=== PATIENT | male | born 1945 | race Caucasian/White ===

== ENCOUNTER → 2016-05-02 | Outpatient (CLI) | payer OTHER ==
[~2016-05-02] MED LIST: ASPI81TA28 PO; DCL/500 PO; MULTTAB58 PO
[2016-05-02 12:35] LABS: ESTIMATED AVERAGE GLUCOSE 108 mg/dl; HA1C FLAG Normal (Normal)
== END | disposition home or self-care (01) ==
LOC: C.LABBFT 08:01
PROVIDERS: ATTEND Internal Medicine
DX: R73.9 Hyperglycemia, unspecified (principal)

== ENCOUNTER → 2017-02-22 | Outpatient (CLI) | payer OTHER ==
[2017-02-22 15:39] LABS: BASO % 0.4 %; BASO ABS # 0.03 K/uL (0-0.2); EOS % 1.6 %; EOS ABS # 0.13 K/uL (0-0.5); HEMATOCRIT 43.4 % (42-52); HEMOGLOBIN 14.2 g/dL (14.0-18.0); IG# 0.03 K/uL (0.00-0.02); LYMPH ABS # 1.54 K/uL (1.2-3.4); MEAN CELL VOLUME 90.8 fL (80-100); MEAN CORPUSCULAR HEMOGLOBIN 29.7 pg (25-34); MEAN CORPUSCULAR HGB CONC 32.7 g/dl (32-36); MONO % 11.5 %; MONO ABS # 0.93 K/uL (0.11-0.59); NEUT % 67.1 %; NEUT ABS # 5.45 K/uL (1.4-6.5); PLATELET COUNT 319 K/uL (130-400); RED CELL DISTRIBUTION WIDTH CV 12.9 % (11.5-14.5); WHITE BLOOD COUNT 8.11 K/uL (4.8-10.8)
[2017-02-22 15:50] LABS: ALBUMIN 3.8 gm/dl (3.4-5.0); BLOOD UREA NITROGEN 22 mg/dl (7-18); CALCIUM 8.5 mg/dl (8.5-10.1); CARBON DIOXIDE 29 mmol/L (21-32); CREATININE 0.99 mg/dl (0.60-1.40); GLUCOSE 106 mg/dl (70-99); POTASSIUM 3.8 mmol/L (3.5-5.1); SODIUM 138 mmol/L (136-145)
[2017-02-22 15:51] LABS: ALT/SGPT 34 U/L (12-78); AST/SGOT 25 U/L (15-37)
[2017-02-22 15:53] LABS: ALKALINE PHOSPHATASE 72 U/L (45-117); TOTAL PROTEIN 6.9 gm/dl (6.4-8.2)
== END | disposition home or self-care (01) ==
LOC: C.LAB1850 13:55
PROVIDERS: ATTEND Internal Medicine Infectious Disease
DX: M00.869 Arthritis due to other bacteria, unspecified knee (principal)

== ENCOUNTER → 2017-05-11 | Outpatient (CLI) | payer OTHER ==
[2017-05-12 06:52] LABS: HEMOGLOBIN A1C 5.4 % (4.5-5.6)
== END | disposition home or self-care (01) ==
LOC: C.LABBFT 14:22
PROVIDERS: ATTEND Internal Medicine
DX: R73.9 Hyperglycemia, unspecified (principal)

== ENCOUNTER 2018-11-05 15:19 | Inpatient (IN) ==
[2018-11-05] MEDS ORDERED: PIPERACILL/TAZOBAC CONSULT ACTIVE PRN (15:40)
[2018-11-05] MEDS ORDERED: PIPERACILLIN/TAZOBACTAM 4.5 GM/120 ML BAG IV ONE (15:40)
[2018-11-05] MEDS ORDERED: SODIUM CHLORIDE 0.9% 500 ML IV SCH (15:45)
--- NOTE | 2018-11-05 16:00 | XRay Report ---
XR chest 1V portable CLINICAL HISTORY: weakness COMPARISON STUDY: Chest radiograph September 02, 2011. FINDINGS: Lung volumes are normal. Lungs are clear. There is no pneumothorax or pleural effusion. Car diomegaly is noted. Mediastinal contours are normal. Note is made of pulmonary vascular congestion. T here is no evidence for pulmonary edema. Incidental note is made of multiple old left rib fractures. IMPRESSION: Cardiomegaly and pulmonary vascular congestion. Electronically signed by: Jersey Puri M.D. 11/05/2018 3:59 PM
--- NOTE | 2018-11-05 16:02 | XRay Report ---
XR toe RT min 2V CLINICAL HISTORY: pain, trauma COMPARISON: None FINDINGS: Note is made of an acute comminuted mildly displaced fracture within the mid to distal asp ect of the proximal phalanx of the right first toe. Soft tissue swelling is present. No additional fr actures are noted. IMPRESSION: Acute comminuted mildly displaced fracture within the proximal phalanx of the right first toe. Electronically signed by: Jersey Puri M.D. 11/05/2018 4:01 PM
[2018-11-05 16:45] LABS: Basophils # (auto) 0.04 K/uL (0-0.2); Basophils % (auto) 0.5 %; Eosinophils # (auto) 0.38 K/uL (0-0.5); Eosinophils % (auto) 4.4 %; Hematocrit (blood only) 40.3 % (42-52); Hemoglobin 12.9 g/dL (14.0-18.0); Immature Granulocytes # (auto) 0.02 K/uL (0.00-0.02); Immature Granulocytes % (auto) 0.2 %; Lymphocytes # (auto) 1.43 K/uL (1.2-3.4); Lymphocytes % (auto) 16.6 %; Mean Corpuscular Hemoglobin 29.5 pg (25-34); Mean Corpuscular Volume 92.2 fL (80-100); Mean Platelet Volume 10.7 fL (7.4-10.4); Monocytes # (auto) 0.99 K/uL (0.11-0.59); Monocytes % (auto) 11.5 %; Neutrophils # (auto) 5.75 K/uL (1.4-6.5); Neutrophils % (auto) 66.8 %; Platelet Count 298 K/uL (130-400); RDW Coefficient of Variation 13.3 % (11.5-14.5); RDW Standard Deviation 44.7 fL (36.4-46.3); Red Blood Count 4.37 M/uL (4.7-6.1); White Blood Count 8.61 K/uL (4.8-10.8)
[2018-11-05 16:58] LABS: INR 1.1 (0.9-1.1); Partial Thromboplastin Time 26.2 Seconds (21.0-31.0)
[2018-11-05 17:05] LABS: Alanine Aminotransferase 35 U/L (12-78); Albumin Level 3.8 gm/dl (3.4-5.0); Aspartate Aminotransferase 21 U/L (15-37); BUN Creatinine Ratio 19.4 (10-20); Blood Urea Nitrogen 20 mg/dl (7-18); Calcium 8.8 mg/dl (8.5-10.1); Carbon Dioxide 28 mmol/L (21-32); Chloride 106 mmol/L (98-107); Creatinine Clr Calc Pharmacy 71.1 ml/min; Est GFR (African American) 81.6; Est GFR (Non-African American) 70.4; Glucose 98 mg/dl (70-99); Magnesium 2.1 mg/dl (1.8-2.4); Potassium 3.9 mmol/L (3.5-5.1); Sodium 140 mmol/L (136-145)
[2018-11-05 17:10] LABS: Albumin Globulin Ratio 1.3 (0.9-2); Alkaline Phosphatase 83 U/L (45-117); Bilirubin,Total 0.5 mg/dl (0.2-1); Creatine Kinase 117 U/L (39-308); Total Protein 6.8 gm/dl (6.4-8.2); Troponin I < 0.015 ng/ml (0-0.045)
[2018-11-05] MEDS ORDERED: IOVERSOL 100ml IV PRN (17:46)
--- NOTE | 2018-11-05 17:53 | Emergency Department Note ---
Entered by Kay Johnson acting as a scribe for Bill Calvillo MD History of Present Illness General Chief complaint: Cardiac Assessment Stated complaint: IRREGULAR EKG,INFECTION IN LOWER LEG/FOOT Time Seen by Provider: 11/05/18 15:26 Source: patient History of Present Illness Provider complaint: Atrial Fibrillation Onset (ago): day(s) 1 Location: chest Relieved By: + none Exacerbated By: + none Associated symptoms: + other (Left leg pain and right toe pain); no chest pain, no fever/chills and no shortness of breath The patient is a 73 year old male who presents to the Emergency Room with complaints of atrial fibrillation that was noticed today at the doctor's office. The patient states that he was at a doctor appointment for a right toe injury that occurred 6 days ago and a left leg injury that occurred 4 days ago and they noticed his EKG showed atrial fibrillation. The patient reports that the symptoms are not relieved nor exacerbated by anything specific. The patient denies any chest pain, fever/chills, or shortness of breath. The patient mentioned that he takes 1 baby aspirin a day but denies being on any blood thinners. Home Medications Home Medications Medication Instructions Recorded Confirmed Type dicloxacillin 500 mg capsule 500 mg PO BID #60 cap 06/04/18 11/05/18 History multivitamin-ferrous 1 tab PO QAM 06/04/18 11/05/18 History fumarate-folic acid 18 mg-400 mcg tablet aspirin 81 mg PO QAM 11/05/18 11/05/18 History Allergies Allergy/AdvReac Type Severity Reaction Status Date / Time house dust Allergy Verified 11/05/18 16:01 No Known Drug Allergies Allergy Verified 11/05/18 16:01 Past Med/Surg History Medical History Erectile dysfunction (Acute) Heme positive stool (Acute) Hyperglycemia (Acute) Hyperlipidemia (Acute) Methicillin susceptible Staphylococcus aureus infection (Acute) Pyogenic bacterial arthritis of knee (Acute) Surgical History Hx of tonsillectomy S/P surgical removal of pilonidal cyst Family History Mother Stroke Father Aneurysm Emphysema lung Social History Preferred Language: Salvadorean Visual Impairment: No Limitations Hearing Ability: Normal Beliefs That Will Affect Care: None marital status: Current Living Situation: Spouse current occupational status: retired Feels Safe at Home: Yes Smoking Status: Never smoker Second Hand Exposure: No ; Hx Alcohol Use: Yes Alcohol type: beer Alcohol Intake Frequency: Holidays/Special Occasions Hx Substance Use: No Childhood Exposure to Second-Hand Smoke: No Physical Activity Frequency: Daily Review of Systems See HPI for pertinent positives & negatives. and A total of 10 systems reviewed and were otherwise negative Physical Exam Vital Signs Vital Signs - 24 hr 11/05/18 15:20 11/05/18 15:22 11/05/18 16:52 Temperature 36.5 C Temperature Source Oral Sepsis Recent Fever Within 48 Hours No Sepsis New/Unexplained Change in Mental Status No Sepsis Action Taken by Nursing No Action Required Pulse Rate 96 H 79 Pulse Rate [Apical] 81 Respiratory Rate 18 21 Respiratory Effort / Characteristics Non-Labored Respiratory Depth Normal Blood Pressure 153/76 H Blood Pressure [Left Arm] 125/84 Blood Pressure Mean 101 Blood Pressure Mean [Left Arm] 97 Pulse Oximetry 99 99 Oxygen Delivery Method Room Air Room Air GENERAL: Patient is in no acute distress. HEENT: Healing wounds to left cheek with scabs present and no surrounding erythema. Mucous membranes moist. No nasal congestion. NECK: No stridor, no adenopathy, no meningismus, trachea is midline. LUNGS: Clear to auscultation bilaterally, no wheeze, no rhonchi, breath sounds equal. HEART: Without murmurs gallops or rubs, regular rate and rhythm. ABDOMEN: Soft, nontender, bowel sounds positive, no hernias, no peritonitis. EXTREMITIES: Right first toe is erythematous, tender and swollen with no gross deformity or drainage, there is warmth present. Fluctuant erythematous tender lesion to proximal left leg. There is surrounding erythema and the entire left leg from knee down to ankle is contused. NEUROLOGIC: Oriented x 3, no acute motor or sensory deficits, no focal weakness. SKIN: No rash, no jaundice, no diaphoresis. Course 152: Past medical records reviewed. The patient was evaluated in room B12B. A complete history and physical exam was performed. 1734: I reevaluated the patient and spoke with Dr. Burnett-Hospitalist about the patient's case and she will accept the patient for further evaluation. Administered Medications Ioversol (Optiray 320 100ml) 94 ml IV ONCE PRN PRN Reason: Interaction Checking Stop: 11/09/18 17:45 Last Admin: 11/05/18 17:47 Dose: 94 ml Documented by: [id number] Discontinued Medications Piperacillin Sod/Tazobactam Sod (Zosyn) 4.5 gm in 120 mls @ 240 mls/hr IV NOW ONE Stop: 11/05/18 16:09 Last Infusion: 11/05/18 17:48 Dose: 0 mls/hr Documented by: [id number] Admin: 11/05/18 16:49 Dose: 240 mls/hr Documented by: [id number] Sodium Chloride (Nss) 500 mls @ 999 mls/hr IV .Q31M MICHAEL Stop: 11/05/18 16:15 Last Infusion: 11/05/18 18:15 Dose: 0 mls/hr Documented by: [id number] Admin: 11/05/18 16:50 Dose: 999 mls/hr Documented by: [id number] Medical Decision Making Differential Diagnosis Differentials Include: Atrial fibrillation, Atrial flutter, Sepsis, Bacteremia, Abscess, Electrolyte imbalance, Anemia, Toe Fracture, DVT, and CT. Medical Records Attestation: I reviewed the patient's medical records. Home Medications Current Medication List: was personally reviewed by me Laboratory Data Attestation: I reviewed the patient's lab results. Result diagrams: 11/05/18 16:29 11/05/18 16:29 Lab Results 11/05/18 11/05/18 11/05/18 Range/Units 16:29 16:29 16:29 WBC 8.61 (4.8-10.8) K/uL RBC 4.37 L (4.7-6.1) M/uL Hgb 12.9 L (14.0-18.0) g/dL Hct 40.3 L (42-52) % MCV 92.2 (80-100) fL MCH 29.5 (25-34) pg MCHC 32.0 (32-36) g/dL RDW Std Deviation 44.7 (36.4-46.3) fL RDW Coeff of Jonnie 13.3 (11.5-14.5) % Plt Count 298 (130-400) K/uL MPV 10.7 H (7.4-10.4) fL Immature Gran % (Auto) 0.2 % Neut % (Auto) 66.8 % Lymph % (Auto) 16.6 % Placer % (Auto) 11.5 % Eos % (Auto) 4.4 % Baso % (Auto) 0.5 % Immature Gran # (Auto) 0.02 (0.00-0.02) K/uL Neut # (Auto) 5.75 (1.4-6.5) K/uL Lymph # (Auto) 1.43 (1.2-3.4) K/uL Placer # (Auto) 0.99 H (0.11-0.59) K/uL Eos # (Auto) 0.38 (0-0.5) K/uL Baso # (Auto) 0.04 (0-0.2) K/uL PT (9.0-12.0) Seconds INR (0.9-1.1) APTT (21.0-31.0) Seconds PTT Ratio Sodium 140 (136-145) mmol/L Potassium 3.9 (3.5-5.1) mmol/L Chloride 106 (98-107) mmol/L Carbon Dioxide 28 (21-32) mmol/L Anion Gap 6.0 (3-11) BUN 20 H (7-18) mg/dl Creatinine 1.04 (0.6-1.4) mg/dl Est Cr Clr Drug Dosing 71.1 ml/min Est GFR ( Amer) 81.6 Est GFR (Non-Af Amer) 70.4 BUN/Creatinine Ratio 19.4 (10-20) Glucose 98 (70-99) mg/dl Lactate 1.4 (0.4-2.0) mmol/L Calcium 8.8 (8.5-10.1) mg/dl Magnesium 2.1 (1.8-2.4) mg/dl Total Bilirubin 0.5 (0.2-1) mg/dl AST 21 (15-37) U/L ALT 35 (12-78) U/L Alkaline Phosphatase 83 (45-117) U/L Total Creatine Kinase 117 (39-308) U/L Troponin I < 0.015 (0-0.045) ng/ml Total Protein 6.8 (6.4-8.2) gm/dl Albumin 3.8 (3.4-5.0) gm/dl Globulin 3.0 (2.5-4.0) gm/dl Albumin/Globulin Ratio 1.3 (0.9-2) TSH (0.300-4.500) uIu/ml 11/05/18 11/05/18 Range/Units 16:29 16:29 WBC (4.8-10.8) K/uL RBC (4.7-6.1) M/uL Hgb (14.0-18.0) g/dL Hct (42-52) % MCV (80-100) fL MCH (25-34) pg MCHC (32-36) g/dL RDW Std Deviation (36.4-46.3) fL RDW Coeff of Jonnie (11.5-14.5) % Plt Count (130-400) K/uL MPV (7.4-10.4) fL Immature Gran % (Auto) % Neut % (Auto) % Lymph % (Auto) % Placer % (Auto) % Eos % (Auto) % Baso % (Auto) % Immature Gran # (Auto) (0.00-0.02) K/uL Neut # (Auto) (1.4-6.5) K/uL Lymph # (Auto) (1.2-3.4) K/uL Placer # (Auto) (0.11-0.59) K/uL Eos # (Auto) (0-0.5) K/uL Baso # (Auto) (0-0.2) K/uL PT 11.0 (9.0-12.0) Seconds INR 1.1 (0.9-1.1) APTT 26.2 (21.0-31.0) Seconds PTT Ratio 1.0 Sodium (136-145) mmol/L Potassium (3.5-5.1) mmol/L Chloride (98-107) mmol/L Carbon Dioxide (21-32) mmol/L Anion Gap (3-11) BUN (7-18) mg/dl Creatinine (0.6-1.4) mg/dl Est Cr Clr Drug Dosing ml/min Est GFR ( Amer) Est GFR (Non-Af Amer) BUN/Creatinine Ratio (10-20) Glucose (70-99) mg/dl Lactate (0.4-2.0) mmol/L Calcium (8.5-10.1) mg/dl Magnesium (1.8-2.4) mg/dl Total Bilirubin (0.2-1) mg/dl AST (15-37) U/L ALT (12-78) U/L Alkaline Phosphatase (45-117) U/L Total Creatine Kinase (39-308) U/L Troponin I (0-0.045) ng/ml Total Protein (6.4-8.2) gm/dl Albumin (3.4-5.0) gm/dl Globulin (2.5-4.0) gm/dl Albumin/Globulin Ratio (0.9-2) TSH 4.200 (0.300-4.500) uIu/ml Imaging Data Radiologist's Impression: Radiology results as stated below per my review and the radiologist's interpretation: XR chest 1V portable CLINICAL HISTORY: weakness COMPARISON STUDY: Chest radiograph September 02, 2011. FINDINGS: Lung volumes are normal. Lungs are clear. There is no pneumothorax or pleural effusion. Cardiomegaly is noted. Mediastinal contours are normal. Note is made of pulmonary vascular congestion. There is no evidence for pulmonary edema. Incidental note is made of multiple old left rib fractures. IMPRESSION: Cardiomegaly and pulmonary vascular congestion. Electronically signed by: Jersey Puri M.D. 11/05/2018 3:59 PM XR toe RT min 2V CLINICAL HISTORY: pain, trauma COMPARISON: None FINDINGS: Note is made of an acute comminuted mildly displaced fracture within the mid to distal aspect of the proximal phalanx of the right first toe. Soft tissue swelling is present. No additional fractures are noted. IMPRESSION: Acute comminuted mildly displaced fracture within the proximal phalanx of the right first toe. Electronically signed by: Jersey Puri M.D. 11/05/2018 4:01 PM Left lower leg CT scan: IMPRESSION: 1. Superficial hyperdense abnormality in the anterolateral proximal lower leg centered in the subcutaneous tissue and tracking along the superficial fascia. This could either represent hematoma or abnormal enhancing soft tissue. The density favors enhancing soft tissue. Ultrasound of this region is recommended to assess for vascular flow, which could confirm abnormal soft tissue. 2. No evidence of abscess. No CT evidence of osteomyelitis. 3. No acute osseous injury. 4. Advanced degenerative changes of the left knee. 5. Posterior mild deformity and internal fixation of the right lower leg. ECG Data Attestation: I personally reviewed and interpreted this ECG as follows: Indication: other (Atrial Fibrillation ) Rate (beats per minute): 99 Rhythm: atrial fibrillation Findings: + other (QTC 441); no PVC, no ST elevation and no acute ischemic c hange Blood Pressure Blood Pressure Findings: Elevated blood pressure Blood Pressure Disposition: further management by hospitalist PAGE Narrative There is no leukocytosis. The patient does have a very mild anemia with a hemoglobin of 12.9. There is no coagulopathy. No significant electrolyte abnormality or kidney failure. Lactic acid level is not elevated making sepsis less likely. There was no liver enzyme elevation. The patient appeared to be in a euthyroid state. EKG shows A. fib, no acute ischemic change. Cardiac enzyme testing x1 is not consistent with acute cardiac injury. Chest film does not show pneumonia or worrisome CHF. Right first toe film does show a proximal phalanx fracture. Left leg CT scan shows a hematoma, no obvious abscess. Patient received IV Zosyn as antibiotic coverage, he was given IV saline. The patient requires a hospital stay. He has new onset A. fib. He has a left leg hematoma which I think is becoming infected. His right first toe is fractured. I did speak with case management. The on-call hospitalist was consulted. The patient is aware of all his findings. Of note, as the patient's atrial fibrillation is rate controlled, no IV Cardizem was initiated. Impression & Plan New onset a-fib, Fracture of right toe, Hematoma of left lower extremity, Cellulitis of left leg Discharge Plan Visit Data Chief Complaint: Cardiac Assessment Stated Complaint: IRREGULAR EKG,INFECTION IN LOWER LEG/FOOT ED Provider: Bill Calvillo Discharge Problem: New onset a-fib, Fracture of right toe, Hematoma of left lower extremity, Cellulitis of left leg Forms Stand Alone Forms: [facility] Prescriptions Prescriptions: No Action dicloxacillin 500 mg capsule 500 mg PO BID Qty: 60 RF: 0 Centrum 18-400 mg-mcg tablet 1 tab PO QAM RF: 0 aspirin 81 mg Tablet,Delayed Release (Dr/Ec) 81 mg PO QAM RF: 0 Discharge Problem: Fracture of right toe Qualifiers: Encounter type: initial encounter Toe: unspecified toe Fracture type: closed Physeal involvement: unspecified Qualified Code(s): S92.911A - Unspecified fracture of right toe(s), initial encounter for closed fracture Hematoma of left lower extremity Qualifiers: Encounter type: initial encounter Qualified Code(s): S80.12XA - Contusion of left lower leg, initial encounter The scribe's documentation has been prepared under my direction and personally reviewed by me in its entirety. I confirm that the note above accurately reflects all work, treatment, procedures, and medical decision making performed by me.
--- NOTE | 2018-11-05 18:20 | CT Scan Report ---
CT tib/fib LT w con CLINICAL HISTORY: 73 years-old Male presenting with poss abscess or deep infection. TECHNIQUE: Multidetector CT of the left lower leg was performed after the administration of intraveno us contrast. IV contrast: 94 mL of Optiray 320. One or more dose lowering techniques were used consis tent with the principles of ALARA (as low as reasonably achievable), including automatic exposure con trol, mA or kV adjustment to individual patient size, and/or use of iterative reconstruction. COMPARISON: None. CT DOSE (mGy.cm): The estimated cumulative dose is 308.45 mGycm. FINDINGS: Chief Drafter topogram: Intramedullary nail fixation with interlocking screws in the right lower leg with leigha akage of one of the 2 proximal screws. Visualized portion of the right lower leg demonstrates intramedullary nail fixation. The left lower leg demonstrates significant fatty atrophy of the medial head of the gastrocnemius and soleus muscles. Focal hyperdense subcutaneous collection in the proximal anterolateral lower leg kelly suring 4.4 x 1.9 x 3.2 cm. This appears to track along the superficial fascia posterolaterally. The l ack of a precontrast phase limits evaluation for enhancement. This could either represent hematoma or abnormal soft tissue. The density may favor enhancing soft tissue. No evidence of a rim-enhancing collection in the lower leg. Nonspecific diffuse subcutaneous edema an d mild skin thickening. Vasculature is grossly patent though significant atherosclerosis is evident. Osseous structures intact without evidence of fracture. Advanced degenerative changes of the knee inocencio nt with joint space loss and osteophytosis to a moderate to severe degree. The left ankle mortise is congruent. Posttraumatic deformity of the inferior pole of the lateral malleolus suspected. IMPRESSION: 1. Superficial hyperdense abnormality in the anterolateral proximal lower leg centered in the subcut aneous tissue and tracking along the superficial fascia. This could either represent hematoma or abno rmal enhancing soft tissue. The density favors enhancing soft tissue. Ultrasound of this region is re commended to assess for vascular flow, which could confirm abnormal soft tissue. 2. No evidence of abscess. No CT evidence of osteomyelitis. 3. No acute osseous injury. 4. Advanced degenerative changes of the left knee. 5. Posterior mild deformity and internal fixation of the right lower leg. Electronically signed by: Bill Winters M.D. 11/05/2018 6:18 PM
--- NOTE | 2018-11-05 21:27 | History & Physical Report ---
Date of Service November 05, 2018 Assessment & Plan (1) New onset a-fib: Admit to inpatient on telemetry Consult infectious diseases Dr. Deleon for cellulitis/infected hematoma Consult cardiology for new onset of A. fib's Consult orthopedics at [facility] partner of Dr. Apodaca for celluli tis/hematoma of the left lower extremity and fracture of the big toe right foot. Paged to Dr. Bill Sepulveda. Vital signs every 4 hours BNP pending Follow follow-up CBC CMP CRP Replenish electrolytes daily Continue doxycycline for prior pyogenic bacterial arthritis of the knee Added clindamycin 600 mg every 8 hours IV Started probiotic N.p.o. after midnight for possible procedure by Ortho DVT prophylaxis contraindicated since patient has large hematoma and heparin bolus drip contraindicated for A. fib's since patient has large hematoma. Gentle hydration with IV fluid 80 cc/h of normal saline when patient is n.p.o. Follow-up blood cultures Keep left lower extremity elevated-RICE Pain management with morphine IV Continue aspirin 81 Full code Present on Admission?: Yes (2) Fracture of right toe: As above (3) Hematoma of left lower extremity: As above Present on Admission?: Yes (4) Cellulitis of left leg: As above Present on Admission?: Yes (5) Allergic rhinitis: Present on Admission?: Yes (6) Hyperglycemia: A1c pending. Patient glucose today is 98. Reassess after A1c is resulted. No signs of hyperglycemia at this visit. Present on Admission?: Yes (7) Hyperlipidemia: Lipid panel pending. There is a lipid panel start lipid lowering agent. Present on Admission?: Yes (8) Methicillin susceptible Staphylococcus aureus infection: Patient has been on doxycycline since 2010 when he had pyogenic bacterial arthritis of the knee. We will calls consult to Dr. Deleon infectious diseases. Present on Admission?: Yes History of Present Illness Chief Complaint: New onset of A. fib's, left lower extremity hematoma and cellulitis right big toe fracture. 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 fib's, a large hematoma of the left lower extremity below the knee and displaced fracture of the proximal phalanx of the right first toe. Patient states that a right toe injury occurred 6 days ago and left leg injury occurred 4 days ago and the EKG showed atrial fibrillation. Patient reports that his symptoms are not relieved or exacerbated by any specific activity. Patient denies any headache fever chills, chest pain shortness of breath abdominal pain frequency urgency hematuria dysuria. Patient said that he takes usually 1 baby aspirin but denies being on any blood thinners. For methicillin suspectible Staphylococcus aureus per recommendation of Dr. Deleon patient is on doxycycline lifelong for the prior left knee infection. Labs are reviewed: WBC 8.61, hemoglobin 12.9, hematocrit 40.3, platelets 298, PT 11, INR 1.1, APTT 26.2, sodium 140, potassium 3.9, chloride 106, BUN 20, creatinine 1.04, GFR 70.4, glucose 98, hemoglobin A1c pending lactate 1.4, magnesium 2.1, troponin 0 0.015, TSH 4.2. X-rays of right foot big toe shows acute commuted comminuted mildly displaced fracture with the proximal phalanx of the right first toe. CT scan of tibia-fibula of the left lower extremity shows's superficial hyperdense abnormality in the anterior lateral proximal lower leg centered in the subcutaneous tissue and tracking along with superficial fascia. This could either represent hematoma or abnormal enhancing soft tissue. Discussed with Dr. Winters and he was not convinced that patient has necrotizing fasciitis. The density favors into enhancing soft tissue. He did recommend ultrasound to assess the vascular flow. There was no evidence of abscess and there is no evidence of osteomyelitis. No acute osseous injury,, advanced degenerative changes of the left knee. Patient had infection of the left knee in the past and he was he was treated by Dr. Saab at [facility]. Decision was made to admit patient to PCU on telemetry for evaluation of new onset of A. fib's, large cellulitis/hematoma of the left lower extremity and fracture of the right big toe. Allergies Allergy/AdvReac Type Severity Reaction Status Date / Time house dust Allergy Verified 11/05/18 16:01 No Known Drug Allergies Allergy Verified 11/05/18 16:01 Home Medications Home Medications Medication Instructions Recorded Confirmed Type dicloxacillin 500 mg capsule 500 mg PO BID #60 cap 06/04/18 11/05/18 History multivitamin-ferrous 1 tab PO QAM 06/04/18 11/05/18 History fumarate-folic acid 18 mg-400 mcg tablet aspirin 81 mg PO QAM 11/05/18 11/05/18 History Past Med/Surg History Medical History Erectile dysfunction (Acute) Heme positive stool (Acute) Hyperglycemia (Acute) Hyperlipidemia (Acute) Methicillin susceptible Staphylococcus aureus infection (Acute) Pyogenic bacterial arthritis of knee (Acute) Surgical History Hx of tonsillectomy S/P surgical removal of pilonidal cyst Family History Mother Stroke Father Aneurysm Emphysema lung Social History Preferred Language: Monegasque Visual Impairment: No Limitations Hearing Ability: Normal Beliefs That Will Affect Care: None marital status: Current Living Situation: Spouse current occupational status: retired Feels Safe at Home: Yes Smoking Status: Never smoker Second Hand Exposure: No ; Hx Alcohol Use: Yes Alcohol type: beer Alcohol Intake Frequency: Holidays/Special Occasions Hx Substance Use: No Childhood Exposure to Second-Hand Smoke: No Physical Activity Frequency: Daily Review of Systems Review of Systems: All systems reviewed & are unremarkable except as noted in HPI & below Physical Exam Constitutional: WD/WN, vitals as above well developed Eyes: PERRL, conjunctivae normal, anicteric sclerae ENMT: external ear and nose normal, oropharynx normal Neck: trachea midline, no thyromegaly Respiratory: normal respiratory effort, lungs clear to auscultation Cardiovascular: Rate/Rhythm: + irregularly irregular Gastrointestinal (Abdomen): normal bowel sounds, soft, nontender, no hepatos plenomegaly Musculoskeletal: Knee: + ecchymosis (Large ecchymosis of the left lower extremity, erythema and cellulitis warm to touch. Bruised left big toe. Deformity of the right big toe and bruise) and + limited ROM of knee Skin: + ecchymosis Neurologic: patellar DTR's 2+ bilat, sensation intact Psychiatric: A+Ox3, euthymic affect Lymphatic: no cervical or axillary lymphadenopathy Results & Data Vital Signs (Past 12 Hours) Vital Signs Temp Pulse Pulse Resp BP BP Pulse Ox 11/05/18 21:11 91 H 18 134/78 95 11/05/18 19:30 80 18 128/87 99 11/05/18 16:52 79 81 21 125/84 99 11/05/18 15:22 36.5 C 96 H 18 153/76 H 99 Code Status & VTE Plan Code Status Full code VTE Prophylaxis Plan VTE Prophylaxis will be ordered: No PG Care Time/CCT Total # of Minutes Spent Total Time Spent with Patient: Total time spent is greater than 50% in coordination of care (as documented) at patient's floor/unit and/or counseling patient: (1) Fracture of right toe Encounter type: initial encounter Fracture type: closed Physeal involvement: unspecified Toe: unspecified toe Qualified Code(s): S92.911A - Unspecified fracture of right toe(s), initial encounter for closed fracture (2) Hematoma of left lower extremity Encounter type: initial encounter Qualified Code(s): S80.12XA - Contusion of left lower leg, initial encounter
[2018-11-05] MEDS ORDERED: ONDANSETRON INJ 2 MG/ML 2 ML VIAL IV PRN (22:07)
[2018-11-05] MEDS ORDERED: ACETAMINOPHEN 325 MG TAB PO PRN (22:07)
[2018-11-05] MEDS ORDERED: ALUMINUM/MAGNESIUM SUSP 30 ML UDC PO PRN (22:07)
[2018-11-05] MEDS ORDERED: MAGNESIUM HYDROXIDE SUSP 30 ML UDC PO PRN (22:07)
[2018-11-05] MEDS ORDERED: ZOLPIDEM TARTRATE 5 MG TAB PO PRN (22:07)
[2018-11-05] MEDS ORDERED: POLYETHYLENE (MIRALAX) 17 GM PACK PO PRN (22:07)
[2018-11-05] MEDS ORDERED: MoRPHine SULFATE 2 MG/ML CARP IV PRN (22:07)
[2018-11-05] MEDS: METOPROLOL TARTRATE 25 MG TAB PO SCH (22:52)
[2018-11-05] MEDS: SODIUM CHLORIDE 0.9% 1000ML 1,000 ML IV SCH (22:53)
[2018-11-05] MEDS: CLINDAMYCIN 600 MG in DEXTROSE 5% 50 ML IV SCH (23:52)
[2018-11-05] MEDS: DICLOXACILLIN SODIUM 250 MG CAP PO SCH (23:53)
[2018-11-06 05:41] LABS: Basophils # (auto) 0.04 K/uL (0-0.2); Basophils % (auto) 0.6 %; Eosinophils # (auto) 0.46 K/uL (0-0.5); Eosinophils % (auto) 6.8 %; Hematocrit (blood only) 37.7 % (42-52); Hemoglobin 12.1 g/dL (14.0-18.0); Immature Granulocytes # (auto) 0.02 K/uL (0.00-0.02); Immature Granulocytes % (auto) 0.3 %; Lymphocytes # (auto) 1.33 K/uL (1.2-3.4); Lymphocytes % (auto) 19.6 %; Mean Corpuscular Hemoglobin 29.2 pg (25-34); Mean Corpuscular Hgb Conc 32.1 g/dL (32-36); Mean Corpuscular Volume 90.8 fL (80-100); Mean Platelet Volume 10.8 fL (7.4-10.4); Monocytes # (auto) 0.96 K/uL (0.11-0.59); Monocytes % (auto) 14.2 %; Neutrophils # (auto) 3.96 K/uL (1.4-6.5); Neutrophils % (auto) 58.5 %; Platelet Count 278 K/uL (130-400); RDW Coefficient of Variation 13.4 % (11.5-14.5); RDW Standard Deviation 44.2 fL (36.4-46.3); Red Blood Count 4.15 M/uL (4.7-6.1); White Blood Count 6.77 K/uL (4.8-10.8)
[2018-11-06] MEDS: CLINDAMYCIN 600 MG in DEXTROSE 5% 50 ML IV SCH ×2 (06:01→14:41)
[2018-11-06 06:09] LABS: INR 1.1 (0.9-1.1); Partial Thromboplastin Time 28.1 Seconds (21.0-31.0); Prothrombin Time 11.2 Seconds (9.0-12.0)
[2018-11-06 06:12] LABS: Albumin Level 3.3 gm/dl (3.4-5.0); BUN Creatinine Ratio 15.6 (10-20); Calcium 7.9 mg/dl (8.5-10.1); Est GFR (African American) 93.4; Est GFR (Non-African American) 80.6; Potassium 4.1 mmol/L (3.5-5.1)
[2018-11-06 06:23] LABS: Albumin Globulin Ratio 1.2 (0.9-2); Bilirubin,Total 0.6 mg/dl (0.2-1); C Reactive Protein 0.66 mg/dl (0-0.29); Globulin 2.8 gm/dl (2.5-4.0); Thyroid Stimulating Hormone 5.36 uIu/ml (0.300-4.500); Total Protein 6.1 gm/dl (6.4-8.2)
[2018-11-06] MEDS: LACTOBACILLUS ACIDOPHILUS 1 GM PACK PO SCH ×2 (07:30→11:02)
[2018-11-06] MEDS: DICLOXACILLIN SODIUM 250 MG CAP PO SCH (07:30)
[2018-11-06] MEDS: METOPROLOL TARTRATE 25 MG TAB PO SCH (07:30)
[2018-11-06] MEDS ORDERED: ASPIRIN 81 MG ECTAB PO SCH (09:00)
[2018-11-06] MEDS ORDERED: CEROVITE ADV FORMULA TAB PO SCH (09:00)
--- NOTE | 2018-11-06 10:07 | Orthopedic Consultation ---
Date of Consultation November 06, 2018 Assessment & Plan (1) Fracture of right toe: Patient was offered a post op shoe for the Right foot but states that he will not use it if one is ordered. He states that he has no pain with ambulation. (2) Cellulitis of left leg: Area lightly compressed with LOUIS bandage Ice with EZ wrap Cont IV ABX per medical service Discussed with Dr. Plasencia and he will plan on I&D at bedside later this afternoon History of Present Illness Reason for Consultation: Right Great toe fracture; Left lower leg cellulitis (abscess vs hematoma) Requesting Physician: Dr. Bill Plasencia Attending Physician: Yon Shaw DO History of Present Illness This 73 yo M was seen this AM in room 229 in consultation for a Right great toe fracture and left lower leg cellulitis with central fluctuance. Patient states that he dropped a wagon tongue on his Right great toe 2 wks ago, and two days later fell in a [place] causing a superficial abrasion/laceration to the lateral surface of his left lower leg. Patient states that his made him go to his PCP's office yesterday and was advised to go to the ED at [facility]. Patient was admitted last night to Telemetry due to new onset A. Fib, Left leg cellulitis and Right great toe fracture. At this time patient has no complaints of toe or leg pain, CP, SOB, nausea, vomiting, fever, chills, sweats or lethargy. Patient is currently on IV Clindamycin and had been on oral Dicloxacillin for septic arthritis of his Left knee and is being followed by Dr. Deleon. Allergies Allergy/AdvReac Type Severity Reaction Status Date / Time house dust Allergy Verified 11/05/18 16:01 No Known Drug Allergies Allergy Verified 11/05/18 16:01 Home Medications Home Medications Medication Instructions Recorded Confirmed Type dicloxacillin 500 mg capsule 500 mg PO BID #60 cap 06/04/18 11/05/18 History multivitamin-ferrous 1 tab PO QAM 06/04/18 11/05/18 History fumarate-folic acid 18 mg-400 mcg tablet aspirin 81 mg PO QAM 11/05/18 11/05/18 History Patient History Medical History Erectile dysfunction (Acute) Heme positive stool (Acute) Hyperglycemia (Acute) Hyperlipidemia (Acute) Methicillin susceptible Staphylococcus aureus infection (Acute) Pyogenic bacterial arthritis of knee (Acute) Surgical History Hx of tonsillectomy S/P surgical removal of pilonidal cyst Family History Mother Stroke Father Aneurysm Emphysema lung Social History Preferred Language: Bengali Communication Ability: Effective Visual Impairment: No Limitations Hearing Ability: Normal Compliance Consultant Required: No Beliefs That Will Affect Care: None marital status: Current Living Situation: Family current occupational status: retired Feels Safe at Home: Yes Smoking Status: Never smoker Tobacco Type: smokeless tobacco ; Second Hand Exposure: No ; Hx Alcohol Use: No Hx Substance Use: No Childhood Exposure to Second-Hand Smoke: No Physical Activity Frequency: Daily Review of Systems Review of Systems: All systems reviewed & are unremarkable except as noted in HPI & below Physical Exam Physical Exam: Right Foot: Edema and erythema of Right great with ecchymosis to dorsal base of toes 1-3. No TTP over IP or MTP. Able to move toe. NV intact. Periph pulses easily palpable. Cap refill < 2 seconds Left lower Le cm x 4 cm raised fluctuant area to lateral aspect of left mid lowe leg with surrounding erythema, ecchymosis and warmth to touch with abraded scabbed over area at proximal border. No drainage/discharge. No TTP. Left knee normal in appearance. ROM 8-90 degrees without pain. Calf soft and supple. Periph pulses palpable. Cap refill < 2 seconds. Results & Data Vital Signs (Past 12 Hours) Vital Signs Temp Pulse Pulse Resp BP Pulse Ox 11/06/18 07:16 36.6 C 79 20 120/73 96 11/06/18 03:56 36.6 C 87 18 117/82 96 11/06/18 00:00 89 11/05/18 23:01 36.6 C 87 18 124/74 96 11/05/18 22:36 91 H Laboratory Results 11/06/18 11/06/18 11/06/18 Range/Units 05:15 05:15 05:15 WBC 6.77 (4.8-10.8) K/uL RBC 4.15 L (4.7-6.1) M/uL Hgb 12.1 L (14.0-18.0) g/dL Hct 37.7 L (42-52) % MCV 90.8 (80-100) fL MCH 29.2 (25-34) pg MCHC 32.1 (32-36) g/dL RDW Std Deviation 44.2 (36.4-46.3) fL RDW Coeff of Jonnie 13.4 (11.5-14.5) % Plt Count 278 (130-400) K/uL MPV 10.8 H (7.4-10.4) fL Immature Gran % (Auto) 0.3 % Neut % (Auto) 58.5 % Lymph % (Auto) 19.6 % [place] % (Auto) 14.2 % Eos % (Auto) 6.8 % Baso % (Auto) 0.6 % Immature Gran # (Auto) 0.02 (0.00-0.02) K/uL Neut # (Auto) 3.96 (1.4-6.5) K/uL Lymph # (Auto) 1.33 (1.2-3.4) K/uL [place] # (Auto) 0.96 H (0.11-0.59) K/uL Eos # (Auto) 0.46 (0-0.5) K/uL Baso # (Auto) 0.04 (0-0.2) K/uL PT 11.2 (9.0-12.0) Seconds INR 1.1 (0.9-1.1) APTT 28.1 (21.0-31.0) Seconds PTT Ratio 1.0 Sodium 142 (136-145) mmol/L Potassium 4.1 (3.5-5.1) mmol/L Chloride 108 H (98-107) mmol/L Carbon Dioxide 27 (21-32) mmol/L Anion Gap 7.0 (3-11) BUN 14 (7-18) mg/dl Creatinine 0.93 (0.6-1.4) mg/dl Est Cr Clr Drug Dosing 79.0 ml/min Est GFR ( Amer) 93.4 Est GFR (Non-Af Amer) 80.6 BUN/Creatinine Ratio 15.6 (10-20) Glucose 93 (70-99) mg/dl Lactate (0.4-2.0) mmol/L Calcium 7.9 L (8.5-10.1) mg/dl Magnesium (1.8-2.4) mg/dl Total Bilirubin 0.6 (0.2-1) mg/dl AST 16 (15-37) U/L ALT 31 (12-78) U/L Alkaline Phosphatase 68 (45-117) U/L Total Creatine Kinase (39-308) U/L Troponin I (0-0.045) ng/ml C-Reactive Protein 0.66 H (0-0.29) mg/dl NT-Pro-B Natriuret Pep 1900 H (0-900) pg/ml Total Protein 6.1 L (6.4-8.2) gm/dl Albumin 3.3 L (3.4-5.0) gm/dl Globulin 2.8 (2.5-4.0) gm/dl Albumin/Globulin Ratio 1.2 (0.9-2) TSH 5.360 H (0.300-4.500) uIu/ml 11/05/18 11/05/18 11/05/18 Range/Units 22:14 16:29 16:29 WBC (4.8-10.8) K/uL RBC (4.7-6.1) M/uL Hgb (14.0-18.0) g/dL Hct (42-52) % MCV (80-100) fL MCH (25-34) pg MCHC (32-36) g/dL RDW Std Deviation (36.4-46.3) fL RDW Coeff of Jonnie (11.5-14.5) % Plt Count (130-400) K/uL MPV (7.4-10.4) fL Immature Gran % (Auto) % Neut % (Auto) % Lymph % (Auto) % [place] % (Auto) % Eos % (Auto) % Baso % (Auto) % Immature Gran # (Auto) (0.00-0.02) K/uL Neut # (Auto) (1.4-6.5) K/uL Lymph # (Auto) (1.2-3.4) K/uL [place] # (Auto) (0.11-0.59) K/uL Eos # (Auto) (0-0.5) K/uL Baso # (Auto) (0-0.2) K/uL PT 11.0 (9.0-12.0) Seconds INR 1.1 (0.9-1.1) APTT 26.2 (21.0-31.0) Seconds PTT Ratio 1.0 Sodium (136-145) mmol/L Potassium (3.5-5.1) mmol/L Chloride (98-107) mmol/L Carbon Dioxide (21-32) mmol/L Anion Gap (3-11) BUN (7-18) mg/dl Creatinine (0.6-1.4) mg/dl Est Cr Clr Drug Dosing ml/min Est GFR ( Amer) Est GFR (Non-Af Amer) BUN/Creatinine Ratio (10-20) Glucose (70-99) mg/dl Lactate (0.4-2.0) mmol/L Calcium (8.5-10.1) mg/dl Magnesium (1.8-2.4) mg/dl Total Bilirubin (0.2-1) mg/dl AST (15-37) U/L ALT (12-78) U/L Alkaline Phosphatase (45-117) U/L Total Creatine Kinase (39-308) U/L Troponin I (0-0.045) ng/ml C-Reactive Protein (0-0.29) mg/dl NT-Pro-B Natriuret Pep 1962 H (0-900) pg/ml Total Protein (6.4-8.2) gm/dl Albumin (3.4-5.0) gm/dl Globulin (2.5-4.0) gm/dl Albumin/Globulin Ratio (0.9-2) TSH 4.200 (0.300-4.500) uIu/ml 11/05/18 11/05/18 11/05/18 Range/Units 16:29 16:29 16:29 WBC 8.61 (4.8-10.8) K/uL RBC 4.37 L (4.7-6.1) M/uL Hgb 12.9 L (14.0-18.0) g/dL Hct 40.3 L (42-52) % MCV 92.2 (80-100) fL MCH 29.5 (25-34) pg MCHC 32.0 (32-36) g/dL RDW Std Deviation 44.7 (36.4-46.3) fL RDW Coeff of Jonnie 13.3 (11.5-14.5) % Plt Count 298 (130-400) K/uL MPV 10.7 H (7.4-10.4) fL Immature Gran % (Auto) 0.2 % Neut % (Auto) 66.8 % Lymph % (Auto) 16.6 % [place] % (Auto) 11.5 % Eos % (Auto) 4.4 % Baso % (Auto) 0.5 % Immature Gran # (Auto) 0.02 (0.00-0.02) K/uL Neut # (Auto) 5.75 (1.4-6.5) K/uL Lymph # (Auto) 1.43 (1.2-3.4) K/uL [place] # (Auto) 0.99 H (0.11-0.59) K/uL Eos # (Auto) 0.38 (0-0.5) K/uL Baso # (Auto) 0.04 (0-0.2) K/uL PT (9.0-12.0) Seconds INR (0.9-1.1) APTT (21.0-31.0) Seconds PTT Ratio Sodium 140 (136-145) mmol/L Potassium 3.9 (3.5-5.1) mmol/L Chloride 106 (98-107) mmol/L Carbon Dioxide 28 (21-32) mmol/L Anion Gap 6.0 (3-11) BUN 20 H (7-18) mg/dl Creatinine 1.04 (0.6-1.4) mg/dl Est Cr Clr Drug Dosing 71.1 ml/min Est GFR ( Amer) 81.6 Est GFR (Non-Af Amer) 70.4 BUN/Creatinine Ratio 19.4 (10-20) Glucose 98 (70-99) mg/dl Lactate 1.4 (0.4-2.0) mmol/L Calcium 8.8 (8.5-10.1) mg/dl Magnesium 2.1 (1.8-2.4) mg/dl Total Bilirubin 0.5 (0.2-1) mg/dl AST 21 (15-37) U/L ALT 35 (12-78) U/L Alkaline Phosphatase 83 (45-117) U/L Total Creatine Kinase 117 (39-308) U/L Troponin I < 0.015 (0-0.045) ng/ml C-Reactive Protein (0-0.29) mg/dl NT-Pro-B Natriuret Pep (0-900) pg/ml Total Protein 6.8 (6.4-8.2) gm/dl Albumin 3.8 (3.4-5.0) gm/dl Globulin 3.0 (2.5-4.0) gm/dl Albumin/Globulin Ratio 1.3 (0.9-2) TSH (0.300-4.500) uIu/ml (1) Fracture of right toe Encounter type: initial encounter Fracture type: closed Physeal involvement: unspecified Toe: unspecified toe Qualified Code(s): S92.911A - Unspecified fracture of right toe(s), initial encounter for closed fracture
[2018-11-06] MEDS ORDERED: LIDOCAINE HCL 1% 20 ML VIAL ONE (10:15)
--- NOTE | 2018-11-06 10:17 | Infectious Disease Consult ---
Date of Consultation November 06, 2018 Assessment & Plan (1) Cellulitis of left leg: Patient with likely hematoma of the left lower leg with possible secondary cellulitis. For now, clindamycin should provide adequate coverage. Await decision from orthopedics regarding surgical drainage of collection on CT. Will follow. History of Present Illness Reason for Consultation: Right lower extremity cellulitis and hematoma Attending Physician: Yon Shaw DO History of Present Illness 73-year-old male well-known to me from follow-up for a previously infected left total knee prosthesis. He is now on chronic suppressive therapy with doxycycline and has been well over several years without evidence of recurrent infection. He recently suffered an injury while working in a [employer] field, and was admitted yesterday with atrial fibrillation, with finding of a fracture of his right great toe as well as a hematoma with possible cellulitis of his left lower leg. He has been started on IV clindamycin. Cultures are pending. CT scan shows likely hematoma, less likely soft tissue infection. Patient states the pain currently reasonably well controlled, currently afebrile. Allergies Allergy/AdvReac Type Severity Reaction Status Date / Time house dust Allergy Verified 11/05/18 16:01 No Known Drug Allergies Allergy Verified 11/05/18 16:01 Patient History Medical History Mitral regurgitation Atrial fibrillation Erectile dysfunction (Acute) Heme positive stool (Acute) Hyperglycemia (Acute) Hyperlipidemia (Acute) Methicillin susceptible Staphylococcus aureus infection (Acute) Pyogenic bacterial arthritis of knee (Acute) Surgical History Hx of tonsillectomy S/P surgical removal of pilonidal cyst Family History Mother Stroke Father Aneurysm Emphysema lung Social History Preferred Language: Urdu Communication Ability: Effective Visual Impairment: No Limitations Hearing Ability: Normal Community Organization Aide Required: No Beliefs That Will Affect Care: None marital status: Current Living Situation: Spouse current occupational status: retired Feels Safe at Home: Yes Smoking Status: Never smoker Tobacco Type: smokeless tobacco ; Second Hand Exposure: No ; Hx Alcohol Use: Yes Alcohol type: beer Alcohol Intake Frequency: Holidays/Special Occasions Hx Substance Use: No Childhood Exposure to Second-Hand Smoke: No Physical Activity Frequency: Daily Review of Systems Review of Systems: All systems reviewed & are unremarkable except as noted in HPI & below Physical Exam Constitutional: WD/WN, vitals as above comfortable; no acute distress Eyes: PERRL, conjunctivae normal, anicteric sclerae ENMT: external ear and nose normal, oropharynx normal Neck: trachea midline, no thyromegaly neck nontender Respiratory: normal respiratory effort, lungs clear to auscultation normal percussion; does not use accessory muscles Cardiovascular: Rate/Rhythm: regular rate and + irregularly irregular Heart Sounds: normal S1 and normal S2; no gallop, no murmur and no cardiac rub Vessels: normal peripheral pulses; no JVD Gastrointestinal (Abdomen): normal bowel sounds, soft, nontender, no hepatosplenomegaly Musculoskeletal: no cyanosis or clubbing, extremities motor strength 5/5 Head/Neck/Chest: normocephalic, head atraumatic and neck supple Spine: thoracic spine normal to inspection and lumbar spine normal to inspection; no cervical spinal tenderness Skin: no rashes, warm and dry normal turgor and + erythema (Erythema discoloration with increased warmth left lateral leg below the knee) Right great toe red and indurated Neurologic: patellar DTR's 2+ bilat, sensation intact no focal motor deficits Psychiatric: A+Ox3, euthymic affect Orientation: cooperative Lymphatic: no cervical or axillary lymphadenopathy no inguinal lymphadenopathy Results & Data Vital Signs (Past 12 Hours) Vital Signs Temp Pulse Pulse Resp BP Pulse Ox 11/06/18 07:16 36.6 C 79 20 120/73 96 11/06/18 03:56 36.6 C 87 18 117/82 96 11/06/18 00:00 89 11/05/18 23:01 36.6 C 87 18 124/74 96 11/05/18 22:36 91 H Laboratory Results Short CBC 11/05/18 11/06/18 Range/Units 16:29 05:15 WBC 8.61 6.77 (4.8-10.8) K/uL Hgb 12.9 L 12.1 L (14.0-18.0) g/dL Hct 40.3 L 37.7 L (42-52) % Plt Count 298 278 (130-400) K/uL BMP 11/05/18 11/06/18 16:29 05:15 Sodium 140 142 Potassium 3.9 4.1 Chloride 106 108 H Carbon Dioxide 28 27 BUN 20 H 14 Creatinine 1.04 0.93 Glucose 98 93 Calcium 8.8 7.9 L Cardiac Enzymes 11/05/18 Range/Units 16:29 Total Creatine Kinase 117 (39-308) U/L Troponin I < 0.015 (0-0.045) ng/ml Liver Function 11/05/18 11/06/18 Range/Units 16:29 05:15 Total Bilirubin 0.5 0.6 (0.2-1) mg/dl AST 21 16 (15-37) U/L ALT 35 31 (12-78) U/L Alkaline Phosphatase 83 68 (45-117) U/L Albumin 3.8 3.3 L (3.4-5.0) gm/dl Diagnostic Findings CT tib/fib LT w con CLINICAL HISTORY: 73 years-old Male presenting with poss abscess or deep infection. TECHNIQUE: Multidetector CT of the left lower leg was performed after the administration of intravenous contrast. IV contrast: 94 mL of Optiray 320. One or more dose lowering techniques were used consistent with the principles of ALARA (as low as reasonably achievable), including automatic exposure control, mA or kV adjustment to individual patient size, and/or use of iterative reconstruction. COMPARISON: None. CT DOSE (mGy.cm): The estimated cumulative dose is 308.45 mGycm. FINDINGS: Ship [employer] topogram: Intramedullary nail fixation with interlocking screws in the right lower leg with breakage of one of the 2 proximal screws. Visualized portion of the right lower leg demonstrates intramedullary nail fixation. The left lower leg demonstrates significant fatty atrophy of the medial head of the gastrocnemius and soleus muscles. Focal hyperdense subcutaneous collection in the proximal anterolateral lower leg measuring 4.4 x 1.9 x 3.2 cm. This appears to track along the superficial fascia posterolaterally. The lack of a precontrast phase limits evaluation for enhancement. This could either represent hematoma or abnormal soft tissue. The density may favor enhancing soft tissue. No evidence of a rim-enhancing collection in the lower leg. Nonspecific diffuse subcutaneous edema and mild skin thickening. Vasculature is grossly patent though significant atherosclerosis is evident. Osseous structures intact without evidence of fracture. Advanced degenerative changes of the knee joint with joint space loss and osteophytosis to a moderate to severe degree. The left ankle mortise is congruent. Posttraumatic deformity of the inferior pole of the lateral malleolus suspected. IMPRESSION: 1. Superficial hyperdense abnormality in the anterolateral proximal lower leg centered in the subcutaneous tissue and tracking along the superficial fascia. This could either represent hematoma or abnormal enhancing soft tissue. The density favors enhancing soft tissue. Ultrasound of this region is recommended to assess for vascular flow, which could confirm abnormal soft tissue. 2. No evidence of abscess. No CT evidence of osteomyelitis. 3. No acute osseous injury. 4. Advanced degenerative changes of the left knee. 5. Posterior mild deformity and internal fixation of the right lower leg. Electronically signed by: iBll Winters M.D. 11/05/2018 6:18 PM Dictated: 11/05/18 1809 Transcribed: 11/05/18 1811 PG Care Time/CCT Total # of Minutes Spent Total Time Spent with Patient: Total time spent is greater than 50% in coordination of care (as documented) at patient's floor/unit and/or counseling patient:
[2018-11-06] MEDS ORDERED: XYLOCAINE 1%/SOD BICARB 20 ML VIAL INFIL ONE (10:28)
[2018-11-06] MEDS ORDERED: LIDOCAINE HCL 1% 20 ML VIAL INFIL ONE (10:29)
--- NOTE | 2018-11-06 10:57 | Family Medicine Progress Note ---
Date of Service November 06, 2018 Assessment & Plan (1) New onset a-fib: 73 yo M w/ COPD new onset A. fib, right 1st toe fracture and left leg cellulitis Left leg cellulitis - currently on Clindamycin 600 mg @ 100 ml/hr Q8 - CRP elevated at .66 - NPO for possible I&D this afternoon - blood cultures pending - pain control with: Acetaminophen 650 mg Q4 PRN, Morphine s. 1 mg Q3 PRN Right 1st toe comminuted slightly displaced fracture - ortho consulted - rec: post op shoe New onset A. fib - rate currently controlled - Metoprolol t. 12.5 mg BID - EKG: A. fib 11/05 pro BNP 1900 - no history of HF - consider TTE to evaluate for DVT: contraindicated due to hematoma Diet: NPO for procedure Code: Full (2) Fracture of right toe: (3) Hematoma of left lower extremity: (4) Cellulitis of left leg: (5) Allergic rhinitis: (6) Hyperglycemia: (7) Hyperlipidemia: (8) Methicillin susceptible Staphylococcus aureus infection: (9) Pyogenic bacterial arthritis of knee: Subjective Subjective Mr. Florez had fallen in a corn field and developed a bruise and cuts on the left side of his face. He states that he has no history of a irregular heart rate. He mentioned that he would like to eat and that he was told that there was not going to be a procedure by someone the day prior. He mentioned that he is not currently in pain and has no history of pain with walking. Review of Systems Constitutional: no fever and no chills Respiratory: no cough denies shortness of breath denies sputum production Cardiovascular: no chest pain and no chest pain at rest Gastrointestinal: no nausea and no vomiting Genitourinary: no dysuria, no urinary frequency and no urinary hesitancy Physical Exam Constitutional: well nourished and + acute distress well healed facial laceration on the left side of face Respiratory: normal respiratory effort, lungs clear to auscultation Cardiovascular: RRR, no murmur, no edema Gastrointestinal (Abdomen): normal bowel sounds, soft, nontender, no hepatosplenomegaly Skin: Left lateral leg with 5-7cm of local inflammation, warmth, and tender. No tracking appreciated Results & Data Vital Signs (Past 12 Hours) Vital Signs Temp Pulse Pulse Resp BP Pulse Ox 11/06/18 07:16 36.6 C 79 20 120/73 96 11/06/18 03:56 36.6 C 87 18 117/82 96 11/06/18 00:00 89 11/05/18 23:01 36.6 C 87 18 124/74 96 PG Care Time/CCT Total # of Minutes Spent Total Time Spent with Patient: Total time spent is greater than 50% in coordination of care (as documented) at patient's floor/unit and/or counseling patient: (1) Fracture of right toe Encounter type: initial encounter Fracture type: closed Physeal involvement: unspecified Toe: unspecified toe Qualified Code(s): S92.911A - Unspecified fracture of right toe(s), initial encounter for closed fracture (2) Hematoma of left lower extremity Encounter type: initial encounter Qualified Code(s): S80.12XA - Contusion of left lower leg, initial encounter
[2018-11-06] MEDS: SODIUM CHLORIDE 0.9% 1000ML 1,000 ML IV SCH (12:17)
[2018-11-06] MEDS: LACTOBACILLUS ACIDOPHILUS (FLORANEX) TAB PO SCH ×2 (12:17→18:13)
--- NOTE | 2018-11-06 12:21 | Cardiology Consultation ---
Date of Consultation November 06, 2018 Assessment & Plan (1) Atrial fibrillation: New diagnosis for him. He is completely asymptomatic. Heart rate is adequately controlled on low-dose beta-robin. Can titrate beta-robin if necessary. We discussed the diagnosis and possible treatment strategies. Recommend conservative, rate control strategy. He has not been significantly tachycardic, even prior to beta-robin. Chads Vasc score currently 1, and will be 2 at his next birthday. Once surgical procedure is complete and bleeding risk is acceptable in regards to his left lower extremity infection/wound, can start Eliquis for stroke risk reduction. (2) Mitral regurgitation: Non severe. Asymptomatic. This can be monitored over time. Disposition: He would like to follow-up in the cardiology office periodically. Cardiology office will contact him to help set up appointment. Please call with any other questions or concerns during this hospitalization. History of Present Illness Reason for Consultation: New onset atrial fibrillation Requesting Physician: Dr. Burnett Attending Physician: Yon Shaw DO History of Present Illness Mr. Florez is a very pleasant 73-year-old gentleman history significant for dyslipidemia, cellulitis, left lower extremity cellulitis/hematoma who was admitted to [facility] on 11/05/2018 with right toe fracture, left lower extremity findings, and newly diagnosed atrial fibrillation. He was at his PCPs office yesterday and was noted to be in atrial fibrillation. He was completely asymptomatic in this regard. He denies chest pain, shortness of breath, syncope, near-syncope, palpitations, orthopnea, PND, or bleeding such as melena, hematochezia, or hematuria. He was placed on metoprolol 12.5 mg twice daily by the admitting physician. He is tolerating this well. Recently, he dropped the tongue of a wagon on his right foot, causing a fracture. He also has been following with infectious disease, Dr. Deleon, for left lower extremity cellulitis with possible infected hematoma. Orthopedics has seen him earlier today and plan for possible I and D later this afternoon. He is on antibiotics. He denies a history of diabetes, heart failure, TIA, stroke, hypertension, or atherosclerotic disease. Review of systems: As above. Review of systems otherwise negative/unremarkable. Family history: No known premature CAD. Mother with stroke. Social history: No smoking. No alcohol. He is and lives at home with his and son. He has 2 sons and 1 daughter. Grandchildren. He worked at a [employer]. 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 His , daughter, and grandson are present at the bedside. Allergies Allergy/AdvReac Type Severity Reaction Status Date / Time house dust Allergy Verified 11/05/18 16:01 No Known Drug Allergies Allergy Verified 11/05/18 16:01 Home Medications Home Medications Medication Instructions Recorded Confirmed Type dicloxacillin 500 mg capsule 500 mg PO BID #60 cap 06/04/18 11/05/18 History multivitamin-ferrous 1 tab PO QAM 06/04/18 11/05/18 History fumarate-folic acid 18 mg-400 mcg tablet aspirin 81 mg PO QAM 11/05/18 11/05/18 History Patient History Medical History Erectile dysfunction (Acute) Heme positive stool (Acute) Hyperglycemia (Acute) Hyperlipidemia (Acute) Methicillin susceptible Staphylococcus aureus infection (Acute) Pyogenic bacterial arthritis of knee (Acute) Surgical History Hx of tonsillectomy S/P surgical removal of pilonidal cyst Family History Mother Stroke Father Aneurysm Emphysema lung Social History Preferred Language: Georgian Communication Ability: Effective Visual Impairment: No Limitations Hearing Ability: Normal Nurse Substance Abuse Required: No Beliefs That Will Affect Care: None marital status: Current Living Situation: Family current occupational status: retired Feels Safe at Home: Yes Smoking Status: Never smoker Tobacco Type: smokeless tobacco ; Second Hand Exposure: No ; Hx Alcohol Use: No Hx Substance Use: No Childhood Exposure to Second-Hand Smoke: No Physical Activity Frequency: Daily Physical Exam Physical Exam: Gen.: No acute distress. Alert and oriented. HEENT: Anicteric sclera. Neck: No JVD. No bruits. Normal carotid upstrokes bilaterally. Cardiac: PMI was nondisplaced. No ventricular heave. Irregularly irregular, but rate controlled. Normal S1-S2. No murmurs, rubs, or gallops. Pulmonary: Clear to auscultation bilaterally without wheezes, rales, or rhonchi. Abdomen: Soft, nontender, nondistended, with normoactive bowel sounds. No bruits noted. Extremities: 2+ radial pulses bilaterally. 2+ posterior tibialis pulses bilaterally. 1+ left lower extremity edema below his wound bandage. There is swelling of the right foot near his great toe but no pitting edema. Distal right lower extremity deformity status post prior fracture and surgery. No cyanosis. Psychiatric: Affect appears appropriate. Results & Data Vital Signs (Past 12 Hours) Vital Signs Temp Pulse Resp BP Pulse Ox 11/06/18 11:28 36.8 C 87 20 143/91 H 96 11/06/18 07:16 36.6 C 79 20 120/73 96 11/06/18 03:56 36.6 C 87 18 117/82 96 Laboratory Results Laboratory Results - last 24 hr 11/05/18 11/05/18 11/05/18 16:29 16:29 16:29 WBC 8.61 RBC 4.37 L Hgb 12.9 L Hct 40.3 L MCV 92.2 MCH 29.5 MCHC 32.0 RDW Std Deviation 44.7 RDW Coeff of Jonnie 13.3 Plt Count 298 MPV 10.7 H Immature Gran % (Auto) 0.2 Neut % (Auto) 66.8 Lymph % (Auto) 16.6 Sauk % (Auto) 11.5 Eos % (Auto) 4.4 Baso % (Auto) 0.5 Immature Gran # (Auto) 0.02 Neut # (Auto) 5.75 Lymph # (Auto) 1.43 Sauk # (Auto) 0.99 H Eos # (Auto) 0.38 Baso # (Auto) 0.04 PT INR APTT PTT Ratio Sodium 140 Potassium 3.9 Chloride 106 Carbon Dioxide 28 Anion Gap 6.0 BUN 20 H Creatinine 1.04 Est Cr Clr Drug Dosing 71.1 Est GFR ( Amer) 81.6 Est GFR (Non-Af Amer) 70.4 BUN/Creatinine Ratio 19.4 Glucose 98 Lactate 1.4 Calcium 8.8 Magnesium 2.1 Total Bilirubin 0.5 AST 21 ALT 35 Alkaline Phosphatase 83 Total Creatine Kinase 117 Troponin I < 0.015 C-Reactive Protein NT-Pro-B Natriuret Pep Total Protein 6.8 Albumin 3.8 Globulin 3.0 Albumin/Globulin Ratio 1.3 TSH 11/05/18 11/05/18 11/05/18 16:29 16:29 22:14 WBC RBC Hgb Hct MCV MCH MCHC RDW Std Deviation RDW Coeff of Jonnie Plt Count MPV Immature Gran % (Auto) Neut % (Auto) Lymph % (Auto) Sauk % (Auto) Eos % (Auto) Baso % (Auto) Immature Gran # (Auto) Neut # (Auto) Lymph # (Auto) Sauk # (Auto) Eos # (Auto) Baso # (Auto) PT 11.0 INR 1.1 APTT 26.2 PTT Ratio 1.0 Sodium Potassium Chloride Carbon Dioxide Anion Gap BUN Creatinine Est Cr Clr Drug Dosing Est GFR ( Amer) Est GFR (Non-Af Amer) BUN/Creatinine Ratio Glucose Lactate Calcium Magnesium Total Bilirubin AST ALT Alkaline Phosphatase Total Creatine Kinase Troponin I C-Reactive Protein NT-Pro-B Natriuret Pep 1962 H Total Protein Albumin Globulin Albumin/Globulin Ratio TSH 4.200 11/06/18 11/06/18 11/06/18 05:15 05:15 05:15 WBC 6.77 RBC 4.15 L Hgb 12.1 L Hct 37.7 L MCV 90.8 MCH 29.2 MCHC 32.1 RDW Std Deviation 44.2 RDW Coeff of Jonnie 13.4 Plt Count 278 MPV 10.8 H Immature Gran % (Auto) 0.3 Neut % (Auto) 58.5 Lymph % (Auto) 19.6 Sauk % (Auto) 14.2 Eos % (Auto) 6.8 Baso % (Auto) 0.6 Immature Gran # (Auto) 0.02 Neut # (Auto) 3.96 Lymph # (Auto) 1.33 Sauk # (Auto) 0.96 H Eos # (Auto) 0.46 Baso # (Auto) 0.04 PT 11.2 INR 1.1 APTT 28.1 PTT Ratio 1.0 Sodium 142 Potassium 4.1 Chloride 108 H Carbon Dioxide 27 Anion Gap 7.0 BUN 14 Creatinine 0.93 Est Cr Clr Drug Dosing 79.0 Est GFR ( Amer) 93.4 Est GFR (Non-Af Amer) 80.6 BUN/Creatinine Ratio 15.6 Glucose 93 Lactate Calcium 7.9 L Magnesium Total Bilirubin 0.6 AST 16 ALT 31 Alkaline Phosphatase 68 Total Creatine Kinase Troponin I C-Reactive Protein 0.66 H NT-Pro-B Natriuret Pep 1900 H Total Protein 6.1 L Albumin 3.3 L Globulin 2.8 Albumin/Globulin Ratio 1.2 TSH 5.360 H Diagnostic Findings ECG personally reviewed. ECG 11/05/2018: AFib 99 bpm. Compared to 08/31/2011, AFib has replaced sinus rhythm. Telemetry personally reviewed: Atrial fibrillation. Echo 11/06/2018: Normal LV size, wall motion, systolic function. EF 55-60%. Mild LVH. Severe biatrial dilation. Mild MR. RVSP 31. Medications Administered Current Inpatient Medications Acetaminophen (Tylenol) 650 mg PO Q4H PRN PRN Reason: Pain or Fever Stop: 12/05/18 22:06 Al Hydrox/Mg Hydrox/Simethicone (Maalox) 15 ml PO Q4H PRN PRN Reason: Dyspepsia Stop: 12/05/18 22:06 Aspirin (Ecotrin Ectab) 81 mg PO QAM [facility] Stop: 12/06/18 08:59 Last Admin: 11/06/18 07:30 Dose: 81 mg Documented by: Diclofenac Sodium (Dynapen) 500 mg PO BID [facility] Stop: 11/15/18 22:06 Last Admin: 11/06/18 07:30 Dose: 500 mg Documented by: Sodium Chloride (Nss 1000ml) 1,000 mls @ 80 mls/hr IV .[id number] [facility] Stop: 12/05/18 22:06 Last Admin: 11/06/18 12:17 Dose: 80 mls/hr Documented by: Clindamycin Phosphate 600 mg/ (Dextrose) 54 mls @ 100 mls/hr IV Q8H [facility] Stop: 11/15/18 22:29 Last Infusion: 11/06/18 06:45 Dose: Infused Documented by: Lactobacillus Acidophilus (Floranex) 4 tab PO TIDM [facility] Stop: 12/06/18 11:59 Last Admin: 11/06/18 12:17 Dose: 4 tab Documented by: Magnesium Hydroxide (Milk Of Magnesia) 30 ml PO Q12H PRN PRN Reason: Constipation Stop: 12/05/18 22:06 Metoprolol Tartrate (Lopressor) 12.5 mg PO BID [facility] Stop: 12/05/18 22:06 Last Admin: 11/06/18 07:30 Dose: 12.5 mg Documented by: Morphine Sulfate (Morphine Sulfate) 1 mg IV Q3H PRN PRN Reason: Pain Stop: 11/19/18 22:06 Multivitamins/Minerals (Multivitamin W/ Minerals Tab) 1 tab PO QAM MICHAEL Stop: 12/06/18 08:59 Last Admin: 11/06/18 07:30 Dose: 1 tab Documented by: Ondansetron HCl (Zofran) 4 mg IV Q6H PRN PRN Reason: Nausea Stop: 12/05/18 22:06 Polyethylene Glycol (Miralax Powder Packet) 17 gm PO DAILY PRN PRN Reason: Constipation Stop: 12/05/18 22:06 Zolpidem Tartrate (Ambien) 5 mg PO HS PRN PRN Reason: Sleep Stop: 12/05/18 22:06 PG Care Time/CCT Total # of Minutes Spent Total Time Spent with Patient: Total time spent is greater than 50% in coordination of care (as documented) at patient's floor/unit and/or counseling patient:
--- NOTE | 2018-11-06 16:32 | Ultrasound Report ---
US extremity non-vascular ltd CLINICAL HISTORY: 73 years-old Male presenting with hematoma w/ concern on CT. TECHNIQUE: Real-time grayscale ultrasound imaging of the left lower leg was performed for a focused e valuation at the site of clinical concern. Color Doppler ultrasound imaging was also performed. COMPARISON: CT from yesterday. FINDINGS: At the site of clinical concern in the lateral proximal left lower leg, complex hypoechoic collection measuring 5.4 x 1.5 x 4.3 cm. This is avascular on color Doppler consistent with a collection. Surro unding subcutaneous edema and dilated lymphatics. IMPRESSION: 1. Avascular collection at the site of clinical concern consistent with a hematoma. Electronically signed by: Bill Winters M.D. 11/06/2018 4:31 PM
--- NOTE | 2018-11-06 18:04 | Progress Note ---
DATE: 11/06/2018 The patient is seen in conjunction with the physician's chemical laboratory assistant, Evelina Carver, and Danitza Mosqueda. For further details, refer to their dictation. I saw and evaluated them and I am in agreement with the treatment plan. Nonoperative management of the subacute right big toe fracture and nonoperative management of left leg hematoma which does not appear to be infected. We will follow.
--- NOTE | 2018-11-06 19:30 | Discharge Summary ---
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 fib's, a large hematoma of the left lower extremity below the knee and displaced fracture of the proximal phalanx of the right first toe. Patient states that a right toe injury occurred 6 days ago and left leg injury occurred 4 days ago and the EKG showed atrial fibrillation. Patient reports that his symptoms are not relieved or exacerbated by any specific activity. Patient denies any headache fever chills, chest pain shortness of breath abdominal pain frequency urgency hematuria dysuria. Patient said that he takes usually 1 baby aspirin but denies being on any blood thinners. For methicillin suspectible Staphylococcus aureus per recommendation of Dr. Deleon patient is on doxycycline lifelong for the prior left knee infection. Labs are reviewed: WBC 8.61, hemoglobin 12.9, hematocrit 40.3, platelets 298, PT 11, INR 1.1, APTT 26.2, sodium 140, potassium 3.9, chloride 106, BUN 20, creatinine 1.04, GFR 70.4, glucose 98, hemoglobin A1c pending lactate 1.4, magnesium 2.1, troponin 0 0.015, TSH 4.2. X-rays of right foot big toe shows acute commuted comminuted mildly displaced fracture with the proximal phalanx of the right first toe. CT scan of tibia-fibula of the left lower extremity shows's superficial hyperdense abnormality in the anterior lateral proximal lower leg centered in the subcutaneous tissue and tracking along with superficial fascia. This could either represent hematoma or abnormal enhancing soft tissue. Discussed with Dr. Winters and he was not convinced that patient has necrotizing fasciitis. The density favors into enhancing soft tissue. He did recommend ultrasound to assess the vascular flow. There was no evidence of abscess and there is no evidence of osteomyelitis. No acute osseous injury,, advanced degenerative changes of the left knee. Patient had infection of the left knee in the past and he was he was treated by Dr. Saab at [facility]. Decision was made to admit patient to PCU on telemetry for evaluation of new onset of A. fib's, large cellulitis/hematoma of the left lower extremity and fracture of the right big toe. Principal Diagnosis New onset atrial fibrillation Leg hematoma/mild cellulitis Toe fracture Discharge Exam General he is awake and alert pleasant no distress, HEENT normal cephalic atraumatic mucous members moist. Breathing unlabored no accessory muscle use good effort. Skin shows no rashes diffusely, his left lower extremity has a large area of bruising with may be a little bit of dull erythema, and there is a small approximately 3 cm area of fluctuance at the proximal end of this, that is not very red and not very tender. Cardio shows good rate control. No focal neuro deficits. Good mental status. Discharge Data Allergies Allergy/AdvReac Type Severity Reaction Status Date / Time house dust Allergy Verified 11/05/18 16:01 No Known Drug Allergies Allergy Verified 11/05/18 16:01 Consultations 11/05/18 17:29 ED Decision to Admit Stat 11/05/18 22:07 Consult Cardiology Routine Consult General Surgery Routine 11/06/18 01:42 Consult Infectious Diseases Routine 11/06/18 18:32 Consult [facility] calendar control clerk blood bank Routine Ordered Studies 11/05/18 15:35 CT tib/fib LT w con Stat 11/06/18 08:35 US extremity non-vascular ltd Routine Hospital Course (1) New onset a-fib: Rate controlledbut because there is enough room to provide a little bit of a "ceiling" on rate control with his current heart rates and blood pressures, add 25 mg of metoprolol succinate daily. Titrate as needed. -Chads vascular right now is 1, in July it will be 2. Either way he warrants anticoagulation, we discussed this, but given that he is at the lower end of the risk scale bridging is not necessary. Would recommend initiating a DOAC once is clear that the leg hematoma is resolving (more than likely in 1 to 2 weeks), discussed this with patient and family who expressed understanding. (2) Fracture of right toe: Orthopedics input appreciated, shoe prescribed. Discussed with patient the importance of wearing the shoes so that the toe heals as well as possible, as he seemed to notes to orthopedics that he was unlikely to wear it. Discussed risk of having a painful and arthritic toe for the rest of his life being higher if it does not heal well now compared to if he takes care of it. (3) Hematoma of left lower extremity: No need for incision and drainage. Conservative care. Time. Otherwise as above with A. fib, will hold off on anticoagulation until this is resolved more (4) Cellulitis of left leg: Not septic. Stable for home. ID agrees with clindamycin. Would want to make sure patient is up-to-date on his tetanus (can be followed up as an outpatient). Given clindamycin, recommended probiotic to mitigate potential for diarrhea. 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 Continue chronic suppressive therapy Total Time Total Time Spent Total Time Spent (In Minutes): Greater than 30 Discharge Plan Discharge Items Patient Disposition: Home - Self-Care Reason For Visit: NEW ONSET AFIBS,LARGE LLE HEMATOMA W CELLULITIS Discharge Diagnosis: see below Activity: Per Instructions section Activity Comment: use the boot so that your toe heals well! Non-emergency contact: Primary Care Provider and Surgeon Call non-emergency contact if: you have any medication questions and your symptoms worsen Follow-up/Referrals: Joshua Garcia MD [Primary Care Provider] - Diet: Regular Addtl Attending Provider Instructions: leg hematoma and cellulitis -this happened due to the fall and cut - but fortunately nothing needs to be drained at this time - more than likely with time the whole area will heal on its own. we'll finish a course of antibiotics to clear the infection portion of it, the bleeding under the skin (hematoma) should resolve itself over time. we'll have your PCP and Dr Plasencia keep an eye on things; if you're behind on your tetanus shot we should catch you up over the next few weeks -if the area gets bigger/redder/more painful then get seen right away -clindamycin (the antibiotic dr deleon thought would be helpful) does have a reasonable propensity for diarrhea - so we've started you on a probiotic to try to make this less probable. for this purpose, there's not really one type of probiotic better than another, but we'd recommend when you stop at the pharmacy you pickling drum operator one and take it for the duration of your antibiotic broken toe -it's only minimally displaced, so it should heal well on its own, but we definitely want you to wear the shoe so that it heals well - it's probably going to be a little annoying to wear right now, but remember that if you don't have it heal well, then you could easily risk having a toe that hurts a lot and bothers you on any given day, as opposed to just having something that's annoying for the next few weeks -we'll have you follow up with Dr Plasencia and PSObdulio cruz to make sure things continue to heal OK atrial fibrillation -as we discussed, you were found to have atrial fibrillation - this is an irregular rhythm of your heart where the top part of the heart (atria) quiver rather than contract -- because of this, it creates an irregular heartbeat. the actual irregular heartbeat is usually no big deal in and of itself- where afib creates problems is if the heart is racing because of the irregularity - which s o far you haven't shown to be your case; or because a stagnant pond can form in the [id number] atria and that can allow clots to form that can lead to a stroke -heart rate - your rates have been good, but because atrial fibrillation does have a propensity to cause racing, we're starting you on metoprolol as a medication to keep a degree of a "ceiling" on your heart racing. most of the time at low doses, metoprolol sits well, but if you were to feel weak/lightheaded/dizzy, then we'd want you to talk with your regular docs about stopping or changing to a different medication -clot prevention - as we discussed, your particular risk of stroke as it relates to the afib sits at about 1.3% risk per year (based on what's called a CHADS- Vasc calculation) -- however, once you're 75, the risk goes up a little to more like 2.2% per year. while those actual numbers are fairly small, atrial fibrillation strokes tend to be from fairly large clots (think: about the size of the tip of your pinky finger) and so there's a lot of brain tissue that can get killed off by clots that size. said differently, afib strokes are usually ones that leave people permanently impaired. while being on a blood thinner of course raises risk of bleeding some, that risk is far less (and serious bleeds are almost always more easily treated) than afib related strokes. -we'll leave you off of a blood thinner for the next 1-2 weeks to give the leg a chance to heal, since there's not an emergency to starting the blood thinners; but as you're following up, once it's clear that the leg is healing, we'd recommend starting a blood thinner such as eliquis to reduce the chances of a stroke ---> we'll be asking our navigator to get you appointments with your PCP and with orthopedics to follow up on all this Pending Studies at Discharge: No Stand-Alone Forms: [facility] Medications and DC Order Prescriptions: New clindamycin HCl 300 mg capsule 300 mg PO Q8H 7 Days Qty: 21 RF: 0 metoprolol succinate 25 mg tablet extended release 24 hr 25 mg PO DAILY Qty: 30 RF: 0 Continued dicloxacillin 500 mg capsule 500 mg PO BID Qty: 60 RF: 0 Centrum 18-400 mg-mcg tablet 1 tab PO QAM RF: 0 aspirin 81 mg Tablet,Delayed Release (Dr/Ec) 81 mg PO QAM RF: 0 Discharge Orders: Discharge Order (Routine); Ordered 11/06/18 Ordered By: Yon Shaw Admission Data Admit Date/Time: 11/05/18 21:06 Attending Provider: Yon Shaw Admit Provider: Otto Burnett Primary Care Provider: Joshua Garcia Other Providers: Otto Burnett ; Jaxson Bourne ; Bill Damon ; Prieto Deleon Other Interventions: Discharge Summary Assessment (RN) Last Done: 11/06/18 18:34 DC Date/Time DO NOT enter until pt leaves facility: 11/06/18 19:12
== END 2018-11-06 19:12 | disposition home or self-care (01) | DRG 309 ==
LOC: ED 15:19 → SUATTDRO 21:06 → 2S 21:06

== ENCOUNTER 2023-08-08 14:23 | Inpatient (IN) ==
--- NOTE | 2023-08-08 14:54 | Emergency Department Note ---
Impression & Plan Fracture of left hip ED Provider Note CHIEF COMPLAINT: Fall 1 hour ago, left hip pain HISTORY OF PRESENT ILLNESS: Patient is a 78-year-old male with past medical history significant for CHF, hypertension, asthma, dyslipidemia, A-fib on Xarelto, liver cirrhosis, among other chronic medical problems who was brought to the emergency department via EMS for evaluation of left hip pain. Patient reports he was walking out of his kitchen and missed his breezeway, when he slipped and fell, landing on his left hip. He tried to get up but was unable to due to pain, and thus laid on the ground and EMS was summoned. He complains of pain in the left lateral hip and mid thigh that is a 6/10. No numbness, tingling or weakness radiating down the leg. He did not strike his head or lose consciousness. He denies any other injuries. REVIEW OF SYSTEMS: Review of systems as per HPI. All other systems reviewed were negative. 10 systems reviewed. PAST MEDICAL HISTORY: External medical records are reviewed and summarized as above/below. See Problem List. SOCIAL HISTORY: Patient lives at home. PHYSICAL EXAM: Vital Signs: Reviewed Nurse's notes. GENERAL: Uncomfortable but otherwise well-appearing 78-year-old male laying on the gurney supine. HEENT: Head - normocephalic and atraumatic. Pupils are equal, round, and reactive to light. Extraocular eye muscles are intact and sclera are anicteric. Ears - bilaterally patent canals with no evidence of hemotympanum. Nose - moist nasal mucosa without evidence of trauma or discharge. Mouth - moist buccal mucosa with no trauma to the teeth or signs of malocclusion. Neck: The neck is supple and there is no pain to palpation over the posterior cervical spine and no obvious step-offs or deformities. There is no JVD or tracheal deviation. Chest: There are no signs of deformities, contusions or abrasions to the chest wall. There is no obvious crepitus or paradoxical chest rise. Heart: Regular rate, and regular rhythm. Murmur noted. Lungs: Breath sounds equal and clear to auscultation. Abdomen: Bowel sounds are present. No signs of trauma to the abdomen including abrasions or contusions. The abdomen is soft, nontender nondistended. No guarding or rebound. Extremities: Left lower extremity is externally rotated and mildly shortened. There is soft tissue swelling in the proximal aspect of the left thigh/hip. He is tender to palpation over the anterior lateral aspect of the proximal femur. No pain at the knee. There are easily palpable peripheral pulses. Neuro: The patient is awake and alert and easily able to follow commands. Otherwise, neuro exam is unremarkable. EMERGENCY DEPARTMENT COURSE: The patient was seen and assessed as above. External medical records are reviewed. He presents to the emergency department for evaluation of a mechanical fall with left hip pain. IV lock was initiated. Laboratory studies/EKG/chest x-ray were collected for preoperative medical clearance. He was treated with morphine and Zofran IV. X-rays of the left femur and pelvis were obtained. Patient reviewed with attending physician, Dr. Collins. Diagnostics, as interpreted by me: Laboratory studies: White count 10,700. H&H 13.3 and 42.3, platelet count 267,000. INR 1.3. No electrolyte imbalance. No ELENI. Urine microscopy without signs of infection. ECG: Rate controlled atrial fibrillation at 103 bpm. Cardiac Monitoring: Cardiac monitoring: An order was placed for continuous cardiac monitoring. The monitor shows a atrial fibrillation around 100 bpm per my interpretation. Imaging studies: Left hip/pelvic x-rays comminuted intertrochanteric hip fracture. Chest x-ray clear. No consolidation. Aortic valvular prosthesis noted. X-ray findings were discussed with the patient and recommended admission for medical clearance/surgical intervention. He was in agreement. He did require an additional dose of morphine 4 mg IV. Patient discussed with ED behavioral health case manager. [facility] Discussed patient with orthopedic surgeon on-call, Dr. Sarmiento. Please refer to H&P and orthopedic consultation for further information. Differential diagnosis: Hip fracture, pelvic fracture, hip dislocation, soft tissue contusion, hematoma, among others. Past Med/Surg History Problem List History of MRSA infection Altered mental status Atrial fibrillation with RVR Closed intertrochanteric fracture of left femur History of septic arthritis Chronic heart failure with preserved ejection fraction (HFpEF) Primary hypertension Allergy-induced asthma NO INHALER Hyperlipidemia (Acute) Hyperglycemia (Acute) Heme positive stool (Acute) Erectile dysfunction (Acute) Allergic rhinitis (Acute) Atrial fibrillation Mitral regurgitation Borderline abnormal thyroid function test Anemia Sensorineural hearing loss of both ears Cerumen impaction Edema of right lower extremity Chronic diastolic CHF (congestive heart failure) (Acute) Liver cirrhosis Otomycosis of left ear Medical History Arthritis Atrial fibrillation FOLLOWED BY DR. BUSH Hx of congestive heart failure REASON FOR LASIX Pyogenic bacterial arthritis of knee TAKES ANX CHRONIC TX Surgical History History of left cataract surgery H/O knee surgery I&D LEFT KNEE History of tooth extraction History of fracture of leg Right leg - compound leg fracture>HARDWARE INTACT S/P surgical removal of pilonidal cyst Hx of tonsillectomy Family History Mother Stroke Father Aneurysm Emphysema lung Other No family history of adverse response to anesthesia No family history of bleeding disorder Denies family history of Ovarian cancer Prostate cancer Hearing loss Heart disease Myocardial infarction Breast cancer Lung cancer Colorectal cancer Cancer Hypertension Asthma Social History Smoking Status: Never smoker Second Hand Exposure: No; Do You Dip or Chew Tobacco: No; Hx Alcohol Use: No Hx Substance Use: No Preferred Language: Italian Communication Ability: Effective Visual Impairment: No Limitations Hearing Ability: Use of Hearing Aid Pharmacology Teacher Required: No Beliefs That Will Affect Care: None marital status: / Current Living Situation: Family Current Living Situation Comment: SON current occupational status: retired 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, 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 How many Children do You have: 3 Feels Safe at Home: Yes Childhood Exposure to Second-Hand Smoke: No Diet: regular caffeine: Yes during the past year weight has: remained stable Dental Care, Regularly: No Physical Activity Frequency: Daily Seatbelt Use: always Sunscreen Use: No Assistive Devices: Denture - Upper, Denture - Lower, Glasses and Hearing Aid - Bilateral Allergies Allergies Allergy/AdvReac Type Severity Reaction Status Date / Time house dust Allergy Mild breathing Verified 08/08/23 17:18 problems cephalexin [From Keflex] AdvReac Mild Rash Verified 08/08/23 17:18 Home Meds Home Medications Medication Instructions Recorded Confirmed multivitamin-ferrous 1 tab PO QAM 06/04/18 08/08/23 fumarate-folic acid 18 mg-400 mcg tablet (Centrum) potassium chloride 20 mEq 20 meq PO QAM 08/08/23 08/08/23 tablet,extended release Previous Rx's Medication Instructions Recorded metoprolol succinate 25 mg 25 mg PO QAM #90 tabs 10/31/22 tablet,extended release 24 hr rivaroxaban 20 mg tablet (Xarelto) 20 mg PO QAM #90 tabs 10/31/22 dicloxacillin 500 mg capsule 500 mg PO BID Pyogenic bacterial 03/24/23 arthritis of knee #180 caps albuterol sulfate 90 mcg/actuation 2 puff inhalation Q6H PRN 06/29/23 aerosol inhaler shortness of breath or wheezing #8.5 grams furosemide 20 mg tablet 20 mg PO DAILY #90 tabs 07/07/23 Results & Data (ED) Vital Signs Vital Signs - 24 hr 08/08/23 14:32 08/08/23 15:00 08/08/23 16:32 Temperature 36.4 C L Temperature Source Oral Pulse Rate 108 H Pulse Rate [Apical] 94 H 108 H Pulse Rhythm [Apical] Irregular Respiratory Rate 24 19 22 Respiratory Effort / Characteristics Spontaneous Labored Respiratory Depth Normal Respiratory Pattern Regular Blood Pressure 125/87 Blood Pressure [Right Arm] 122/95 109/90 Blood Pressure Mean 99 Blood Pressure Mean [Right Arm] 104 96 Pulse Oximetry 95 96 Oxygen Delivery Method Room Air Room Air Room Air Oxygen Flow Rate Sepsis Recent Fever Within 48 Hours No Sepsis New/Unexplained Change in Mental Status N/A Sepsis Action Taken by Nursing No Action Required 08/08/23 17:00 08/08/23 18:00 08/08/23 18:08 Temperature Temperature Source Pulse Rate 111 H Pulse Rate [Apical] 104 H 113 H Pulse Rhythm [Apical] Irregular Respiratory Rate 15 19 Respiratory Effort / Characteristics Respiratory Depth Respiratory Pattern Blood Pressure Blood Pressure [Right Arm] 98/75 L 105/75 Blood Pressure Mean Blood Pressure Mean [Right Arm] 82 85 Pulse Oximetry 95 Oxygen Delivery Method Room Air Nasal Cannula Oxygen Flow Rate 2 Sepsis Recent Fever Within 48 Hours Sepsis New/Unexplained Change in Mental Status Sepsis Action Taken by Nursing 08/08/23 18:31 Temperature Temperature Source Pulse Rate Pulse Rate [Apical] 128 H Pulse Rhythm [Apical] Irregular Respiratory Rate 24 Respiratory Effort / Characteristics Respiratory Depth Respiratory Pattern Blood Pressure Blood Pressure [Right Arm] 147/98 H Blood Pressure Mean Blood Pressure Mean [Right Arm] 114 Pulse Oximetry 94 Oxygen Delivery Method Nasal Cannula Oxygen Flow Rate 2 Sepsis Recent Fever Within 48 Hours Sepsis New/Unexplained Change in Mental Status Sepsis Action Taken by Group Home Medications Current Medication List: was personally reviewed by me Laboratory Data Attestation: I reviewed the patient's lab results. 08/08/23 14:55 08/08/23 14:55 Lab Results 08/08/23 08/08/23 Range/Units 14:55 Unknown WBC 10.74 (4.8-10.8) K/ul RBC 4.46 L (4.70-6.10) M/uL Hgb 13.3 L (14.0-18.0) g/dl Hct 42.3 (42.0-52.0) % MCV 94.8 (80.0-100.0) fL MCH 29.8 (25.0-34.0) pg MCHC 31.4 L (32.0-36.0) g/dL RDW Std Deviation 49.4 H (36.4-46.3) fL RDW Coeff of Jonnie 14.3 (11.5-14.5) % Plt Count 267 (130-400) K/uL MPV 11.3 (9.4-12.4) fL Immature Gran % (Auto) 0.9 % Neut % (Auto) 75.3 % Lymph % (Auto) 9.6 % [place] % (Auto) 12.0 % Eos % (Auto) 1.5 % Baso % (Auto) 0.7 % Neut # (Auto) 8.09 H (1.40-6.50) K/uL Lymph # (Auto) 1.03 L (1.20-3.40) K/uL [place] # (Auto) 1.29 H (0.11-0.59) K/uL Eos # (Auto) 0.16 (0.00-0.50) K/uL Baso # (Auto) 0.07 (0.00-0.20) K/uL Immature Gran # (Auto) 0.10 (0.01-0.20) K/uL PT 13.7 H (9.0-12.0) Seconds INR 1.3 H (0.9-1.1) APTT 31 (21-31) Seconds PTT Ratio 1.2 Sodium 140 (136-145) mmol/L Potassium 4.4 (3.5-5.1) mmol/L Chloride 103 (98-107) mmol/L Carbon Dioxide 31 (21-32) mmol/L Anion Gap 6 (3-11) BUN 22 (6-23) mg/dl Creatinine 0.94 (0.6-1.4) mg/dl Est Cr Clr Drug Dosing 74.1 ml/min Est GFR ( Amer) 89.0 ml/min Est GFR (Non-Af Amer) 76.8 ml/min BUN/Creatinine Ratio 23.4 H (10-20) Glucose 105 H (70-99(Fasting)) mg/dl Calcium 9.2 (8.6-10.3) mg/dl Total Bilirubin 0.8 (0.2-1.0) mg/dl AST 52 H (13-39) U/L ALT 43 (7-52) U/L Alkaline Phosphatase 218 H (34-104) U/L Total Protein 6.7 (6.0-8.3) gm/dl Albumin 4.1 (3.4-5.0) gm/dl Globulin 2.6 (2.5-4.0) gm/dl Albumin/Globulin Ratio 1.6 (0.9-2) Urine Color Yellow Urine Appearance Clear (Clear) Urine pH 6.5 (4.5-7.5) Ur Specific [place] 1.018 (1.000-1.030) Urine Protein Negative (Negative) Urine Glucose (UA) Negative (Negative) Urine Ketones Negative (Negative) Urine Blood Negative (Negative) Urine Nitrite Negative (Negative) Urine Bilirubin Negative (Negative) Urine Urobilinogen Negative (Negative) Ur Leukocyte Esterase Trace H (Negative) Urine WBC (Auto) 0-5 (0-5) /hpf Urine RBC (Auto) 0-2 (0-2) /hpf U Hyaline Cast (Auto) 0-2 (0-2) /lpf U Epithel Cells (Auto) 0-2 (0-2) /hpf Urine Bacteria (Auto) None Seen (None Seen) Administered Medications Discontinued Medications Morphine Sulfate (Morphine Sulfate 4 Mg/Ml 1 Ml Carp\Vial) 4 mg IV NOW STA Stop: 08/08/23 14:58 Last Admin: 08/08/23 15:05 Dose: 4 mg Documented By: RHETT Morphine Sulfate (Morphine Sulfate 4 Mg/Ml 1 Ml Carp\Vial) 4 mg IV NOW STA Stop: 08/08/23 16:35 Last Admin: 08/08/23 16:37 Dose: 4 mg Documented By: BEATRIZ Ondansetron HCl (Ondansetron Inj 2 Mg/Ml 2 Ml Vial) 4 mg IV NOW STA Stop: 08/08/23 14:58 Last Admin: 08/08/23 15:05 Dose: 4 mg Documented By: RHETT Imaging Data Attestation: I personally reviewed and interpreted this imaging study as follows: Radiologist's Impression: Chest X-Ray 08/08/23 14:48 XR chest 1V portable CLINICAL HISTORY: hip pain/preop TECHNIQUE: Single frontal radiograph of the chest was obtained. Comparison: Comparison is made to chest radiograph 07/05/2023 FINDINGS: No lines and tubes are seen. Aortic valvular prosthesis is seen. Prominence and cephalization of the vasculature is seen. No evidence of pleural effusion or pneumothorax. IMPRESSION: Cardiomegaly and mild pulmonary edema. ACT 112: Negative or not required by law. Electronically signed by: Maurice Middleton M.D. 08/08/2023 4:22 PM Femur X-Ray 08/08/23 14:48 XR femur LT 2V routine, XR pelvis 1-2V routine CLINICAL HISTORY: HIP FRACTURE TECHNIQUE: 2 radiographic views of the left femur and one view of the pelvis were obtained. Comparison: Comparison is made to CT pelvis 04/16/2020 FINDINGS: Comminuted fracture of the proximal femur at the level of the greater trochanter. The visualized portion of the hip and knee joints are unremarkable. Soft tissue swelling is seen. IMPRESSION: Comminuted fracture of the proximal left femur with associated soft tissue swelling. ACT 112: Negative or not required by law. Electronically signed by: Maurice Middleton M.D. 08/08/2023 4:24 PM Pelvis X-Ray 08/08/23 14:48 XR femur LT 2V routine, XR pelvis 1-2V routine CLINICAL HISTORY: HIP FRACTURE TECHNIQUE: 2 radiographic views of the left femur and one view of the pelvis were obtained. Comparison: Comparison is made to CT pelvis 04/16/2020 FINDINGS: Comminuted fracture of the proximal femur at the level of the greater trochanter. The visualized portion of the hip and knee joints are unremarkable. Soft tissue swelling is seen. IMPRESSION: Comminuted fracture of the proximal left femur with associated soft tissue swelling. ACT 112: Negative or not required by law. Electronically signed by: Maurice Middleton M.D. 08/08/2023 4:24 PM Discharge Plan Visit Data Chief Complaint: Fall Stated Complaint: FALL ED Provider: Kaci Collins ED Midlevel Provider: Rhona Ramirez Discharge Problem: Fracture of left hip Patient Disposition: Being Evaluated by Hospitalist Forms Stand Alone Forms: My [facility] [place] [employer] Prescriptions Prescriptions: No Action albuterol sulfate 90 mcg/actuation HFA aerosol inhaler 2 puff inhalation Q6H PRN (Reason: shortness of breath or wheezing) Qty: 8.5 3RF Centrum 18-400 mg-mcg tablet 1 tab PO QAM dicloxacillin 500 mg capsule 500 mg PO BID Qty: 180 3RF Patient Comments: TAKES CHRONIC FOR KNEE ARTHRITIS INFECTION metoprolol succinate 25 mg tablet extended release 24 hr 25 mg PO QAM Qty: 90 3RF Xarelto 20 mg tablet 20 mg PO QAM Qty: 90 3RF Rx Instructions: must administer with a meal/food furosemide 20 mg tablet 20 mg PO DAILY Qty: 90 3RF Rx Instructions: May take an additional 20 mg PRN for weight gain, edema, or SOB. potassium chloride 20 mEq tablet extended release 20 meq PO QAM Rx Instructions: TAKE 1 TABLET BY MOUTH ONCE DAILY IN THE MORNING Referrals Referrals: Carly Russ MD [Primary Care Provider] -
[2023-08-08] MEDS: ONDANSETRON INJ 2 MG/ML 2 ML VIAL IV STA (15:05)
[2023-08-08] MEDS: MoRPHine SULFATE 4 MG/ML 1 ML CARP\\VIAL IV STA ×2 (15:05→16:37)
[2023-08-08 15:12] LABS: Appearance Urine Clear (Clear); Bacteria Urine Automated None Seen (None Seen); Bilirubin Urine Negative (Negative); Blood Urine Negative (Negative); Cast Urine Automated 0-2 /lpf (0-2); Color Urine Yellow; Epithelial Cell Urine Auto 0-2 /hpf (0-2); Glucose Urine UA Negative (Negative); Ketones Urine Negative (Negative); Leukocyte Esterase Urine Trace (Negative); Nitrite Urine Negative (Negative); Protein Urine Negative (Negative); RBC Urine Automated 0-2 /hpf (0-2); Specific Gravity Urine 1.018 (1.000-1.030); Urobilinogen Urine Negative (Negative); WBC Urine Automated 0-5 /hpf (0-5); pH Urine 6.5 (4.5-7.5)
[2023-08-08 15:20] LABS: Basophils # (auto) 0.07 K/uL (0.00-0.20); Basophils % (auto) 0.7 %; Eosinophils # (auto) 0.16 K/uL (0.00-0.50); Eosinophils % (auto) 1.5 %; Hematocrit (blood only) 42.3 % (42.0-52.0); Hemoglobin 13.3 g/dl (14.0-18.0); Immature Granulocytes % (auto) 0.9 %; Lymphocytes # (auto) 1.03 K/uL (1.20-3.40); Lymphocytes % (auto) 9.6 %; Mean Corpuscular Hemoglobin 29.8 pg (25.0-34.0); Mean Corpuscular Hgb Conc 31.4 g/dL (32.0-36.0); Mean Corpuscular Volume 94.8 fL (80.0-100.0); Mean Platelet Volume 11.3 fL (9.4-12.4); Monocytes # (auto) 1.29 K/uL (0.11-0.59); Neutrophils # (auto) 8.09 K/uL (1.40-6.50); Neutrophils % (auto) 75.3 %; Platelet Count 267 K/uL (130-400); RDW Coefficient of Variation 14.3 % (11.5-14.5); RDW Standard Deviation 49.4 fL (36.4-46.3); Red Blood Count 4.46 M/uL (4.70-6.10); White Blood Count 10.74 K/ul (4.8-10.8)
[2023-08-08 15:38] LABS: Albumin Globulin Ratio 1.6 (0.9-2); Albumin Level 4.1 gm/dl (3.4-5.0); BUN Creatinine Ratio 23.4 (10-20); Bilirubin,Total 0.8 mg/dl (0.2-1.0); Calcium 9.2 mg/dl (8.6-10.3); Creatinine Clr Calc Pharmacy 74.1 ml/min; Est GFR (Non-African American) 76.8 ml/min; Globulin 2.6 gm/dl (2.5-4.0); Potassium 4.4 mmol/L (3.5-5.1); Total Protein 6.7 gm/dl (6.0-8.3)
[2023-08-08 15:45] LABS: INR 1.3 (0.9-1.1); Partial Thromboplastin Ratio 1.2; Partial Thromboplastin Time 31 Seconds (21-31); Prothrombin Time 13.7 Seconds (9.0-12.0)
--- NOTE | 2023-08-08 16:23 | XRay Report ---
XR chest 1V portable CLINICAL HISTORY: hip pain/preop TECHNIQUE: Single frontal radiograph of the chest was obtained. Comparison: Comparison is made to chest radiograph 07/05/2023 FINDINGS: No lines and tubes are seen. Aortic valvular prosthesis is seen. Prominence and cephalization of the vasculature is seen. No evidence of pleural effusion or pneumothorax. IMPRESSION: Cardiomegaly and mild pulmonary edema. ACT 112: Negative or not required by law. Electronically signed by: Maurice Middleton M.D. 08/08/2023 4:22 PM
--- NOTE | 2023-08-08 16:25 | XRay Report ---
XR femur LT 2V routine, XR pelvis 1-2V routine CLINICAL HISTORY: HIP FRACTURE TECHNIQUE: 2 radiographic views of the left femur and one view of the pelvis were obtained. Comparison: Comparison is made to CT pelvis 04/16/2020 FINDINGS: Comminuted fracture of the proximal femur at the level of the greater trochanter. The visualized port ion of the hip and knee joints are unremarkable. Soft tissue swelling is seen. IMPRESSION: Comminuted fracture of the proximal left femur with associated soft tissue swelling. ACT 112: Negative or not required by law. Electronically signed by: Maurice Middleton M.D. 08/08/2023 4:24 PM
[2023-08-08] MEDS ORDERED: MoRPHine SULFATE 4 MG/ML 1 ML CARP\\VIAL IV PRN (16:34)
--- NOTE | 2023-08-08 16:48 | Orthopedic Consultation ---
Date of Service August 08, 2023 Assessment & Plan (1) Closed intertrochanteric fracture of left femur: Full consult to follow. 78-year-old ambulatory male with a left peritrochanteric femur fracture from a fall today. This fracture is best treated with surgical stabilization with a trochanteric fixation nail. Will need medical clearances. -Please make n.p.o. at midnight -Ordered TXA for fracture bleeding today -NWB and bedrest. Pain control -Plan for surgery as early as tomorrow. -Hold Xarelto, if risks do not outweigh benefits from a cardiac perspective -Please contact if there will be a delay of medical clearance History of Present Illness Reason for Consultation: Left hip fracture Requesting Physician: . 78-year-old male sustained fall today resulting in immediate pain in his left hip and inability to ambulate. He and his daughter report that he occasionally uses a walker, but not all the time. He lives with his oldest son. He has been in generalized good health. He does have a history of a tibial nail on the right lower extremity from a farm injury that healed without complication. He also has a history of a septic [place] knee on the right managed by Dr. Bill Plasencia, that has required chronic suppressive antibiotics that he has been continuing for years. Allergies Allergy/AdvReac Type Severity Reaction Status Date / Time house dust Allergy Mild breathing Verified 08/08/23 17:18 problems cephalexin [From Keflex] AdvReac Mild Rash Verified 08/08/23 17:18 Home Medications Medication Instructions Recorded Confirmed Type multivitamin-ferrous 1 tab PO QAM 06/04/18 08/08/23 History fumarate-folic acid 18 mg-400 mcg tablet (Centrum) metoprolol succinate 25 mg 25 mg PO QAM #90 tabs 10/31/22 08/08/23 Rx tablet,extended release 24 hr rivaroxaban 20 mg tablet (Xarelto) 20 mg PO QAM #90 tabs 10/31/22 08/08/23 Rx dicloxacillin 500 mg capsule 500 mg PO BID Pyogenic bacterial 03/24/23 08/08/23 Rx arthritis of knee #180 caps albuterol sulfate 90 mcg/actuation 2 puff inhalation Q6H PRN 06/29/23 08/08/23 Rx aerosol inhaler shortness of breath or wheezing #8.5 grams furosemide 20 mg tablet 20 mg PO DAILY #90 tabs 07/07/23 08/08/23 Rx potassium chloride 20 mEq 20 meq PO QAM 08/08/23 08/08/23 History tablet,extended release Past Med/Surg History Problem List Preop cardiovascular exam History of MRSA infection Altered mental status Atrial fibrillation with RVR Closed intertrochanteric fracture of left femur History of septic arthritis Primary hypertension Hyperlipidemia (Acute) Hyperglycemia (Acute) Heme positive stool (Acute) Erectile dysfunction (Acute) Allergic rhinitis (Acute) Atrial fibrillation Mitral regurgitation Borderline abnormal thyroid function test Anemia Sensorineural hearing loss of both ears Cerumen impaction Edema of right lower extremity Chronic diastolic CHF (congestive heart failure) (Acute) Liver cirrhosis Otomycosis of left ear Medical History Chronic heart failure with preserved ejection fraction (HFpEF) Allergy-induced asthma NO INHALER Arthritis Atrial fibrillation FOLLOWED BY DR. BUSH Hx of congestive heart failure REASON FOR LASIX Pyogenic bacterial arthritis of knee TAKES ANX CHRONIC TX Surgical History History of left cataract surgery H/O knee surgery I&D LEFT KNEE History of tooth extraction History of fracture of leg Right leg - compound leg fracture>HARDWARE INTACT S/P surgical removal of pilonidal cyst Hx of tonsillectomy Family History Mother Stroke Father Aneurysm Emphysema lung Other No family history of adverse response to anesthesia No family history of bleeding disorder Denies family history of Ovarian cancer Prostate cancer Hearing loss Heart disease Myocardial infarction Breast cancer Lung cancer Colorectal cancer Cancer Hypertension Asthma Social History Smoking Status: Never smoker Second Hand Exposure: No; Do You Dip or Chew Tobacco: No; Hx Alcohol Use: No Hx Substance Use: No Preferred Language: Irish Communication Ability: Effective Visual Impairment: No Limitations Hearing Ability: Use of Hearing Aid Environmental Science Instructor Required: No Beliefs That Will Affect Care: None marital status: / Current Living Situation: Family Current Living Situation Comment: patient lives with son current occupational status: retired 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 Physical Exam Left hip: Mild edema throughout the soft tissues. No skin compromise or ecchymosis developing. Positive DF/PF/EHL. Sensation grossly intact to light touch throughout the foot. Constitutional WD/WN, vitals as above no acute distress and not intoxicated appearing Respiratory normal respiratory effort; no labored breathing Cardiovascular Extremities: normal capillary refill Results & Data Results & Data Laboratory Results H & H 08/08/23 Range/Units 14:55 Hgb 13.3 L (14.0-18.0) g/dl Hct 42.3 (42.0-52.0) % Coagulation 08/08/23 Range/Units 14:55 INR 1.3 H (0.9-1.1) Diagnostic Findings Radiographs of the pelvis show a comminuted peritrochanteric fracture of the left proximal femur with subtrochanteric extension. Mild hip OA. PG Care Time/CCT Total # of Minutes Spent Total Time Spent with Patient: Total time spent is greater than 50% in coordination of care (as documented) at patient's floor/unit and/or counseling patient: Coding Level of Care Code 17512 IN/OBS CONSULT LVL 4,60M (57 - DECISION FOR SURGERY) Diagnoses Closed displaced intertrochanteric fracture of left femur, initial encounter S72.142A Encounter type: initial encounter Fracture alignment: displaced (1) Closed intertrochanteric fracture of left femur Encounter type: initial encounter Fracture alignment: displaced Qualified Code(s): S72.142A - Displaced intertrochanteric fracture of left femur, initial encounter for closed fracture
--- NOTE | 2023-08-08 16:51 | Emergency Department Note ---
ED Visit Note I was consulted by the Advanced Practice Provider. I approved the management plan and take responsibility for the patient management. -History/Physical/Personally seeing the patient -MDM -I independently interpreted the following studies:Studies and results .
--- NOTE | 2023-08-08 17:12 | History & Physical Report ---
Date of Service August 08, 2023 Assessment & Plan (1) Closed intertrochanteric fracture of left femur: Plan: Ground-level fall on 08/07; no LOC; no head strike; patient landed on the left hip Left femur x-ray revealed comminuted fracture of the proximal femur CT left hip ordered, pending Orthopedic surgery consulted Plan is to go to the OR with Dr. Sarmiento on 08/08 at 7 AM if cleared Cardiology consulted for preop clearance Revised cardiac risk index: 1 point for CHF No PMH of WI, stroke, DM; Cr<2.0 Multimodal pain regimen: Acetaminophen 1000 g IV q8h scheduled Dilaudid IV q4h as needed for breakthrough pain N.p.o. at midnight A.m. CBC, BMP, PT/INR (2) Altered mental status: Plan: A&O x 2; short and paused speech at time of admission; not oriented to month/season, and reports that it is "March" Head CT without acute findings Suspect secondary to morphine administration in the ED Titrate supplemental oxygen as needed to maintain SpO2 >94% (3) Chronic heart failure with preserved ejection fraction (HFpEF): Plan: Last echo on 07/27/2023 revealed LVEF at 60 to 65%; moderate tricuspid regurgitation Heart healthy, low-sodium diet Daily weights Strict I and O monitoring Hold Lasix prior to surgery (4) Atrial fibrillation with RVR: Plan: A-fib with RVR on arrival Lopressor 5mg IV q6h as needed for HR>140bpm Continuous telemetry monitoring PCU status (5) History of MRSA infection: Plan: 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 at midnight) VTE PPx: Hold Xarelto prior to surgery History of Present Illness Chief Complaint: Fall on left hip Primary Care Provider: Carly Russ MD Kvng is a 78-year-old male with PMH of HFpEF, liver cirrhosis, mitral vegetation, atrial fibrillation (on rivaroxaban), hyperlipidemia, and septic arthritis. He presented via EMS after sustaining a ground-level fall from standing on 08/07. Patient exhibits some confusion at time of admission, and responds with slow, paused speech. Patient reports that he tripped while stepping out of his doorway around 1330 today. No LOC. No head strike. On Xarelto. Patient was unable to put weight on his left leg after the incident. He lives with his son. He denies any prior falls, but notes he was not using his walker at the time of the fall. He denies pain after receiving morphine in the ED, but does note intermittent, sharp pain that radiates down the left thigh into the foot with movements. He rates it 10/10 whenever it comes on, but reports that it is not frequent as long as he keeps his leg still. He did not take any pain medicine prior to coming to the hospital. He reports that he did take his regular morning medications today, including his Xarelto for atrial fibrillation. In terms of cardiac history, he denies history of stroke, WI, diabetes, or heart stents. He denies smoking, tobacco use, and recent alcohol u se. It should be noted that the patient is not alert and oriented to month or season, and reports that it is "March" when asked what month it is. He is alert and oriented to name//location. Patient is tachycardic at 111 BPM at time of admission; SpO2 92% on RA. ED course: Morphine sulfate 4 mg IV x 2 Zofran 4 mg IV ROS: Patient endorses intermittent/sharp pain radiating down the left leg with movements. Patient denies fever, chills, night-sweats, dizziness, lightheadedness, MAIER, chest pain, chest palpitations, SOB, cough, abdominal pain, N/V/D, change in urinary/bowel habits, burning with urination, blood in the urine/stool, or numbness/tingling in the left leg. Spoke on the phone with patient's daughter (Judy) regarding admission and possible surgery. Daughter reports that the patient lives with his son, and was not using a walker at the time of the fall. She reports that he did take all of his regular morning medications, and takes dicloxacillin for chronic suppression therapy of a MRSA infection in his left knee since 2010. She confirms that he has no history of stroke, WI, heart stents, or DM. When asked if he has had any recent changes in cognitive baseline, she reports that sometimes he has difficulty hearing when he does not have his hearing aids in. Patient reports that she is his power of collections attorney, along with his 2 other sons (Vince and Chava). She confirms that he wishes to be a full code in the event of an emergency. Allergies Allergy/AdvReac Type Severity Reaction Status Date / Time house dust Allergy Mild breathing Verified 08/08/23 17:18 problems cephalexin [From Keflex] AdvReac Mild Rash Verified 08/08/23 17:18 Home Medications Medication Instructions Recorded Confirmed Type multivitamin-ferrous 1 tab PO QAM 06/04/18 08/08/23 History fumarate-folic acid 18 mg-400 mcg tablet (Centrum) metoprolol succinate 25 mg 25 mg PO QAM #90 tabs 10/31/22 08/08/23 Rx tablet,extended release 24 hr rivaroxaban 20 mg tablet (Xarelto) 20 mg PO QAM #90 tabs 10/31/22 08/08/23 Rx dicloxacillin 500 mg capsule 500 mg PO BID Pyogenic bacterial 03/24/23 08/08/23 Rx arthritis of knee #180 caps albuterol sulfate 90 mcg/actuation 2 puff inhalation Q6H PRN 06/29/23 08/08/23 Rx aerosol inhaler shortness of breath or wheezing #8.5 grams furosemide 20 mg tablet 20 mg PO DAILY #90 tabs 07/07/23 08/08/23 Rx potassium chloride 20 mEq 20 meq PO QAM 08/08/23 08/08/23 History tablet,extended release Past Med/Surg History Problem List History of MRSA infection Altered mental status Atrial fibrillation with RVR Closed intertrochanteric fracture of left femur History of septic arthritis Chronic heart failure with preserved ejection fraction (HFpEF) Primary hypertension Allergy-induced asthma NO INHALER Hyperlipidemia (Acute) Hyperglycemia (Acute) Heme positive stool (Acute) Erectile dysfunction (Acute) Allergic rhinitis (Acute) Atrial fibrillation Mitral regurgitation Borderline abnormal thyroid function test Anemia Sensorineural hearing loss of both ears Cerumen impaction Edema of right lower extremity Chronic diastolic CHF (congestive heart failure) (Acute) Liver cirrhosis Otomycosis of left ear Medical History Arthritis Atrial fibrillation FOLLOWED BY DR. BUSH Hx of congestive heart failure REASON FOR LASIX Pyogenic bacterial arthritis of knee TAKES ANX CHRONIC TX Surgical History History of left cataract surgery H/O knee surgery I&D LEFT KNEE History of tooth extraction History of fracture of leg Right leg - compound leg fracture>HARDWARE INTACT S/P surgical removal of pilonidal cyst Hx of tonsillectomy Family History Mother Stroke Father Aneurysm Emphysema lung Other No family history of adverse response to anesthesia No family history of bleeding disorder Denies family history of Ovarian cancer Prostate cancer Hearing loss Heart disease Myocardial infarction Breast cancer Lung cancer Colorectal cancer Cancer Hypertension Asthma Social History Smoking Status: Never smoker Second Hand Exposure: No; Do You Dip or Chew Tobacco: No; Hx Alcohol Use: No Hx Substance Use: No Preferred Language: Pashto Communication Ability: Effective Visual Impairment: No Limitations Hearing Ability: Use of Hearing Aid Overhead Line Worker Required: No Beliefs That Will Affect Care: None marital status: / Current Living Situation: Family Current Living Situation Comment: SON current occupational status: retired 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, 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 How many Children do You have: 3 Feels Safe at Home: Yes Childhood Exposure to Second-Hand Smoke: No Diet: regular caffeine: Yes during the past year weight has: remained stable Dental Care, Regularly: No Physical Activity Frequency: Daily Seatbelt Use: always Sunscreen Use: No Assistive Devices: Denture - Upper, Denture - Lower, Glasses and Hearing Aid - Bilateral Review of Systems Review of Systems: See HPI above Physical Exam Physical Exam: General: no acute distress; non-toxic appearing; well-nourished; cooperative; SpO2 92% on RA HEENT: normocephalic, atraumatic; no scleral icterus; PERRLA; dry mucus mem brane; vision intact; hard of hearing Neck: supple; no lymphadenopathy; trachea midline Skin: warm, dry without signs of tenting; no cyanosis; no rashes, bruising, lesions, or erythema noted CV: chest wall NTP; irregularly irregular rhythm tachycardic around 111 bpm; S1/S2 normal; no murmurs/rubs/gallops; pulses intact and symmetric at radial, DP, and PT Lungs: no acute respiratory distress; symmetrical chest wall expansion; clear breath sounds across all lung samuels w/o adventitious sounds; no wheezing ABD: Soft, NTP; BS present; no rebound/guarding; no distention MSK: no tics or fasciculations; no edema noted in the LEs b/l, nonerythematous; left hip is TTP; swelling of the left hip, but no signs no signs of bruising or active bleeding; patient demonstrates ability to wiggle toes, plantarflex, and dorsiflex the left foot Neuro: Slow, paused speech; A&Ox2; oriented to name//location, not oriented to month/season (response that it is March, and that it is Fall); he is aware that he fell; he reports diminished sensation in the left lower extremity when compared to the right Results & Data Results & Data Vital Signs (Past 12 Hours) Vital Signs Temp Pulse Pulse Resp BP BP Pulse Ox 08/08/23 17:00 104 H 15 98/75 L 08/08/23 16:32 108 H 22 109/90 08/08/23 15:00 94 H 19 122/95 96 08/08/23 14:32 36.4 C L 108 H 24 125/87 95 O2 Del Method 08/08/23 17:00 Room Air 08/08/23 16:32 Room Air 08/08/23 15:00 Room Air 08/08/23 14:32 Room Air Laboratory Results Abnormal lab results 08/08/23 08/08/23 Range/Units 14:55 Unknown RBC 4.46 L (4.70-6.10) M/uL Hgb 13.3 L (14.0-18.0) g/dl MCHC 31.4 L (32.0-36.0) g/dL RDW Std Deviation 49.4 H (36.4-46.3) fL Neut # (Auto) 8.09 H (1.40-6.50) K/uL Lymph # (Auto) 1.03 L (1.20-3.40) K/uL Hubbard # (Auto) 1.29 H (0.11-0.59) K/uL PT 13.7 H (9.0-12.0) Seconds INR 1.3 H (0.9-1.1) BUN/Creatinine Ratio 23.4 H (10-20) Glucose 105 H (70-99(Fasting)) mg/dl AST 52 H (13-39) U/L Alkaline Phosphatase 218 H (34-104) U/L Ur Leukocyte Esterase Trace H (Negative) Diagnostic Findings Chest X-Ray 08/08/23 14:48 XR chest 1V portable CLINICAL HISTORY: hip pain/preop TECHNIQUE: Single frontal radiograph of the chest was obtained. Comparison: Comparison is made to chest radiograph 07/05/2023 FINDINGS: No lines and tubes are seen. Aortic valvular prosthesis is seen. Prominence and cephalization of the vasculature is seen. No evidence of pleural effusion or pneumothorax. IMPRESSION: Cardiomegaly and mild pulmonary edema. ACT 112: Negative or not required by law. Electronically signed by: Maurice Middleton M.D. 08/08/2023 4:22 PM Femur X-Ray 08/08/23 14:48 XR femur LT 2V routine, XR pelvis 1-2V routine CLINICAL HISTORY: HIP FRACTURE TECHNIQUE: 2 radiographic views of the left femur and one view of the pelvis were obtained. Comparison: Comparison is made to CT pelvis 04/16/2020 FINDINGS: Comminuted fracture of the proximal femur at the level of the greater trochanter. The visualized portion of the hip and knee joints are unremarkable. Soft tissue swelling is seen. IMPRESSION: Comminuted fracture of the proximal left femur with associated soft tissue swelling. ACT 112: Negative or not required by law. Electronically signed by: Maurice Middleton M.D. 08/08/2023 4:24 PM Pelvis X-Ray 08/08/23 14:48 XR femur LT 2V routine, XR pelvis 1-2V routine CLINICAL HISTORY: HIP FRACTURE TECHNIQUE: 2 radiographic views of the left femur and one view of the pelvis were obtained. Comparison: Comparison is made to CT pelvis 04/16/2020 FINDINGS: Comminuted fracture of the proximal femur at the level of the greater trochanter. The visualized portion of the hip and knee joints are unremarkable. Soft tissue swelling is seen. IMPRESSION: Comminuted fracture of the proximal left femur with associated soft tissue swelling. ACT 112: Negative or not required by law. Electronically signed by: Maurice Middleton M.D. 08/08/2023 4:24 PM ECG Additional Comments: ECG revealed atrial fibrillation with RVR at 103 bpm; QTc 440 Code Status & VTE Plan Code Status Full code VTE Prophylaxis Plan VTE Prophylaxis will be ordered: No Supervising Physician Co-Signing Physician Notes patient was seen and examined , reports some pain in left hip, denies any other symptoms, denies head trauma left femur XR is consistent with fx, suspect hematoma, patient ox Xarelto for permanent Afib, denies CVA, CAD , no signs of CHF obtain CT head CT left leg, consult card consult ortho, possible sx tomorrow keep NPO agree with above assessment and plan PG Care Time/CCT Total # of Minutes Spent Total Time Spent with Patient: Total time spent is greater than 50% in coordination of care (as documented) at patient's floor/unit and/or counseling patient: Coding [place] [address] INT INP/OBS CARE 375MIN Patient Type Established History Comprehensive Exam Comprehensive Medical Decision Making High Complexity Diagnoses Closed displaced intertrochanteric fracture of left femur, initial encounter S72.142A Encounter type: initial encounter Fracture alignment: displaced Altered mental status R41.82 Chronic heart failure with preserved ejection fraction (HFpEF) I50.32 Atrial fibrillation with RVR I48.91 History of MRSA infection Z86.14 (1) Closed intertrochanteric fracture of left femur Encounter type: initial encounter Fracture alignment: displaced Qualified Code(s): S72.142A - Displaced intertrochanteric fracture of left femur, initial encounter for closed fracture
--- NOTE | 2023-08-08 18:41 | CT Scan Report ---
LEFT HIP CT CT DOSE: HISTORY: Fall on xarelto; left femur fx + swelling TECHNIQUE: Multiaxial CT images of the left were performed and reformatted in the sagittal and alcocer l plane without the use of contrast. A dose lowering technique was utilized adhering to the principl es of DOM. COMPARISON: Pelvis 08/08/2023. FINDINGS: Redemonstration of the comminuted and displaced intertrochanteric fracture within the proxi mal left femur. The lesser trochanter fragment demonstrates up to 1.8 cm of medial displacement. No d islocation. The visualized pelvic bones appear intact. Mild surrounding soft tissue swelling/hemorrha ge at the fracture site. No focal hematoma identified. There is a Garcia catheter within the bladder l umen. There is a moderate sized left inguinal hernia containing a segment of the sigmoid colon. IMPRESSION: 1. Redemonstration of a comminuted and displaced intertrochanteric fracture of the proximal left femu r. No dislocation. 2. Mild surrounding soft tissue swelling/hemorrhage at the fracture site. No focal hematoma identifie d. 3. Moderate left inguinal hernia containing a segment of the sigmoid colon. ACT 112: Negative or not required by law. Electronically signed by: Jhonatan Lala M.D. 08/08/2023 6:39 PM
--- NOTE | 2023-08-08 18:53 | CT Scan Report ---
HEAD CT NONCONTRAST CT DOSE: 2307.78 mGy.cm HISTORY: Fall on xarelto TECHNIQUE: Multiaxial CT images of the head were performed without the use of intravenous contrast. A utomated exposure control was utilized for this study. A dose lowering technique was utilized adheri ng to the principles of ALARA. Comparison: None. Findings: The paranasal sinuses and mastoid air cells are clear. The calvarium and skull base are int act. There is no mass, hematoma, midline shift, acute infarct. White matter hypodensity is nonspecifi c but suggestive of microvascular ischemic change. The ventricles and sulci demonstrate mild age-rela loly involutional changes. Motion artifact Impression: Motion artifact. No definite acute intracranial abnormality. ACT 112: Negative or not required by law. Electronically signed by: Jhonatan Lala M.D. 08/08/2023 6:50 PM
[2023-08-08 19:17] LABS: Magnesium 1.8 mg/dl (1.7-2.4)
[2023-08-08] MEDS: DICLOXACILLIN SODIUM 250 MG CAP PO ONE (19:22)
[2023-08-08] MEDS: METOPROLOL TARTRATE 1 MG/ML VIAL IV STA (19:25)
[2023-08-08] MEDS ORDERED: ONDANSETRON INJ 2 MG/ML 2 ML VIAL IV PRN (20:48)
[2023-08-08] MEDS: ACETAMINOPHEN 1,000 MG/100 ML VIAL IV SCH (21:10)
[2023-08-09] MEDS: TRANEXAMIC ACID / 0.7% NACL 1,000 MG/100 ML BAG IV ONE (00:41)
[2023-08-09 06:41] LABS: Basophils # (auto) 0.05 K/uL (0.00-0.20); Basophils % (auto) 0.6 %; Eosinophils # (auto) 0.12 K/uL (0.00-0.50); Eosinophils % (auto) 1.3 %; Hemoglobin 12.3 g/dl (14.0-18.0); Immature Granulocytes # (auto) 0.05 K/uL (0.01-0.20); Immature Granulocytes % (auto) 0.6 %; Lymphocytes # (auto) 1.07 K/uL (1.20-3.40); Lymphocytes % (auto) 11.9 %; Mean Corpuscular Hemoglobin 29.4 pg (25.0-34.0); Mean Corpuscular Hgb Conc 31.5 g/dL (32.0-36.0); Mean Corpuscular Volume 93.3 fL (80.0-100.0); Mean Platelet Volume 11.3 fL (9.4-12.4); Monocytes # (auto) 1.31 K/uL (0.11-0.59); Monocytes % (auto) 14.6 %; Neutrophils # (auto) 6.38 K/uL (1.40-6.50); Platelet Count 242 K/uL (130-400); RDW Coefficient of Variation 14.4 % (11.5-14.5); RDW Standard Deviation 49.1 fL (36.4-46.3); Red Blood Count 4.18 M/uL (4.70-6.10); White Blood Count 8.98 K/ul (4.8-10.8)
[2023-08-09 07:01] LABS: BUN Creatinine Ratio 23.9 (10-20); Calcium 8.3 mg/dl (8.6-10.3); Creatinine Clr Calc Pharmacy 78.2 ml/min; Est GFR (African American) 91.4 ml/min; Est GFR (Non-African American) 78.8 ml/min; Potassium 4.3 mmol/L (3.5-5.1)
[2023-08-09 07:18] LABS: INR 1.2 (0.9-1.1); Prothrombin Time 12.8 Seconds (9.0-12.0)
--- NOTE | 2023-08-09 07:21 | Hospitalist Progress Note ---
Date of Service August 09, 2023 Assessment & Plan (1) Closed intertrochanteric fracture of left femur: Plan: Ground-level fall on 08/07; no LOC; Left femur x-ray revealed comminuted fracture of the proximal femur Orthopedic surgery Plan is to go to the OR with Dr. Sarmiento on 08/08 Revised cardiac risk index: 1 point for history of chronic heart failure preserved ejection fraction compensated on admission Multimodal pain regimen: Acetaminophen 1000 g IV q8h scheduled Dilaudid IV q4h as needed for breakthrough pain Is on Xarelto for atrial fib, currently on hold (2) Altered mental status: Plan: A&O x 2; unclear of baseline, did recieve morphine for pain relief, mildly abnormal urine, send culture Head CT without acute findings (3) Chronic heart failure with preserved ejection fraction (HFpEF): Plan: Last echo on 07/27/2023 revealed LVEF at 60 to 65%; moderate tricuspid regurgitation Hold Lasix prior to surgery (4) Atrial fibrillation with RVR: Plan: A-fib with RVR on arrival, typically on metoprolol succinate 25mg daily Lopressor 5mg IV q6h as needed for HR>140bpm- with good results (5) History of MRSA infection: Plan: 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 Continue dicloxacillin 500mg BID for chronic suppression therapy Plan Full code VTE PPx: Hold Xarelto prior to surgery Admission and Anticipated Discharge Date Admission Date: August 08, 2023 Subjective Patient is no complaints pain is controlled Cardiovascular status is optimized Plan for surgical repair of trochanteric fracture on 08/26/2023 Physical Exam Physical Exam: Card exam is regular lungs are clear Neurological status of his left leg is intact distally Results & Data Results & Data Vital Signs (Past 12 Hours) Vital Signs Temp Pulse Pulse Resp BP BP Pulse Ox 08/09/23 02:42 98.4 F 103 H 20 102/78 93 08/08/23 23:00 91 H 08/08/23 22:49 98.4 F 105 H 22 108/83 97 08/08/23 21:36 97.9 F 121 H 20 125/97 97 08/08/23 20:48 08/08/23 20:48 97 08/08/23 20:48 08/08/23 20:16 110 H 18 115/81 95 08/08/23 20:15 93 H 18 115/81 95 08/08/23 20:12 100 H 19 93 08/08/23 20:00 115/81 08/08/23 20:00 115/81 08/08/23 20:00 102 H 24 95 08/08/23 19:57 93 H 113/93 08/08/23 19:45 119 H 27 H 96 08/08/23 19:36 112 H 20 95 08/08/23 19:25 126 H 120/101 H 08/08/23 19:21 123 H 22 94 Pulse Ox O2 Del Method O2 Del Method O2 Flow Rate O2 Flow Rate 08/09/23 02:42 Room Air 08/08/23 23:00 08/08/23 22:49 Nasal Cannula 2 08/08/23 21:36 Nasal Cannula 2 08/08/23 20:48 Nasal Cannula 2 08/08/23 20:48 Nasal Cannula 4 08/08/23 20:48 97 Nasal Cannula 4 08/08/23 20:16 Nasal Cannula 2 08/08/23 20:15 Nasal Cannula 2 08/08/23 20:12 08/08/23 20:00 08/08/23 20:00 08/08/23 20:00 08/08/23 19:57 08/08/23 19:45 08/08/23 19:36 08/08/23 19:25 08/08/23 19:21 Laboratory Results Reviewed CBCmild acute blood loss anemia is noted preoperatively due to fracture bleeding possible dilution from hydration Reviewed chemistry PG Care Time/CCT Total # of Minutes Spent Total Time Spent with Patient: Total time spent is greater than 50% in coordination of care (as documented) at patient's floor/unit and/or counseling patient: Coding Level of Care Code 81491 SUB INP/OBS CARE 3/50MIN Diagnoses Closed displaced intertrochanteric fracture of left femur, initial encounter S72.142A Encounter type: initial encounter Fracture alignment: displaced Altered mental status R41.82 Chronic heart failure with preserved ejection fraction (HFpEF) I50.32 Atrial fibrillation with RVR I48.91 History of MRSA infection Z86.14 (1) Closed intertrochanteric fracture of left femur Encounter type: initial encounter Fracture alignment: displaced Qualified Code(s): S72.142A - Displaced intertrochanteric fracture of left femur, initial encounter for closed fracture
[2023-08-09] MEDS: DICLOXACILLIN SODIUM 250 MG CAP PO SCH (08:08)
[2023-08-09] MEDS: METOPROLOL SUCC 25MG EXT REL TAB PO SCH (08:09)
--- NOTE | 2023-08-09 10:07 | Cardiology Consultation ---
Date of Consultation August 09, 2023 Assessment & Plan (1) Chronic diastolic CHF (congestive heart failure): -The patient is well compensated at this time. -Would continue his daily Lasix, potassium, and metoprolol succinate. -Avoid aggressive intravenous hydration. (2) Atrial fibrillation: -Has been well-controlled on a rate control and long-term anticoagulation strategy. (3) Preop cardiovascular exam: -Acceptable cardiac risk for orthopedic surgery without further testing. History of Present Illness Attending Physician: Chris Coleman MD History of Present Illness Mr. Florez is a 78-year-old male admitted yesterday after a mechanical fall resulted in a closed intertrochanteric fracture of the left femur. He will require surgery later today. This consultation was ordered to assess his cardiac risk. Of note, the patient is well-known to me from the outpatient setting. The patient carries a history of chronic diastolic CHF which has remained well compensated. He did have an echocardiogram performed on July 26 which noted normal left systolic function with mild mitral vegetation. This was unchanged from study performed in November 2018. He also carries a history of permanent atrial fibrillation that has been well- controlled with the rate control and long-term anticoagulation strategy. He is able to carry out activities of daily life without exertional chest pain or limiting dyspnea. He does ambulate with the assistance of a walker. Currently, patient is resting comfortably in bed and without complaints. Allergies Allergy/AdvReac Type Severity Reaction Status Date / Time house dust Allergy Mild breathing Verified 08/08/23 17:18 problems cephalexin [From Keflex] AdvReac Mild Rash Verified 08/08/23 17:18 Home Medications Medication Instructions Recorded Confirmed Type multivitamin-ferrous 1 tab PO QAM 06/04/18 08/08/23 History fumarate-folic acid 18 mg-400 mcg tablet (Centrum) metoprolol succinate 25 mg 25 mg PO QAM #90 tabs 10/31/22 08/08/23 Rx tablet,extended release 24 hr rivaroxaban 20 mg tablet (Xarelto) 20 mg PO QAM #90 tabs 10/31/22 08/08/23 Rx dicloxacillin 500 mg capsule 500 mg PO BID Pyogenic bacterial 03/24/23 08/08/23 Rx arthritis of knee #180 caps albuterol sulfate 90 mcg/actuation 2 puff inhalation Q6H PRN 06/29/23 08/08/23 Rx aerosol inhaler shortness of breath or wheezing #8.5 grams furosemide 20 mg tablet 20 mg PO DAILY #90 tabs 07/07/23 08/08/23 Rx potassium chloride 20 mEq 20 meq PO QAM 08/08/23 08/08/23 History tablet,extended release Patient History Medical History Arthritis Atrial fibrillation FOLLOWED BY DR. BUSH Hx of congestive heart failure REASON FOR LASIX Pyogenic bacterial arthritis of knee TAKES ANX CHRONIC TX Surgical History History of left cataract surgery H/O knee surgery I&D LEFT KNEE History of tooth extraction History of fracture of leg Right leg - compound leg fracture>HARDWARE INTACT S/P surgical removal of pilonidal cyst Hx of tonsillectomy Family History Mother Stroke Father Aneurysm Emphysema lung Other No family history of adverse response to anesthesia No family history of bleeding disorder Denies family history of Ovarian cancer Prostate cancer Hearing loss Heart disease Myocardial infarction Breast cancer Lung cancer Colorectal cancer Cancer Hypertension Asthma Social History Smoking Status: Never smoker Second Hand Exposure: No; Do You Dip or Chew Tobacco: No; Hx Alcohol Use: No Hx Substance Use: No Preferred Language: Romanian Communication Ability: Effective Visual Impairment: No Limitations Hearing Ability: Use of Hearing Aid Cruise Staff Member Required: No Beliefs That Will Affect Care: None marital status: / Current Living Situation: Family Current Living Situation Comment: patient lives with son current occupational status: retired 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 HEENT exam is negative. Neck is supple with full carotid upstrokes. There are no carotid bruits. No JVD. There is no thyromegaly. Cardiovascular exam reveals an irregularly irregular rhythm with distant heart sounds. No obvious murmurs. No S3. Lungs are clear without rales, rhonchi, or wheezes. Abdomen is soft and nontender without bruits. Extremities reveal intact radial artery and posterior tibial pulses bilaterally. There is trace pretibial edema. Results & Data Vital Signs (Past 12 Hours) Vital Signs Temp Pulse Pulse Resp BP Pulse Ox O2 Del Method 08/09/23 08:00 36.9 C 101 H 18 104/74 96 Room Air 08/09/23 02:42 36.9 C 103 H 20 102/78 93 Room Air 08/08/23 23:00 91 H 08/08/23 22:49 36.9 C 105 H 22 108/83 97 Nasal Cannula O2 Flow Rate 08/09/23 08:00 08/09/23 02:42 08/08/23 23:00 08/08/23 22:49 2 PG Care Time/CCT Total # of Minutes Spent Total Time Spent with Patient: Total time spent is greater than 50% in coordination of care (as documented) at patient's floor/unit and/or counseling patient: Coding Level of Care Code 99670 INT INP/OBS CARE 3/75MIN Diagnoses Chronic diastolic CHF (congestive heart failure) I50.32 Longstanding persistent atrial fibrillation I48.11 Atrial fibrillation type: longstanding persistent Preop cardiovascular exam Z01.810 (2) Atrial fibrillation Atrial fibrillation type: longstanding persistent Qualified Code(s): I48.11 - Longstanding persistent atrial fibrillation
[2023-08-09] MEDS ORDERED: fentaNYL citrate PF 100 MCG/2 ML VIAL ONE ×2 (14:16→17:14)
--- NOTE | 2023-08-09 14:25 | Anesthesiology Consultation ---
Date of Service August 09, 2023 Assessment & Plan (1) Encounter for pre-operative examination: Chart Review Chart Review: Acceptable Risk for Surgery (xarelto yesterday morning) History Surgery Operation Date: 08/09/23 07:00 Proposed Procedures p Jovan Day TFN - Baldemar Sarmiento MD Height/Weight Height: 5 ft 8 in Weight: 109.7 kg Allergies Allergy/AdvReac Type Severity Reaction Status Date / Time house dust Allergy Mild breathing Verified 08/08/23 17:18 problems cephalexin [From Keflex] AdvReac Mild Rash Verified 08/08/23 17:18 Medications Home Medications Medication Instructions Recorded Confirmed Last Taken multivitamin-ferrous 1 tab PO QAM 06/04/18 08/08/23 08/08/23 fumarate-folic acid 18 mg-400 mcg tablet (Centrum) metoprolol succinate 25 mg 25 mg PO QAM #90 tabs 10/31/22 08/08/23 08/08/23 tablet,extended release 24 hr rivaroxaban 20 mg tablet (Xarelto) 20 mg PO QAM #90 tabs 10/31/22 08/08/23 08/08/23 dicloxacillin 500 mg capsule 500 mg PO BID Pyogenic bacterial 03/24/23 08/08/23 08/08/23 arthritis of knee #180 caps albuterol sulfate 90 mcg/actuation 2 puff inhalation Q6H PRN 06/29/23 08/08/23 Unknown aerosol inhaler shortness of breath or wheezing #8.5 grams furosemide 20 mg tablet 20 mg PO DAILY #90 tabs 07/07/23 08/08/23 08/08/23 potassium chloride 20 mEq 20 meq PO QAM 08/08/23 08/08/23 08/08/23 tablet,extended release Active Medications Generic Name Dose Route Start Last Admin Trade Name Freq PRN Reason Stop Dose Admin Dicloxacillin Sodium 500 mg 08/09/23 09:00 08/09/23 08:08 Dicloxacillin Sodium 250 Mg Cap PO 09/08/23 08:59 500 mg BID MICHAEL Administration Acetaminophen 1,000 mg in 100 mls @ 400 mls/hr 08/08/23 21:00 08/09/23 13:33 Ofirmev IV 08/11/23 20:59 Infused Q8H MICHAEL Infusion Metoprolol Succinate 25 mg 08/09/23 09:00 08/09/23 08:09 Metoprolol Succ 25mg Ext Rel Tab PO 09/08/23 08:59 25 mg QAM MICHAEL Administration NPO Date Last Intake of Fluids: 08/08/23 Time Last Intake of Fluids: 00:00 Date Last Intake of Solids: 08/08/23 Time Last Intake of Solids: 21:00 Past Medical History Medical History (Updated 08/09/23 @ 14:21 by Willie Alicea MD) Chronic heart failure with preserved ejection fraction (HFpEF) Allergy-induced asthma NO INHALER Arthritis Atrial fibrillation FOLLOWED BY DR. BUSH Hx of congestive heart failure REASON FOR LASIX Pyogenic bacterial arthritis of knee TAKES ANX CHRONIC TX Past Family History Family History Mother Stroke Father Aneurysm Emphysema lung Other No family history of adverse response to anesthesia No family history of bleeding disorder Denies family history of Ovarian cancer Prostate cancer Hearing loss Heart disease Myocardial infarction Breast cancer Lung cancer Colorectal cancer Cancer Hypertension Asthma Past Surgical History Surgical History History of left cataract surgery H/O knee surgery I&D LEFT KNEE History of tooth extraction History of fracture of leg Right leg - compound leg fracture>HARDWARE INTACT S/P surgical removal of pilonidal cyst Hx of tonsillectomy Social History Smoking Status: Never smoker tobacco type: smokeless tobacco Do You Dip or Chew Tobacco: No Hx Alcohol Use: No Alcohol type: beer Hx Substance Use: No substance use type: does not use Physical Exam Vital Signs Last Vital Signs Temp 36.6 C 08/09/23 11:46 Pulse 101 H 08/09/23 13:40 Resp 18 08/09/23 11:46 BP 112/81 08/09/23 11:46 Pulse Ox 92 08/09/23 11:46 O2 Del Method Room Air 08/09/23 11:46 O2 Flow Rate 2 08/08/23 22:49 Testing Laboratory Results 08/09/23 05:47 08/09/23 05:47 PT 12.8 Seconds (9.0-12.0) H 08/09/23 05:47 INR 1.2 (0.9-1.1) H 08/09/23 05:47 APTT 31 Seconds (21-31) 08/08/23 14:55 Urine Color Yellow 08/08/23 Unknown Urine Appearance Clear (Clear) 08/08/23 Unknown Urine pH 6.5 (4.5-7.5) 08/08/23 Unknown Ur Specific [place] 1.018 (1.000-1.030) 08/08/23 Unknown Urine Protein Negative (Negative) 08/08/23 Unknown Urine Glucose (UA) Negative (Negative) 08/08/23 Unknown Urine Ketones Negative (Negative) 08/08/23 Unknown Urine Nitrite Negative (Negative) 08/08/23 Unknown Ur Leukocyte Esterase Trace (Negative) H 08/08/23 Unknown Urine WBC (Auto) 0-5 /hpf (0-5) 08/08/23 Unknown Urine RBC (Auto) 0-2 /hpf (0-2) 08/08/23 Unknown U Hyaline Cast (Auto) 0-2 /lpf (0-2) 08/08/23 Unknown U Epithel Cells (Auto) 0-2 /hpf (0-2) 08/08/23 Unknown Urine Bacteria (Auto) None Seen (None Seen) 08/08/23 Unknown Blood Type O Positive 08/08/23 19:20 Antibody Screen NEGATIVE 08/08/23 19:20 Electrocardiogram Date: 08/08/23 Findings: + AFIB @ (103) Echocardiogram Date: 07/27/23 EF: 60-65% LV Function: normal Valvular Disease: + MR (mild) mod TR
[2023-08-09] MEDS ORDERED: PROPOFOL IV EMULSION 10 MG/ML 20 ML VIAL IV ONE (15:30)
[2023-08-09] MEDS ORDERED: PHENYLEPHRINE 100MCG/ML 10ML SYR IV ONE (15:30)
[2023-08-09] MEDS ORDERED: ROCURONIUM BROMIDE 10 MG/ML 5 ML VIAL IV ONE ×2 (15:30→17:50)
[2023-08-09] MEDS ORDERED: LIDOCAINE 2% 2 ML VIAL/AMP(20MG/ML) INFIL ONE (15:30)
[2023-08-09] MEDS ORDERED: ONDANSETRON INJ 2 MG/ML 2 ML VIAL ONE (15:30)
--- NOTE | 2023-08-09 15:35 | History & Physical Bridge Note ---
Date of Service August 09, 2023 History & Physical Bridge Note I have examined the patient, reviewed the History & Physical and in the interval since the performance of the History & Physical I have noted the following changes of clinical significance: no changes noted. I discussed the plan for surgery with the patient and his power of united states attorney and daughter, Judy. We discussed this at 730 this morning by phone with his daughter. I reviewed the indications, alternatives, and techniques for surgical stabilization of peritrochanteric fractures of the hip. I stated that the risks include but are not limited to infection, nerve or vessel injury, arthrofibrosis of the hip, persistent hip pain, need for repeat or revision surgeries, nonunion, malunion, symptomatic implants, failure of the implants, pain syndromes, blood clots and complication related anesthesia. We did review the potential outcomes from hip fractures in general with a goal of returning to his baseline ambulatory activity. Recovery may take 6 months to 1 year. He and his daughter asked appropriate questions, demonstrated a reasonable understanding, and elected proceed with surgery as soon as medically safe to do so. Informed consent was documented on the floor and witnessed by the his nurse. In the interval since admission, he has been evaluated and cleared for surgery by cardiology. Xarelto has been held. TXA was infused overnight.
[2023-08-09] MEDS ORDERED: ePHEDrine sulfate 50 MG/ML AMP IV PRN (15:45)
[2023-08-09] MEDS ORDERED: HYDROmorphone INJ 2 MG/ML SYR/VIAL IV PRN (15:45)
[2023-08-09] MEDS ORDERED: ONDANSETRON INJ 2 MG/ML 2 ML VIAL IV PRN (15:45)
[2023-08-09] MEDS ORDERED: PROMETHAZINE HCL 6.25 MG in SODIUM CHLORIDE 0.9% 50 ML IV PRN (15:45)
[2023-08-09] MEDS ORDERED: ATROPINE SULFATE 0.1 MG/ML 10ML SYR IV PRN (15:45)
[2023-08-09] MEDS ORDERED: SUGAMMADEX SODIUM 200 MG/2 ML VIAL IV ONE (16:31)
[2023-08-09] MEDS: ceFAZolin 2000MG 2,000 MG/15 ML SYR IV ONE (16:43)
[2023-08-09] MEDS: TRANEXAMIC ACID / 0.7% NACL 1000MG/100ML BAG IV ONE ×2 (16:48→21:25)
[2023-08-09] MEDS ORDERED: DEXAMETHASONE SOD INJ 4 MG/ML VIAL ONE (16:49)
[2023-08-09] MEDS ORDERED: ceFAZolin 330 MG/ML 1 GM VIAL ONE ×2 (16:49)
[2023-08-09] MEDS: BUPIVACAINE/EPINEPHRINE 0.5% MPF 1:200,000 30 ML VIAL ONE ×2 (17:54→17:55)
[2023-08-09] MEDS: CLINDAMYCIN 900 MG/D5W 50 ML BAG IV ONE (17:55)
[2023-08-09] MEDS: TRANEXAMIC ACID 100 MG/ML 10 ML VIAL IV ONE (18:03)
--- NOTE | 2023-08-09 18:29 | Post Operative Brief Note ---
PG Immediate Post Op with CF Date of Surgery August 09, 2023 Pre & Post Diagnosis Operation Date: 08/09/23 07:00 Pre-Op Diagnosis: Left intertrochanteric femur fracture Post-Op Diagnosis: Left intertrochanteric femur fracture I identified the patient and participated in the time-out.: Yes Procedure Operation Date: 08/09/23 07:00 Actual Procedures p Left Intertrochanteric Femur fracture closed reduction and internal fixation with Long Trochanteric Fixation Nail (Left) - Baldemar Sarmiento MD Surgeon Baldemar Sarmiento MD Lime Supervisor none Estimated Blood Loss 150 Findings Consistent with Post-Op Diagnosis Drains Garcia Catheter
[2023-08-09] MEDS: fentaNYL citrate PF 100 MCG/2 ML VIAL IV PRN (18:56)
--- NOTE | 2023-08-09 19:26 | Anesthesiology Progress Note ---
Date of Service August 09, 2023 Anesthesia Post Procedure Vital Signs Vital Signs: Temp Pulse Pulse Resp BP BP BP 08/09/23 19:05 126 H 23 100/71 08/09/23 18:55 135 H 14 113/89 08/09/23 18:45 114 H 17 121/86 08/09/23 18:35 121 H 24 136/90 08/09/23 18:27 36.4 C L 113 H 23 122/90 08/09/23 15:25 37.2 C 105 H 24 104/76 08/09/23 13:40 101 H 08/09/23 11:46 36.6 C 104 H 18 112/81 08/09/23 10:32 95 H 08/09/23 10:32 08/09/23 08:00 36.9 C 101 H 18 104/74 08/09/23 02:42 36.9 C 103 H 20 102/78 08/08/23 23:00 91 H 08/08/23 22:49 36.9 C 105 H 22 108/83 08/08/23 21:36 36.6 C 121 H 20 125/97 08/08/23 20:48 08/08/23 20:48 08/08/23 20:48 08/08/23 20:16 110 H 18 115/81 08/08/23 20:15 93 H 18 115/81 08/08/23 20:12 100 H 19 08/08/23 20:00 115/81 08/08/23 20:00 115/81 08/08/23 20:00 102 H 24 08/08/23 19:57 93 H 113/93 08/08/23 19:45 119 H 27 H 08/08/23 19:36 112 H 20 Pulse Ox Pulse Ox O2 Del Method O2 Del Method O2 Flow Rate O2 Flow Rate 08/09/23 19:05 95 Nasal Cannula 2 08/09/23 18:55 95 Nasal Cannula 2 08/09/23 18:45 97 Nasal Cannula 3 08/09/23 18:35 99 Nasal Cannula 4 08/09/23 18:27 100 Oxymask 4 08/09/23 15:25 98 Room Air 08/09/23 13:40 08/09/23 11:46 92 Room Air 08/09/23 10:32 08/09/23 10:32 Room Air 08/09/23 08:00 96 Room Air 08/09/23 02:42 93 Room Air 08/08/23 23:00 08/08/23 22:49 97 Nasal Cannula 2 08/08/23 21:36 97 Nasal Cannula 2 08/08/23 20:48 Nasal Cannula 2 08/08/23 20:48 97 Nasal Cannula 4 08/08/23 20:48 97 Nasal Cannula 4 08/08/23 20:16 95 Nasal Cannula 2 08/08/23 20:15 95 Nasal Cannula 2 08/08/23 20:12 93 08/08/23 20:00 08/08/23 20:00 08/08/23 20:00 95 08/08/23 19:57 08/08/23 19:45 96 08/08/23 19:36 95 Pain Intensity Left Hip: Pain Intensity: 2 Transfer of Care Handoff Completed per policy Notes Mental Status: alert / awake / arousable Patient Amnestic to Procedure: Yes Nausea / Vomiting: adequately controlled Pain: adequately controlled Airway Patency, RR, SpO2: stable & adequate BP & HR: stable & adequate Hydration State: stable & adequate Anesthetic Complications: no major complications apparent
--- NOTE | 2023-08-09 19:26 | Fluoroscopy Report ---
FL femur LT 2V CLINICAL HISTORY: LEFT LONG TFN COMPARISON STUDY: Left femur radiographs August 08, 2023. FLUOROSCOPY TIME: 1.45 minutes. Ka, r: 17.809 mGy FLUOROSCOPIC IMAGES: 4 FINDINGS: Fluoroscopy was provided during open reduction and internal fixation of the intertrochanter ic fracture of the left femur with trochanteric nail. Fracture alignment has significantly improved a nd appears near anatomic. The hardware is intact. No unexpected radiopaque foreign bodies. IMPRESSION: Fluoroscopy provided during open reduction and internal fixation of the intertrochanteri c fracture of the left femur. ACT 112: Negative or not required by law. Electronically signed by: Jersey Puri M.D. 08/09/2023 7:24 PM
[2023-08-09] MEDS ORDERED: COUGH DROP (SUGAR FREE) LOZ 24 LOZ/1 BOX BUCCAL PRN (19:57)
--- NOTE | 2023-08-09 20:10 | Operative Report ---
PG Post Operative Report Pre & Post Diagnosis Operation Date: 08/09/23 07:00 Pre-Op Diagnosis: Left intertrochanteric femur fracture Post-Op Diagnosis: Left intertrochanteric femur fracture I identified the patient and participated in the time-out.: Yes Procedure Operation Date: 08/09/23 07:00 Actual Procedures p Left Intertrochanteric Femur fracture closed reduction and internal fixation with Long Trochanteric Fixation Nail (Left) - Baldemar Sarmiento MD Surgeon Baldemar Sarmiento MD Editorial Assistant none Estimated Blood Loss 150 Findings Consistent with Post-Op Diagnosis Comminuted peritrochanteric femur fracture with subtrochanteric extension. All [employer]ynthe[employer] implants: 11 mm/130 degree titanium cannulated trochanteric fixation nail of 420 mm length. 11.0 mm titanium helical blade of 110 mm length. Distal interlock screw measuring 52 mm. Specimens none Anesthesia Type General Complications none Disposition Accompanied Patient To Recovery: No Disposition: Surgical ICU Indications 78-year-old male admitted after fall resulting in a peritrochanteric femur fracture. Denying previous hip pain or injuries. I recommended surgical stabilization of this fracture. After reviewing risks, benefits, and alternatives with the patient and his power of research attorney/daughter, they were interested in proceeding with surgery as I had described. Informed consent was obtained and discussed with his daughter. Description of Procedure On the day of surgery should be was greeted in the preoperative holding area and the informed consent was reviewed and confirmed. The surgical site was then identified by the patient and signed by myself. The patient was taken to the operating placed by the OR table and anesthesia was induced. The patient is then positioned on the fracture table. All malissa prominences were well padded. The operative foot was placed in the fracture boot with abundant padding. The well leg was secured. We then positioned the lower extremities in a scissor fashion with a non-op leg flexed down to allow visualization with fluoroscopy which was confirmed before we prepped and draped. Surgical timeout was called and verified by all present. Antibiotics were infused, and equipment was available and functional. The procedure was initiated with a closed reduction maneuvers. Gentle in-line traction pulled the fracture out to length. The limb was then internally rotated to reduce the proximal femur. Flexion and adduction were used to adjust the reduction and allow access to the greater trochanter. We had adequate reduction prior to prepping and draping. The leg was then prepped and draped in usual sterile fashion. Surgical timeout was reconfirmed. We initiated the surgical internal fixation portion with finding the start point with the tip of the greater trochanter. Fluoroscopic guidance was used and a small poke hole was established. The start point was confirmed on fluoroscopy in AP and lateral planes and the pin was advanced using a mallet. An incision was made about the pin to allow access for the reamers. The pin was then advanced past the lesser trochanter, and its position was confirmed using AP and lateral fluoroscopy. Using the protective sleeve, the opening reamer was advanced under power with fluoroscopic guidance over the guidepin. The reduction wire was then advanced down the distal femur to the level of the superior pole of the patella. Measurement was taken from the tip of the trochanter down to the end of the guidewire, and the nail length was selected. We then reamed with a 12.5 mm diameter for an 11 mm nail. An 11 mm nail was loaded onto the jig and advanced manually down the canal, while ensuring maintenance of the reduction on fluoroscopy. We then tapped it down into place until we achieve the good position for our cephalo-medullary screw. The cannula was placed on the jig to allow positioning of the cephalo-medullary screw. The skin incision was made in the appropriate spot. The jig cannulas were then placed against the lateral cortex. The cephalo-medullary screw guidepin was advanced towards the femoral head. The center-center position was confirmed on fluoroscopy in AP and lateral planes. The length of the screw was measured off the guide. The cephalomedullary screw was then opened on the back table and prepared on the screwdriver. The lateral cortical opening drill, followed by the triple drill reamer for the screw was advanced under fluoroscopic guidance. The screw was advanced over the guidepin to appropriate position and locked in rotation. The traction was taken off. Fluoroscopy confirmed maintenance of reduction and adequate position of the implant. The compression sleeve was then advanced against the lateral femur to improve the trochanteric-shaft reduction and compress the intertrochanteric region fracture. Attention was then directed distally to perform the interlock screws in using pe rfect yuhaaviatam technique. 1 interlock screw was placed with a 5 mm diameter. The length was measured using a depth gauge, with fluoroscopic guidance. This completed the fixation. Fluoroscopy was used in both AP and lateral planes to evaluate the entirety of the fracture and implant. Reduction and implant positions were acceptable. The wounds were then thoroughly irrigated with bulb syringe and normal saline. The deep fascial layer was approximated with 0 Vicryl suture. The dermal layer was approximated using 2-0 Vicryl suture. The final skin closure was completed with flavia. Wounds were dressed with sterile Xeroform, sterile gauze, and Ioban over ABDs. The patient tolerated procedure well, awoke from anesthesia without complication, was extubated in the operating room, and transferred to the PACU in stable condition. Disposition: The patient be weightbearing as tolerated. I recommended DVT prophylaxis consisting of returning to his previous Xarelto dose. 24 hours of antibiotic prophylaxis should be continued -Ancef was tolerated without rash in the operating room and will be continued. I attest to the content of the Intraoperative Record and any orders documented therein. Any exceptions are noted below.
[2023-08-09] MEDS: METOPROLOL TARTRATE 1 MG/ML VIAL IV PRN (20:20)
[2023-08-09] MEDS: HYDROmorphone INJ 1 MG/ML SYRINGE IV PRN (20:22)
--- NOTE | 2023-08-10 00:16 | Electrocardiogram Report ---
Test Reason : Blood Pressure : / mmHG Vent. Rate : 103 BPM Atrial Rate : 000 BPM P-R Int : 000 ms QRS Dur : 080 ms QT Int : 336 ms P-R-T Axes : 000 002 -26 degrees QTc Int : 440 ms Atrial fibrillation with rapid ventricular response Abnormal ECG When compared with ECG of 09-FEB-2022 10:30, Nonspecific T wave abnormality now evident in Inferior leads Confirmed by Jaxson Bourne ([id number]) on 08/10/2023 12:16:36 AM Referred By: REFERRED SELF Confirmed By:Jaxson Bourne
[2023-08-10] MEDS: ceFAZolin 2000MG 2,000 MG/15 ML SYR IV SCH (00:43)
--- NOTE | 2023-08-10 07:23 | XRay Report ---
XR femur LT 2V routine CLINICAL HISTORY: Post-Operative implant position TECHNIQUE: 2 radiographic views of the left femur were obtained. Comparison: Comparison is made to pelvis radiograph 08/08/2023 FINDINGS: Interval placement of trochanteric and femoral nail. The visualized portion of the hip and knee joint s are unremarkable. The soft tissues are unremarkable. IMPRESSION: Femoral fixation hardware is in satisfactory placement. ACT 112: Negative or not required by law. Electronically signed by: Maurice Middleton M.D. 08/10/2023 7:22 AM
[2023-08-10 07:47] LABS: Basophils # (auto) 0.06 K/uL (0.00-0.20); Basophils % (auto) 0.5 %; Eosinophils # (auto) 0.14 K/uL (0.00-0.50); Eosinophils % (auto) 1.2 %; Hematocrit (blood only) 35.1 % (42.0-52.0); Hemoglobin 11.1 g/dl (14.0-18.0); Immature Granulocytes # (auto) 0.06 K/uL (0.01-0.20); Immature Granulocytes % (auto) 0.5 %; Lymphocytes # (auto) 1.21 K/uL (1.20-3.40); Mean Corpuscular Hemoglobin 29.8 pg (25.0-34.0); Mean Corpuscular Hgb Conc 31.6 g/dL (32.0-36.0); Mean Corpuscular Volume 94.4 fL (80.0-100.0); Monocytes # (auto) 1.49 K/uL (0.11-0.59); Monocytes % (auto) 12.3 %; Neutrophils # (auto) 9.19 K/uL (1.40-6.50); Neutrophils % (auto) 75.5 %; Platelet Count 186 K/uL (130-400); RDW Coefficient of Variation 14.2 % (11.5-14.5); Red Blood Count 3.72 M/uL (4.70-6.10); White Blood Count 12.15 K/ul (4.8-10.8)
[2023-08-10 08:01] LABS: BUN Creatinine Ratio 24.2 (10-20); Calcium 8.3 mg/dl (8.6-10.3); Creatinine Clr Calc Pharmacy 69.4 ml/min; Est GFR (African American) 83.6 ml/min; Est GFR (Non-African American) 72.1 ml/min; Potassium 4.5 mmol/L (3.5-5.1)
--- NOTE | 2023-08-10 08:28 | Hospitalist Progress Note ---
Date of Service August 10, 2023 Assessment & Plan (1) Closed intertrochanteric fracture of left femur: Plan: Ground-level fall on 08/07; no LOC; Left femur x-ray revealed comminuted fracture of the proximal femur OR with Dr. Sarmiento on 08/08 left long trochanteric fixation nail Postop acute blood loss anemia however recommendations restart Xarelto for post procedure VTE prophylaxis by orthopedics Multimodal pain regimen: Acetaminophen 1000 g IV q8h scheduled Dilaudid IV q4h as needed for breakthrough pain Is re starting on Xarelto for atrial fib, and VTE prevention (2) Altered mental status: Plan: A&O x 2; unclear of baseline, did recieve morphine for pain relief, mildly abnormal urine, send culture Head CT without acute findings Seroquel 25 at bedtime 1 dose to prevent sundowning on the evening of 08/09 (3) Chronic heart failure with preserved ejection fraction (HFpEF): Plan: Last echo on 07/27/2023 revealed LVEF at 60 to 65%; moderate tricuspid regurgitation Hold Lasix prior to surgery, given anemia volume loss is expected continue to hold Lasix and evaluate for volume status (4) Atrial fibrillation with RVR: Plan: A-fib with RVR on arrival, typically on metoprolol succinate 25mg daily Lopressor 5mg IV q6h as needed for HR>140bpm- with good results (5) History of MRSA infection: Plan: 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 Continue dicloxacillin 500mg BID for chronic suppression therapy Plan Full code VTE PPx: Resume Xarelto 20 on 08/11/2023 Admission and Anticipated Discharge Date Admission Date: August 08, 2023 Subjective Patient had episode of sundowning overnight requiring restraints This morning he did receive pain medication is slightly somnolent but is redirectable and call Does complain of pain at the operative site Physical Exam Physical Exam: Card exam is rate controlled and irregular lungs are clear Neurological status of his left leg is intact distally Results & Data Results & Data Vital Signs (Past 12 Hours) Vital Signs Temp Pulse Pulse Resp BP BP Pulse Ox 08/10/23 03:16 98.4 F 101 H 18 117/81 97 08/10/23 00:57 110 H 16 114/78 97 08/10/23 00:47 122 H 08/09/23 22:37 98.2 F 98 H 18 177/93 H 96 08/09/23 21:54 109 H 08/09/23 21:29 105 H 18 08/09/23 20:35 108 H 119/86 O2 Del Method O2 Flow Rate 08/10/23 03:16 Nasal Cannula 2.0 08/10/23 00:57 Nasal Cannula 2 08/10/23 00:47 08/09/23 22:37 Nasal Cannula 2.0 08/09/23 21:54 08/09/23 21:29 08/09/23 20:35 Laboratory Results reviewed CBC Reviewed chemistry PG Care Time/CCT Total # of Minutes Spent Total Time Spent with Patient: Total time spent is greater than 50% in coordination of care (as documented) at patient's floor/unit and/or counseling patient: Coding Level of Care Code 13820 SUB INP/OBS CARE 3/50MIN Diagnoses Closed displaced intertrochanteric fracture of left femur, initial encounter S72.142A Encounter type: initial encounter Fracture alignment: displaced Altered mental status R41.82 Chronic heart failure with preserved ejection fraction (HFpEF) I50.32 Atrial fibrillation with RVR I48.91 History of MRSA infection Z86.14 (1) Closed intertrochanteric fracture of left femur Encounter type: initial encounter Fracture alignment: displaced Qualified Code(s): S72.142A - Displaced intertrochanteric fracture of left femur, initial encounter for closed fracture
--- NOTE | 2023-08-10 12:28 | Orthopedic Progress Note ---
Date of Service August 10, 2023 Assessment & Plan (1) Closed intertrochanteric fracture of left femur: Plan POD 1 status post long trochanteric fixation nail for a left peritrochanteric femur fracture with subtrochanteric extension. -WBAT and ROMAT to the left lower extremity -Postop dressings to remain until least postoperative day 2. Reinforce if necessary. -PT/OT consults -Finish 24 hours of antibiotic perioperative prophylaxis today. Continue his chronic oral antibiotic suppression regimen. -Discontinue Garcia as soon as medically reasonable. -Pain management per the primary team -Expect continued drop in hematocrit with mainor around 72 hours postop. -May restart Xarelto today, which will be his VTE PPx -Will continue to follow. Please [place] text me directly for any questions regarding his orthopedic care Disposition: Per primary team evaluation and PT/OT recommendations. Orthopedic discharge instructions completed Subjective Evaluated patient and spoke with nursing. Patient reports his hip feels "ouchy." Nurse reports that he was able to stand with PT. Had some pain and required Dilaudid. Is calm and more oriented this morning. Review of Systems All systems reviewed & are unremarkable except as noted in HPI & below. Physical Exam Left hip: Postoperative dressing is clean and dry and intact. Thigh c ompartments are soft and nontender. No knee effusion. Was able to squeeze his quad. Positive DF/PF/EHL. Sensation seem to be intact though exam limited by patient understanding and participation. Inconsistent answers on sensation on both lower extremities. Full motor to both. Palpable DP pulses. Constitutional WD/WN, vitals as above no acute distress and not intoxicated appearing Respiratory normal respiratory effort; no labored breathing Cardiovascular Extremities: normal capillary refill Results & Data Results & Data Laboratory Results H & H 08/08/23 08/09/23 08/10/23 Range/Units 14:55 05:47 06:47 Hgb 13.3 L 12.3 L 11.1 L (14.0-18.0) g/dl Hct 42.3 39.0 L 35.1 L (42.0-52.0) % Coagulation 08/08/23 08/09/23 Range/Units 14:55 05:47 INR 1.3 H 1.2 H (0.9-1.1) Diagnostic Findings . PG Care Time/CCT Total # of Minutes Spent Total Time Spent with Patient: Total time spent is greater than 50% in coordination of care (as documented) at patient's floor/unit and/or counseling patient: Coding Level of Care Code 63647 Post Operative Follow-Up Diagnoses Closed displaced intertrochanteric fracture of left femur, initial encounter S72.142A Encounter type: initial encounter Fracture alignment: displaced (1) Closed intertrochanteric fracture of left femur Encounter type: initial encounter Fracture alignment: displaced Qualified Code(s): S72.142A - Displaced intertrochanteric fracture of left femur, initial encounter for closed fracture
[2023-08-10] MEDS: RIVAROXABAN 20 MG TAB PO SCH (16:16)
[2023-08-10] MEDS: QUEtiapine FUMARATE 25 MG TABLET PO ONE (20:24)
[2023-08-11 06:22] LABS: Basophils # (auto) 0.06 K/uL (0.00-0.20); Basophils % (auto) 0.7 %; Eosinophils # (auto) 0.35 K/uL (0.00-0.50); Hematocrit (blood only) 30.4 % (42.0-52.0); Hemoglobin 9.7 g/dl (14.0-18.0); Immature Granulocytes # (auto) 0.04 K/uL (0.01-0.20); Immature Granulocytes % (auto) 0.5 %; Lymphocytes # (auto) 0.52 K/uL (1.20-3.40); Mean Corpuscular Hemoglobin 29.6 pg (25.0-34.0); Mean Corpuscular Hgb Conc 31.9 g/dL (32.0-36.0); Mean Corpuscular Volume 92.7 fL (80.0-100.0); Mean Platelet Volume 12.1 fL (9.4-12.4); Monocytes # (auto) 1.19 K/uL (0.11-0.59); Monocytes % (auto) 13.7 %; Neutrophils % (auto) 75.1 %; Nucleated RBC # (auto) 0.02 K/uL (0.00-0.12); Nucleated RBC % (auto) 0.2 %; Platelet Count 179 K/uL (130-400); RDW Coefficient of Variation 14.3 % (11.5-14.5); RDW Standard Deviation 48.4 fL (36.4-46.3); Red Blood Count 3.28 M/uL (4.70-6.10); White Blood Count 8.66 K/ul (4.8-10.8)
[2023-08-11 06:39] LABS: BUN Creatinine Ratio 23.1 (10-20); Calcium 7.8 mg/dl (8.6-10.3); Creatinine Clr Calc Pharmacy 59.7 ml/min; Est GFR (African American) 68.3 ml/min; Est GFR (Non-African American) 58.9 ml/min; Potassium 4.3 mmol/L (3.5-5.1)
--- NOTE | 2023-08-11 07:14 | Orthopedic Progress Note ---
Date of Service August 11, 2023 Assessment & Plan (1) Closed intertrochanteric fracture of left femur: POD #2 from left hip TFN. Pain seems controlled. Continue PT/OT wbat DVT prophylaxis: loly's, scd's and xarelto Dressing can be changed today. Will discuss with Dr. Torsten Yu .78 year old patient POD #2 from left TFN. Appears comfortable. Pain controlled. States that he has pain when he's up and moving around. Review of Systems All systems reviewed & are unremarkable except as noted in HPI & below. Physical Exam .Alert, NAD. Left leg: Dressing intact. Compartments soft, no knee effusion. Able to dorsiflex and plantarflex. NVI. HGB 9.7 today Results & Data Results & Data Laboratory Results . Diagnostic Findings . PG Care Time/CCT Total # of Minutes Spent Total Time Spent with Patient: Total time spent is greater than 50% in coordination of care (as documented) at patient's floor/unit and/or counseling patient: Coding Level of Care Code 79064 Post Operative Follow-Up Diagnoses Closed displaced intertrochanteric fracture of left femur, initial encounter S72.142A Encounter type: initial encounter Fracture alignment: displaced (1) Closed intertrochanteric fracture of left femur Encounter type: initial encounter Fracture alignment: displaced Qualified Code(s): S72.142A - Displaced intertrochanteric fracture of left femur, initial encounter for closed fracture
--- NOTE | 2023-08-11 08:46 | Hospitalist Progress Note ---
Date of Service August 11, 2023 Assessment & Plan (1) Closed intertrochanteric fracture of left femur: (2) Altered mental status: (3) Chronic heart failure with preserved ejection fraction (HFpEF): (4) Atrial fibrillation with RVR: (5) History of MRSA infection: (6) Postoperative anemia due to acute blood loss: Plan #Closed intertrochanteric fracture of left femur: - Ground-level fall on 08/07; no LOC; Left femur x-ray revealed comminuted fracture of the proximal femur - OR with Dr. Sarmiento on 08/08 left long trochanteric fixation nail - Multimodal pain regimen: Acetaminophen 1000 g IV q8h scheduled Dilaudid IV q4h as needed for breakthrough pain - Is re starting on Xarelto for atrial fib, and VTE prevention - PT / OT recs rehab #Postop acute blood loss anemia - Ortho recs restarting xarelto - monitor Hgb closely #Altered mental status: - per daughter A&O x3 at baseline - mildly abnormal urine, send culture - Head CT without acute findings - Seroquel 25 at bedtime 1 dose to prevent sundowning on the evening of 08/09 #Chronic heart failure with preserved ejection fraction (HFpEF): - Last echo on 07/27/2023 revealed LVEF at 60 to 65%; moderate tricuspid regurgitation - Hold Lasix prior to surgery, given anemia, volume loss is expected continue to hold Lasix and evaluate for volume status #Atrial fibrillation with RVR: - A-fib with RVR on arrival, typically on metoprolol succinate 25mg daily - Lopressor 5mg IV q6h as needed for HR>140bpm- with good results #History of MRSA infection: - 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 - Continue dicloxacillin 500mg BID for chronic suppression therapy #Code status: Full code VTE PPx: Resume Xarelto 20 on 08/11/2023 Dispo: pending clinical improvement, CM on board for placement 08/10: spoke with pt's daughter Judy Admission and Anticipated Discharge Date Admission Date: August 08, 2023 Subjective Pt is more confused today Not able to offer any complaints Review of Systems Review of Systems: Comprehensive ROS reviewed Physical Exam 2 Physical Exam: Gen: no acute distress, sitting in bed comfortably HEENT: normocephalic / atraumatic, anicteric, dry mucous membranes CVS: s1s2 nl, mildly tachycardic, no M/R/G Lungs: CTAB Abd: + bowel sounds, soft, nontender, nondistended, no rigidity / guarding / rebound Ext: trace b/l edema, left hip surgery dressing c/d/i Neuro: awake but confused, Ox0 Psych: non anxious Results & Data Results & Data Vital Signs (Past 12 Hours) Vital Signs Temp Pulse Pulse Resp BP BP Pulse Ox 08/11/23 07:59 37.3 C 112 H 20 97/71 L 98 08/11/23 03:30 36.8 C 105 H 18 105/77 99 08/10/23 22:39 36.8 C 110 H 18 103/65 08/10/23 21:35 118 H O2 Del Method O2 Flow Rate 08/11/23 07:59 Nasal Cannula 2 08/11/23 03:30 Room Air 08/10/23 22:39 08/10/23 21:35 PG Care Time/CCT Total # of Minutes Spent Total Time Spent with Patient: Total time spent is greater than 50% in coordination of care (as documented) at patient's floor/unit and/or counseling patient: Coding Level of Care Code 74336 SUB INP/OBS CARE 2/35MIN Diagnoses Closed displaced intertrochanteric fracture of left femur, initial encounter S72.142A Encounter type: initial encounter Fracture alignment: displaced Altered mental status R41.82 Chronic heart failure with preserved ejection fraction (HFpEF) I50.32 Atrial fibrillation with RVR I48.91 History of MRSA infection Z86.14 Postoperative anemia due to acute blood loss D62 (1) Closed intertrochanteric fracture of left femur Encounter type: initial encounter Fracture alignment: displaced Qualified Code(s): S72.142A - Displaced intertrochanteric fracture of left femur, initial encounter for closed fracture
[2023-08-11] MEDS: HYDROmorphone INJ 0.5 MG/0.5 ML SYR IV PRN (17:39)
[2023-08-11] MEDS: POLYETHYLENE (MIRALAX) 17 GM PACK PO SCH (23:30)
[2023-08-12 06:55] LABS: Hematocrit (blood only) 31.9 % (42.0-52.0); Mean Corpuscular Hemoglobin 29.8 pg (25.0-34.0); Mean Corpuscular Hgb Conc 31.3 g/dL (32.0-36.0); Mean Corpuscular Volume 94.9 fL (80.0-100.0); Mean Platelet Volume 11.9 fL (9.4-12.4); Platelet Count 208 K/uL (130-400); RDW Coefficient of Variation 14.1 % (11.5-14.5); Red Blood Count 3.36 M/uL (4.70-6.10); White Blood Count 7.84 K/ul (4.8-10.8)
[2023-08-12 07:13] LABS: BUN Creatinine Ratio 23.7 (10-20); Calcium 8.1 mg/dl (8.6-10.3); Est GFR (African American) 85.7 ml/min; Est GFR (Non-African American) 73.9 ml/min; Magnesium 1.9 mg/dl (1.7-2.4); Phosphorus 2.9 mg/dl (2.5-4.9)
--- NOTE | 2023-08-12 08:01 | Orthopedic Progress Note ---
Date of Service August 12, 2023 Assessment & Plan (1) Closed intertrochanteric fracture of left femur: POD #3 from left hip TFN. Making expected progress. Postop anemia stabilized. No change in POC. Continue PT/OT wbat DVT prophylaxis: loly's, scd's and xarelto Dressing changes as needed Dispo: per primary team. Please tigertext me with any ortho questions. Will follow peripherally Subjective Seen today with his nurse at the bedside. Reports that he seems comfortable when at rest. He is vocal about pain when he is touched or moved. Is able to sit up at the edge of the bed with therapy yesterday. Appetite low. Positive bowel movements. Review of Systems All systems reviewed & are unremarkable except as noted in HPI & below. Physical Exam LLE: Wounds are well-approximated without erythema or drainage. The dressing was changed today with the help of nursing. Positive DF/PF/EHL. 2+ DP pulse Constitutional WD/WN, vitals as above no acute distress and not intoxicated appearing Respiratory normal respiratory effort; no labored breathing Cardiovascular Extremities: normal capillary refill Results & Data Results & Data Laboratory Results Laboratory Tests 08/09/23 08/10/23 08/11/23 05:47 06:47 05:45 WBC Hct 39.0 L 35.1 L 30.4 L 08/12/23 06:24 WBC 7.84 Hct 31.9 L Diagnostic Findings . PG Care Time/CCT Total # of Minutes Spent Total Time Spent with Patient: Total time spent is greater than 50% in coordination of care (as documented) at patient's floor/unit and/or counseling patient: Coding Level of Care Code 41707 Post Operative Follow-Up Diagnoses Closed displaced intertrochanteric fracture of left femur, initial encounter S72.142A Encounter type: initial encounter Fracture alignment: displaced (1) Closed intertrochanteric fracture of left femur Encounter type: initial encounter Fracture alignment: displaced Qualified Code(s): S72.142A - Displaced intertrochanteric fracture of left femur, initial encounter for closed fracture
--- NOTE | 2023-08-12 12:30 | Hospitalist Progress Note ---
Date of Service August 12, 2023 Assessment & Plan (1) Closed intertrochanteric fracture of left femur: (2) Altered mental status: (3) Chronic heart failure with preserved ejection fraction (HFpEF): (4) Atrial fibrillation with RVR: (5) History of MRSA infection: (6) Postoperative anemia due to acute blood loss: (7) Vitamin D deficiency: Plan #Closed intertrochanteric fracture of left femur: - Ground-level fall on 08/07; no LOC; Left femur x-ray revealed comminuted fracture of the proximal femur - OR with Dr. Sarmiento on 08/08 left long trochanteric fixation nail - Multimodal pain regimen: Acetaminophen 1000 g IV q8h scheduled Dilaudid IV q4h as needed for breakthrough pain - Is re starting on Xarelto for atrial fib, and VTE prevention - PT / OT recs rehab - CM working on getting pt to [facility], but this requires [id number] call on Monday08/14/23 (Peer-peer #: [phone] option 5.) #Postop acute blood loss anemia - Ortho recs restarting xarelto - monitor Hgb closely #Altered mental status: - per daughter A&O x3 at baseline - mildly abnormal urine, send culture - Head CT without acute findings - Seroquel 25 at bedtime 1 dose to prevent ing on the evening of 08/09 #Chronic heart failure with preserved ejection fraction (HFpEF): - Last echo on 07/27/2023 revealed LVEF at 60 to 65%; moderate tricuspid regurgitation - Hold Lasix prior to surgery, given anemia, volume loss is expected continue to hold Lasix and evaluate for volume status #Atrial fibrillation with RVR: - A-fib with RVR on arrival, typically on metoprolol succinate 25mg daily - Lopressor 5mg IV q6h as needed for HR>140bpm- with good results #History of MRSA infection: - 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 - Continue dicloxacillin 500mg BID for chronic suppression therapy #Vitamin D deficiency - start PO supplementation #Code status: Full code VTE PPx: Resume Xarelto 20 on 08/11/2023 Dispo: pending clinical improvement, CM on board for placement 08/10, 08/11: spoke with pt's daughter Judy Admission and Anticipated Discharge Date Admission Date: August 08, 2023 Subjective Mentation is better in the morning Not able to offer any complaints, though with nursing discussion, pt does have severe pain with movement Review of Systems Review of Systems: Comprehensive ROS reviewed Physical Exam Physical Exam: Gen: no acute distress, sitting in bed comfortably HEENT: normocephalic / atraumatic, anicteric, dry mucous membranes CVS: s1s2 nl, mildly tachycardic, no M/R/G Lungs: CTAB Abd: + bowel sounds, soft, nontender, nondistended, no rigidity / guarding / rebound Ext: trace b/l edema, left hip surgery dressing c/d/i Neuro: awake but confused, Ox1 (knew he was in the hospital, but didn't know which one, and didn't know time) Psych: non anxious Results & Data Results & Data Vital Signs (Past 12 Hours) Vital Signs Temp Pulse Resp BP BP Pulse Ox O2 Del Method 08/12/23 11:38 36.8 C 120 H 20 108/77 91 Room Air 08/12/23 08:00 Room Air 08/12/23 07:43 37.1 C 114 H 18 101/70 91 Room Air 08/12/23 02:25 36.9 C 105 H 18 116/89 93 Room Air Laboratory Results Abnormal lab results 08/12/23 Range/Units 06:24 RBC 3.36 L (4.70-6.10) M/uL Hgb 10.0 L (14.0-18.0) g/dl Hct 31.9 L (42.0-52.0) % MCHC 31.3 L (32.0-36.0) g/dL RDW Std Deviation 49.0 H (36.4-46.3) fL BUN/Creatinine Ratio 23.7 H (10-20) Calcium 8.1 L (8.6-10.3) mg/dl 25-OH Vitamin D Total 18.9 L (30-100) ng/ml PG Care Time/CCT Total # of Minutes Spent Total Time Spent with Patient: Total time spent is greater than 50% in coordination of care (as documented) at patient's floor/unit and/or counseling patient: Coding Level of Care Code 98902 SUB INP/OBS CARE 3/50MIN Diagnoses Closed displaced intertrochanteric fracture of left femur, initial encounter S72.142A Encounter type: initial encounter Fracture alignment: displaced Altered mental status R41.82 Chronic heart failure with preserved ejection fraction (HFpEF) I50.32 Atrial fibrillation with RVR I48.91 History of MRSA infection Z86.14 Postoperative anemia due to acute blood loss D62 Vitamin D deficiency E55.9 (1) Closed intertrochanteric fracture of left femur Encounter type: initial encounter Fracture alignment: displaced Qualified Code(s): S72.142A - Displaced intertrochanteric fracture of left femur, initial encounter for closed fracture
[2023-08-12] MEDS: ACETAMINOPHEN 325 MG TAB PO SCH (12:52)
[2023-08-12] MEDS: oxyCODONE HCL IR 5 MG TAB (IMMEDIATE RELEASE) PO PRN (12:52)
[2023-08-12] MEDS: HYDROmorphone INJ 0.5 MG/0.5 ML SYR IV PRN (14:00)
[2023-08-12] MEDS: OLANZapine 10 MG/2.1 ML SDV IM STA (15:25)
[2023-08-12] MEDS: QUEtiapine FUMARATE 25 MG TABLET PO SCH (17:38)
[2023-08-12] MEDS ORDERED: QUEtiapine FUMARATE 25 MG TABLET PO SCH ×2 (21:00)
--- NOTE | 2023-08-13 07:32 | Hospitalist Progress Note ---
Date of Service August 13, 2023 Assessment & Plan (1) Closed intertrochanteric fracture of left femur: (2) Altered mental status: (3) Chronic heart failure with preserved ejection fraction (HFpEF): (4) Atrial fibrillation with RVR: (5) History of MRSA infection: (6) Postoperative anemia due to acute blood loss: (7) Vitamin D deficiency: Plan #Closed intertrochanteric fracture of left femur: - Ground-level fall on 08/07; no LOC; Left femur x-ray revealed comminuted fracture of the proximal femur - OR with Dr. Sarmiento on 08/08 left long trochanteric fixation nail - Multimodal pain regimen: Acetaminophen PO scheduled Dilaudid IV q4h as needed for breakthrough pain - Is re starting on Xarelto for atrial fib, and VTE prevention - PT / OT recs rehab - CM working on getting pt to [facility], but this requires [id number] call on Monday08/14/23 (Peer-peer #: [phone] option 5.) #Postop acute blood loss anemia - Ortho recs restarting xarelto - monitor Hgb closely #Delirium - per daughter A&O x3 at baseline - mildly abnormal urine, send culture - Head CT without acute findings - required Seroquel 25 at bedtime 1 dose to prevent ing on the evening of 08/09 - on 08/11: pt required Zyprexa IM x1, f/b seroquel 12.5mg x2. Will start Seroquel 25mg nightly standing along with seroquel 12.5mg daily prn - 08/12 required escalating dose to control behavior, thus psych consulted #Chronic heart failure with preserved ejection fraction (HFpEF): - Last echo on 07/27/2023 revealed LVEF at 60 to 65%; moderate tricuspid regurgitation - Hold Lasix prior to surgery, given anemia, volume loss is expected continue to hold Lasix and evaluate for volume status - IVF initiated given dehydration , monitor for volume overload #Atrial fibrillation with RVR: - HR increases during agitation - A-fib with RVR on arrival, typically on metoprolol succinate 25mg daily - Lopressor 5mg IV q6h as needed for HR>140bpm- with good results #History of MRSA infection: - 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 Review of Systems Review of Systems: Comprehensive ROS reviewed Physical Exam Physical Exam: Gen: no acute distress, sitting in bed comfortably HEENT: normocephalic / atraumatic, anicteric, dry mucous membranes CVS: s1s2 nl, mildly tachycardic, no M/R/G Lungs: CTAB Abd: + bowel sounds, soft, nontender, nondistended, no rigidity / guarding / rebound Ext: trace b/l edema, left hip surgery dressing c/d/i Neuro: awake but confused, Ox1 (knew he was in the hospital, but didn't know which one, and didn't know time) Psych: non anxious Results & Data Results & Data Vital Signs (Past 12 Hours) Vital Signs Temp Pulse Pulse Resp BP Pulse Ox O2 Del Method 08/13/23 04:03 37 C 97 H 18 103/78 97 Nasal Cannula 08/12/23 23:47 101 H 08/12/23 20:00 Nasal Cannula O2 Flow Rate 08/13/23 04:03 2 08/12/23 23:47 08/12/23 20:00 2 Laboratory Results Abnormal lab results 08/12/23 Range/Units 06:24 25-OH Vitamin D Total 18.9 L (30-100) ng/ml PG Care Time/CCT Total # of Minutes Spent Total Time Spent with Patient: Total time spent is greater than 50% in coordination of care (as documented) at patient's floor/unit and/or counseling patient: Coding Level of Care Code 64487 SUB INP/OBS CARE 3/50MIN Diagnoses Closed displaced intertrochanteric fracture of left femur, initial encounter S72.142A Encounter type: initial encounter Fracture alignment: displaced Altered mental status R41.82 Chronic heart failure with preserved ejection fraction (HFpEF) I50.32 Atrial fibrillation with RVR I48.91 History of MRSA infection Z86.14 Postoperative anemia due to acute blood loss D62 Vitamin D deficiency E55.9 (1) Closed intertrochanteric fracture of left femur Encounter type: initial encounter Fracture alignment: displaced Qualified Code(s): S72.142A - Displaced intertrochanteric fracture of left femur, initial encounter for closed fracture
[2023-08-13 08:52] LABS: Hematocrit (blood only) 29.4 % (42.0-52.0); Hemoglobin 9.3 g/dl (14.0-18.0); Mean Corpuscular Hemoglobin 29.8 pg (25.0-34.0); Mean Corpuscular Hgb Conc 31.6 g/dL (32.0-36.0); Mean Corpuscular Volume 94.2 fL (80.0-100.0); Mean Platelet Volume 12.1 fL (9.4-12.4); Nucleated RBC # (auto) 0.02 K/uL (0.00-0.12); Nucleated RBC % (auto) 0.3 %; Platelet Count 223 K/uL (130-400); RDW Coefficient of Variation 14.1 % (11.5-14.5); RDW Standard Deviation 47.8 fL (36.4-46.3); Red Blood Count 3.12 M/uL (4.70-6.10); White Blood Count 7.95 K/ul (4.8-10.8)
[2023-08-13 09:09] LABS: BUN Creatinine Ratio 26.4 (10-20); Creatinine Clr Calc Pharmacy 73.8 ml/min; Est GFR (African American) 92.6 ml/min; Est GFR (Non-African American) 79.9 ml/min; Magnesium 1.9 mg/dl (1.7-2.4); Phosphorus 3.3 mg/dl (2.5-4.9)
[2023-08-13] MEDS: CHOLECALCIFEROL 25 MCG (1000 UNITS) TAB PO SCH (09:35)
[2023-08-13] MEDS: LACTATED RINGER'S 1,000 ML IV SCH (10:54)
[2023-08-13] MEDS: QUEtiapine FUMARATE 25 MG TABLET PO PRN (14:31)
[2023-08-13] MEDS: OLANZapine 10 MG/2.1 ML SDV IM PRN (15:57)
[2023-08-13] MEDS: LACTATED RINGER'S 500 ML IV ONE (17:21)
[2023-08-13] MEDS: OLANZapine 10 MG/2.1 ML SDV IM ONE (17:57)
[2023-08-13] MEDS: QUEtiapine FUMARATE 25 MG TABLET PO SCH (20:34)
[2023-08-14 07:35] LABS: Hematocrit (blood only) 29.1 % (42.0-52.0); Hemoglobin 9.3 g/dl (14.0-18.0); Mean Corpuscular Hemoglobin 29.6 pg (25.0-34.0); Mean Corpuscular Volume 92.7 fL (80.0-100.0); Mean Platelet Volume 11.7 fL (9.4-12.4); Platelet Count 231 K/uL (130-400); RDW Coefficient of Variation 13.9 % (11.5-14.5); RDW Standard Deviation 46.9 fL (36.4-46.3); Red Blood Count 3.14 M/uL (4.70-6.10); White Blood Count 8.24 K/ul (4.8-10.8)
[2023-08-14 07:51] LABS: BUN Creatinine Ratio 23.5 (10-20); Creatinine Clr Calc Pharmacy 85.2 ml/min; Est GFR (Non-African American) 84.5 ml/min; Magnesium 1.8 mg/dl (1.7-2.4); Phosphorus 3.2 mg/dl (2.5-4.9)
--- NOTE | 2023-08-14 08:54 | XRay Report ---
XR chest 1V portable HISTORY: 78 years-old Male Increasing rhonchi, eval fluid status acute shortness of breath COMPARISON: 08/08/2023, 04/01/2020 TECHNIQUE: AP view of the chest FINDINGS: Cardiac silhouette is enlarged. Pulmonary vascular congestion. Asymmetric right hilar prominence/righ t perihilar opacity again noted. No pneumothorax or pleural effusion. Degenerative changes of the guru ulders and spine. IMPRESSION: 1. Asymmetric right hilar prominence/right perihilar opacity is noted. Correlation with follow-up [facility] st CT recommended in order to exclude an underlying lesion or lymphadenopathy. 2. Cardiomegaly with pulmonary vascular congestion. ACT 112: Negative or not required by law. The above report was generated using voice recognition software. It may contain grammatical, syntax o r spelling errors. Electronically signed by: Simon Wolf M.D. 08/14/2023 8:52 AM
[2023-08-14] MEDS: QUEtiapine FUMARATE 25 MG TABLET PO SCH (09:13)
--- NOTE | 2023-08-14 09:31 | Psychiatric Consultation ---
Date of Consultation August 14, 2023 Impression / Recommendations Impression Diagnostically consistent with hyperactive delirium/encephalopathy in context of hip fracture requiring surgery, hospitalization with disruption to normal sleep/wake cycle and routine and has required opioid pain medications. At times with significant hyperactivity/restlessness/agitation which have required use of IM medication and scheduled Seroquel. Encouragingly overnight and so far today has been cooperative with care and with reduction in restlessness/tolerating medical interventions. Unfortunately there are no known medications to cure or shorten the duration of delirium; rather antipsychotics are used at times to help with sleep/appetite/psychomotor agitation and hallucinations if these symptoms are causing significant distress and/or interfering with acute safety. Duration of delirium varies broadly with persistent delirium (defined as lasting for weeks or months) occurring frequently with % of patients exhibiting some symptoms of delirium at 6 months after symptom onset, see:Samir Sarmiento., Eddie Ruiz., Luis Beckettet al.Delirium.Kalyn Rev Dis Primers6, 90 (2020). [email or web address]://doi.org/[email or web address]. With that said antipsychotic medications can offer some benefits in terms of reducing hyperactive behaviors that are leading to unsafe behaviors or preventing medical treatment (i.e. pulling out lines, necessary interventions for safety, etc). So far it seems he is tolerating Seroquel and responding well when olanzapine is required. No evidence for EPS. Automated QTc on EKG this morning was within normal limits, cardiology interpretation pending. Overall, I spent a total of 45 minutes with this case including review of chart records, review of labwork, review of EKG QTc, direct evaluation of the patient at bedside, counseling the patient, discussion of the patient with the Nurse and with the hospitalist provider, discussion with the psychiatric liason during clinical rounds and documentation in the electronic health record. (1) Delirium due to another medical condition, acute, hyperactive: Plan -Can continue with seroquel 12.5 mg qAM and 25mg HS and can titrate up to 25mg BID for behavioral management as needed; would check EKG QTc routinely to ensure QTc remains <500ms (if exceeds then antipsychotic medications should be held). As delirium resolves Seroquel should be reduced to HS dose only and then discontinued. -Consider melatonin 3mg qhs -Continue medical treatment to rule out and treat any underlying causes contributing to potential delirium, avoid or limit use of deliriogenic medications (benzodiazepines, opioids, anticholinergics) -Continue with delirium prevention measures: raising blinds during the day, closing at night, frequent re-orientation, contact with family/friends, explaining procedures/nursing care measures prior to physical contact, correct any hearing and visual impairments -For behavioral emergency: olanzapine 5mg IM (DO NOT exceed 20mg per 24 hours, check EKG if IM dose required, NEVER co-administer with IM or IV benzodiazepines ). Psych History Identifying Data 78 yo man with a history of HFpEF, liver cirrhosis, mitral vegetation, atrial fibrillation (on rivaroxaban), hyperlipidemia, and septic arthritis admitted for a hip fracture. Psychiatry consulted for recommendations for delirium. Chief Complaint "A bank". History of Present Illness Kvng presented after a fall and hip fracture with some confusion in the ED. Collateral from family reported no significant cognitive deficits at baseline per ED notes. Following surgical intervention he has been confused with periods of significant hyperactivity, confusion and pulling at surgical dressings and medical equipment. He has been receiving po Seroquel 25mg (to help with suspected sundowning) and then addition of 12.5mg qAM dose and has been getting olanzapine 5mg IM at times. Required two doses of olanzapine 5mg IM last evening at 4pm and 6pm. Today he is confused to place and reason for hospitalization. Denies any pain. Per discussion with RN he was cooperative overnight and more oriented at times this morning, including remembering that he fell prior to admission. Cooperative with PT and RN this morning but requiring assistance to eat and to reposition. Allergies Allergy/AdvReac Type Severity Reaction Status Date / Time house dust Allergy Mild breathing Verified 08/08/23 17:18 problems cephalexin [From Keflex] AdvReac Mild Rash Verified 08/08/23 17:18 Home Medications Medication Instructions Recorded Confirmed Type multivitamin-ferrous 1 tab PO QAM 06/04/18 08/08/23 History fumarate-folic acid 18 mg-400 mcg tablet (Centrum) metoprolol succinate 25 mg 25 mg PO QAM #90 tabs 10/31/22 08/08/23 Rx tablet,extended release 24 hr rivaroxaban 20 mg tablet (Xarelto) 20 mg PO QAM #90 tabs 10/31/22 08/08/23 Rx dicloxacillin 500 mg capsule 500 mg PO BID Pyogenic bacterial 03/24/23 08/08/23 Rx arthritis of knee #180 caps albuterol sulfate 90 mcg/actuation 2 puff inhalation Q6H PRN 06/29/23 08/08/23 Rx aerosol inhaler shortness of breath or wheezing #8.5 grams furosemide 20 mg tablet 20 mg PO DAILY #90 tabs 07/07/23 08/08/23 Rx potassium chloride 20 mEq 20 meq PO QAM 08/08/23 08/08/23 History tablet,extended release Patient History Medical History Chronic heart failure with preserved ejection fraction (HFpEF) Allergy-induced asthma NO INHALER Arthritis Atrial fibrillation FOLLOWED BY DR. BUSH Hx of congestive heart failure REASON FOR LASIX Pyogenic bacterial arthritis of knee TAKES ANX CHRONIC TX Surgical History History of left cataract surgery H/O knee surgery I&D LEFT KNEE History of tooth extraction History of fracture of leg Right leg - compound leg fracture>HARDWARE INTACT S/P surgical removal of pilonidal cyst Hx of tonsillectomy Family History Mother Stroke Father Aneurysm Emphysema lung Other No family history of adverse response to anesthesia No family history of bleeding disorder Denies family history of Ovarian cancer Prostate cancer Hearing loss Heart disease Myocardial infarction Breast cancer Lung cancer Colorectal cancer Cancer Hypertension Asthma Social History Smoking Status: Never smoker Second Hand Exposure: No; Do You Dip or Chew Tobacco: No; Hx Alcohol Use: No Hx Substance Use: No Preferred Language: Liberian Communication Ability: Effective Visual Impairment: No Limitations Hearing Ability: Use of Hearing Aid Speeder Frame Tender Required: No Beliefs That Will Affect Care: None marital status: / Current Living Situation: Family Current Living Situation Comment: patient lives with son current occupational status: retired 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, 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 How many Children do You have: 3 Other Information That Helps Us Care for You: No Feels Safe at Home: Yes Safety Concerns: Feels Safe At This Time Childhood Exposure to Second-Hand Smoke: No Diet: regular caffeine: Yes during the past year weight has: remained stable Dental Care, Regularly: No Physical Activity Frequency: Daily Seatbelt Use: always Sunscreen Use: No Assistive Devices: Walker Physical Exam Psychiatric: Orientation: alert and oriented to person; + not oriented to place and + not oriented to time Apperance: + disheveled Eye Contact: + fair eye contact Motor Behavior: no abnormal motor movements Speech: + abnormal rate/rhythm/volume of speech (brief ) Affect: + labile affect Mood: no irritable mood and no angry mood Thought Process: + looseness of associations Thought Content: reality based without delusions (sparsity of thought content) Hallucinations: no auditory hallucinations and no visual hallucinations Cognition: language grossly intact; + recent memory not intact and + attention not intact Insight: + severely impaired insight Judgment: + limited judgement Vital Signs (Past 24 Hours): Last Vital Signs Temp 36.8 C 08/14/23 08:00 Pulse 122 H 08/14/23 08:24 Resp 22 08/14/23 08:00 BP 110/69 08/14/23 08:00 Pulse Ox 96 08/14/23 08:00 O2 Del Method Nasal Cannula 08/14/23 08:00 O2 Flow Rate 1 08/14/23 08:00 Results & Data (PSY) Medications Administered Acetaminophen (Acetaminophen 325 Mg Tab) 650 mg PO Q6 MICHAEL Stop: 09/11/23 12:29 Last Admin: 08/14/23 05:26 Dose: 650 mg Documented By: Admin: 08/13/23 23:20 Dose: 650 mg Documented By: Admin: 08/13/23 18:07 Dose: Not Given Documented By: Admin: 08/13/23 11:49 Dose: 650 mg Documented By: Admin: 08/13/23 05:57 Dose: 650 mg Documented By: Admin: 08/13/23 00:56 Dose: 650 mg Documented By: Admin: 08/12/23 17:39 Dose: 650 mg Documented By: Admin: 08/12/23 12:52 Dose: 650 mg Documented By: DESTINY Dicloxacillin Sodium (Dicloxacillin Sodium 250 Mg Cap) 500 mg PO BID MICHAEL Stop: 09/08/23 08:59 Last Admin: 08/14/23 09:13 Dose: 500 mg Documented By: Admin: 08/13/23 20:34 Dose: 500 mg Documented By: Admin: 08/13/23 09:35 Dose: 500 mg Documented By: Admin: 08/12/23 22:10 Dose: 500 mg Documented By: Admin: 08/12/23 08:26 Dose: 500 mg Documented By: Admin: 08/11/23 20:29 Dose: 500 mg Documented By: Admin: 08/11/23 08:46 Dose: 500 mg Documented By: Admin: 08/10/23 20:24 Dose: 500 mg Documented By: Admin: 08/10/23 08:50 Dose: 500 mg Documented By: Admin: 08/09/23 21:21 Dose: 500 mg Documented By: Admin: 08/09/23 08:08 Dose: 500 mg Documented By: JOHAN Hydromorphone HCl (Hydromorphone Inj 0.5 Mg/0.5 Ml Syr) 0.5 mg IV Q4H PRN PRN Reason: pain not relieved w/ PO meds Stop: 08/22/23 20:59 Last Admin: 08/13/23 15:21 Dose: 0.5 mg Documented By: Admin: 08/12/23 14:00 Dose: 0.5 mg Documented By: DESTINY Metoprolol Succinate (Metoprolol Succ 25mg Ext Rel Tab) 25 mg PO QAM [facility] Stop: 09/08/23 08:59 Last Admin: 08/14/23 09:13 Dose: 25 mg Documented By: Admin: 08/13/23 09:35 Dose: 25 mg Documented By: Admin: 08/12/23 08:26 Dose: 25 mg Documented By: Admin: 08/11/23 08:46 Dose: 25 mg Documented By: Admin: 08/10/23 08:50 Dose: 25 mg Documented By: Admin: 08/09/23 08:09 Dose: 25 mg Documented By: JOHAN Olanzapine (Olanzapine 10 Mg/2.1 Ml Sdv) 5 mg IM Q12H PRN PRN Reason: Agitation Stop: 09/12/23 15:49 Last Admin: 08/13/23 15:57 Dose: 5 mg Documented By: DESTINY Oxycodone HCl (Oxycodone Hcl Ir 5 Mg Tab (Immediate Release)) 5 mg PO Q6 PRN PRN Reason: moderate to severe pain Stop: 08/26/23 12:28 Last Admin: 08/13/23 13:31 Dose: 5 mg Documented By: Admin: 08/12/23 12:52 Dose: 5 mg Documented By: DESTINY Polyethylene Glycol (Polyethylene (Miralax) 17 Gm Pack) 17 gm PO Q6 [facility] Stop: 09/11/23 00:00 Last Admin: 08/14/23 05:30 Dose: Not Given Documented By: Admin: 08/13/23 23:20 Dose: 17 gm Documented By: Admin: 08/13/23 18:07 Dose: Not Given Documented By: Admin: 08/13/23 13:14 Dose: Not Given Documented By: Admin: 08/13/23 05:57 Dose: 17 gm Documented By: Admin: 08/13/23 00:56 Dose: 17 gm Documented By: Admin: 08/12/23 18:22 Dose: Not Given Documented By: Admin: 08/12/23 13:27 Dose: 17 gm Documented By: Admin: 08/12/23 05:28 Dose: 17 gm Documented By: Admin: 08/11/23 23:30 Dose: 17 gm Documented By: HOMERO Quetiapine Fumarate (Quetiapine Fumarate 25 Mg Tablet) 25 mg PO HS [facility] Stop: 09/12/23 20:59 Last Admin: 08/13/23 20:34 Dose: 25 mg Documented By: IRAJ Quetiapine Fumarate (Quetiapine Fumarate 25 Mg Tablet) 12.5 mg PO DAILY MICHAEL Stop: 09/13/23 08:59 Last Admin: 08/14/23 09:13 Dose: 12.5 mg Documented By: LORELEI Rivaroxaban (Rivaroxaban 20 Mg Tab) 20 mg PO QDD [facility] Stop: 09/09/23 16:29 Last Admin: 08/13/23 15:53 Dose: 20 mg Documented By: Admin: 08/12/23 16:25 Dose: 20 mg Documented By: Admin: 08/11/23 15:45 Dose: 20 mg Documented By: Admin: 08/10/23 16:16 Dose: 20 mg Documented By: MARIANELA Vitamin D (Cholecalciferol 25 Mcg (1000 Units) Tab) 25 mcg PO QAM [facility] Stop: 09/12/23 08:59 Last Admin: 08/14/23 09:13 Dose: 25 mcg Documented By: Admin: 08/13/23 09:35 Dose: 25 mcg Documented By: CM Coding Level of Care Code 42359 IN/OBS CONSULT LVL 3,45M Diagnoses Delirium due to another medical condition, acute, hyperactive F05
[2023-08-14] MEDS: METOPROLOL TARTRATE 1 MG/ML VIAL IV STA (12:37)
[2023-08-14] MEDS: ACETAMINOPHEN 1,000 MG/100 ML VIAL IV STA (13:35)
--- NOTE | 2023-08-14 14:42 | Hospitalist Progress Note ---
Date of Service August 14, 2023 Assessment & Plan (1) Closed intertrochanteric fracture of left femur: (2) Altered mental status: (3) Chronic heart failure with preserved ejection fraction (HFpEF): (4) Atrial fibrillation with RVR: (5) History of MRSA infection: (6) Postoperative anemia due to acute blood loss: (7) Vitamin D deficiency: Plan #Closed intertrochanteric fracture of left femur: - Ground-level fall on 08/07; no LOC; Left femur x-ray revealed comminuted fracture of the proximal femur - OR with Dr. Sarmiento on 08/08 left long trochanteric fixation nail - Multimodal pain regimen: Acetaminophen PO scheduled, Oxycodone 5 mg every 6 hours as needed, IV Dilaudid 0.5 mg every 4 hours as needed - Is re starting on Xarelto for atrial fib, and VTE prevention - PT / OT recs rehab - CM working on getting pt to [facility], but this requires [id number] call on Monday08/14/23 (Peer-peer #: [phone] option 5.) #Postop acute blood loss anemia - Ortho recs restarting xarelto - monitor Hgb closely #Delirium - per daughter A&O x3 at baseline - mildly abnormal urine, send culture - Head CT without acute findings - required Seroquel 25 at bedtime 1 dose to prevent sundowning on the evening of 08/09 - Currently on Seroquel 25mg nightly standing along with seroquel 12.5mg daily prn -IM olanzapine 5 mg for acute agitation - Patient required escalating dose to control behavior, thus psych consulted -Psychiatry was consulted and they recommend to continue Seroquel 25 mg at night which can titrate to 25 mg twice daily. -Also advised to add p.o. melatonin to help with sleep. 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 Admission and Anticipated Discharge Date Admission Date: August 08, 2023 Subjective Patient seen and examined by the bedside, no new complaints denies chest pain or shortness of breath, says his pain is under better control. Review of Systems Review of Systems: All systems reviewed are negative, apart from the ones contained in the history. Physical Exam Physical Exam: The patient is awake, alert Oriented x 1 HEENT--PERRL, EOMI, mucous membranes and oropharynx mildly dry Neck--supple. No JVD. No bruits. Thyroid normal, trachea midline, no adenopathy. Heart--normal S1 and S2. No murmurs, rubs or gallops. Lungs--clear bilaterally, no respiratory distress, no accessory muscle use. Abdomen--normal bowel sounds and soft. Extremities--no cyanosis or clubbing. No edema. Dermatologic--normal skin turgor, normal color, no abnormal lymph nodes, no rash. Neurologic--cranial nerves II through XII grossly intact. Rheumatologic--normal range of motion. Psychiatric--normal affect. Results & Data Results & Data Vital Signs (Past 12 Hours) Vital Signs Temp Pulse Pulse Resp BP BP Pulse Ox 08/14/23 12:52 131 H 113/70 08/14/23 12:37 160 H 114/77 08/14/23 11:01 98.1 F 109 H 20 90/76 L 98 08/14/23 08:24 122 H 08/14/23 08:00 98.2 F 122 H 22 110/69 96 O2 Del Method O2 Flow Rate 08/14/23 12:52 08/14/23 12:37 08/14/23 11:01 Nasal Cannula 1 08/14/23 08:24 08/14/23 08:00 Nasal Cannula 1 PG Care Time/CCT Total # of Minutes Spent Total Time Spent with Patient: Total time spent is greater than 50% in coordination of care (as documented) at patient's floor/unit and/or counseling patient: Coding Level of Care Code 12972 SUB INP/OBS CARE 2/35MIN Diagnoses Closed displaced intertrochanteric fracture of left femur, initial encounter S72.142A Encounter type: initial encounter Fracture alignment: displaced Altered mental status R41.82 Chronic heart failure with preserved ejection fraction (HFpEF) I50.32 Atrial fibrillation with RVR I48.91 History of MRSA infection Z86.14 Postoperative anemia due to acute blood loss D62 Vitamin D deficiency E55.9 Time Spent (min) 35 (1) Closed intertrochanteric fracture of left femur Encounter type: initial encounter Fracture alignment: displaced Qualified Code(s): S72.142A - Displaced intertrochanteric fracture of left femur, initial encounter for closed fracture
[2023-08-14] MEDS ORDERED: STAT IV Infusion **Titration per Protocol STA (15:19)
[2023-08-14] MEDS: dilTIAZem HCl 5 MG/ML 5 ML VIAL IV STA (15:31)
[2023-08-14] MEDS: dilTIAZem HCL 125 MG in DEXTROSE 5% 100 ML IV SCH (15:37)
--- NOTE | 2023-08-14 16:02 | Electrocardiogram Report ---
Test Reason : Blood Pressure : / mmHG Vent. Rate : 117 BPM Atrial Rate : 104 BPM P-R Int : 000 ms QRS Dur : 086 ms QT Int : 292 ms P-R-T Axes : 000 001 -38 degrees QTc Int : 407 ms Poor data quality, interpretation may be adversely affected Atrial fibrillation with rapid ventricular response Abnormal ECG When compared with ECG of 08-AUG-2023 14:57, No significant change was found Confirmed by Evan Aviles ([id number]) on 08/14/2023 4:02:40 PM Referred By: REFERRED SELF Confirmed By:Dimas Aviles
[2023-08-14] MEDS: MELATONIN 3 MG TAB PO PRN (20:36)
[2023-08-15 08:36] LABS: BUN Creatinine Ratio 21.9 (10-20); Calcium 8.2 mg/dl (8.6-10.3); Creatinine Clr Calc Pharmacy 69.2 ml/min; Est GFR (African American) 86.8 ml/min; Est GFR (Non-African American) 74.9 ml/min; Magnesium 1.9 mg/dl (1.7-2.4); Potassium 4.1 mmol/L (3.5-5.1)
[2023-08-15] MEDS: SODIUM CHLORIDE 0.9% 1,000 ML IV SCH (10:11)
[2023-08-15] MEDS: dilTIAZem HCL 240 MG CAPCR PO SCH (10:29)
--- NOTE | 2023-08-15 14:57 | Hospitalist Progress Note ---
Date of Service August 15, 2023 Assessment & Plan (1) Closed intertrochanteric fracture of left femur: (2) Altered mental status: (3) Chronic heart failure with preserved ejection fraction (HFpEF): (4) Atrial fibrillation with RVR: (5) History of MRSA infection: (6) Postoperative anemia due to acute blood loss: (7) Vitamin D deficiency: Plan #Closed intertrochanteric fracture of left femur: - Ground-level fall on 08/07; no LOC; Left femur x-ray revealed comminuted fracture of the proximal femur - OR with Dr. Sarmiento on 08/08 left long trochanteric fixation nail - Multimodal pain regimen: Acetaminophen PO scheduled, Toradol IV for short. - Continue rivaroxaban - PT / OT recs rehab - CM working on getting pt to [facility], but this requires [id number] call on Monday08/14/23 (Peer-peer #: [phone] option 5.) #Postop acute blood loss anemia - Ortho recs restarting xarelto - monitor Hgb closely #Hyperactive Delirium -Acute encephalopathy most likely secondary to hyperactive delirium -In the setting of recent hip surgery - per daughter A&O x3 at baseline - Head CT without acute findings, Will obtain MRI in view of worsening delirium -Will hold opioids and narcotics - required Seroquel 25 at bedtime - Currently on Seroquel 25mg nightly standing along with seroquel 12.5mg daily prn -IM olanzapine 5 mg for acute agitation - Patient required escalating dose to control behavior, thus psych consulted -Psychiatry was consulted and they recommend to continue Seroquel 25 mg at night which can titrate to 25 mg twice daily. -Also advised to add p.o. melatonin to help with sleep. 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 Admission and Anticipated Discharge Date Admission Date: August 08, 2023 Subjective Patient seen and examined, He is becoming more delirious with occasional spasms Review of Systems Review of Systems: Unable to obtain due to delirium Physical Exam Physical Exam: The patient is awake, Confused HEENT--PERRL, EOMI, mucous membranes and oropharynx mildly dry Neck--supple. No JVD. No bruits. Thyroid normal, trachea midline, no adenopathy. Heart--normal S1 and S2. No murmurs, rubs or gallops. Lungs--clear bilaterally, no respiratory distress, no accessory muscle use. Abdomen--normal bowel sounds and soft. Extremities--no cyanosis or clubbing. No edema. Dermatologic--normal skin turgor, normal color, no abnormal lymph nodes, no rash. Neurologic--cranial nerves II through XII grossly intact. Rheumatologic--normal range of motion. Psychiatric--Unable to fully assess Results & Data Results & Data Vital Signs (Past 12 Hours) Vital Signs Temp Pulse Resp BP Pulse Ox O2 Del Method 08/15/23 11:00 99.1 F 105 H 24 101/72 92 Room Air 08/15/23 08:10 Room Air 08/15/23 07:35 97.7 F 109 H 26 H 114/84 90 Room Air 08/15/23 06:00 108 H 118/90 08/15/23 05:30 99 H 102/75 08/15/23 05:00 108 H 113/67 08/15/23 04:29 106 H 116/73 08/15/23 03:00 96 H 95/70 L PG Care Time/CCT Total # of Minutes Spent Total Time Spent with Patient: Total time spent is greater than 50% in coordination of care (as documented) at patient's floor/unit and/or counseling patient: Coding Level of Care Code 28621 SUB INP/OBS CARE MIN Diagnoses Closed displaced intertrochanteric fracture of left femur, initial encounter S72.142A Encounter type: initial encounter Fracture alignment: displaced Altered mental status R41.82 Chronic heart failure with preserved ejection fraction (HFpEF) I50.32 Atrial fibrillation with RVR I48.91 History of MRSA infection Z86.14 Postoperative anemia due to acute blood loss D62 Vitamin D deficiency E55.9 Time Spent (min) 35 (1) Closed intertrochanteric fracture of left femur Encounter type: initial encounter Fracture alignment: displaced Qualified Code(s): S72.142A - Displaced intertrochanteric fracture of left femur, initial encounter for closed fracture
--- NOTE | 2023-08-15 17:31 | Magnetic Resonance Report ---
Brain MRI WITHOUT CONTRAST HISTORY: confusion TECHNIQUE: Multiplanar multisequence MRI of the brain was performed without the use of contrast. COMPARISON STUDY: Head CT 08/08/2023. FINDINGS: Motion artifact. There is no mass, hematoma, midline shift, or acute infarct. The paranasal sinuses are clear. The mastoid air cells are clear. The ventricles and sulci demonstrate mild age-re lated involutional changes. Scattered foci of T2 hyperintensity seen within the periventricular and s ubcortical white matter are nonspecific but suggestive of mild microvascular ischemic changes. The [place] vascular flow voids at the skull base are well-maintained. Prior bilateral lens replacement. IMPRESSION: Motion artifact. No definite acute intracranial abnormality. ACT 112: Negative or not required by law. Electronically signed by: Jhonatan Lala M.D. 08/15/2023 5:29 PM
[2023-08-15] MEDS ORDERED: Nursing to Pharmacy Communication SCH (19:30)
[2023-08-15 22:52] LABS: Appearance Urine Cloudy (Clear); Bilirubin Urine 2+ (Negative); Blood Urine 3+ (Negative); Color Urine Orange; Glucose Urine UA Negative (Negative); Ketones Urine Trace (Negative); Leukocyte Esterase Urine 2+ (Negative); Nitrite Urine Positive (Negative); Protein Urine 1+ (Negative); Specific Gravity Urine 1.027 (1.000-1.030); Urobilinogen Urine Positive (Negative); pH Urine 5.5 (4.5-7.5)
[2023-08-15 23:06] LABS: Epithelial Cell Urine Auto 0-2 /hpf (0-2); White Blood Cell Casts Urine Present /lpf (None Prsent)
[2023-08-15 23:08] LABS: Bacteria Urine Automated 2+ (None Seen)
[2023-08-16] MEDS: KETOROLAC TROMETHAMINE 15 MG/ML VIAL IV PRN (04:56)
[2023-08-16] MEDS: cefTRIAXone SODIUM 1,000 MG/50 ML BAG IV SCH (08:07)
--- NOTE | 2023-08-16 12:11 | Hospitalist Progress Note ---
Date of Service August 16, 2023 Assessment & Plan (1) Closed intertrochanteric fracture of left femur: (2) Altered mental status: (3) Chronic heart failure with preserved ejection fraction (HFpEF): (4) Atrial fibrillation with RVR: (5) History of MRSA infection: (6) Postoperative anemia due to acute blood loss: (7) Vitamin D deficiency: Plan #Closed intertrochanteric fracture of left femur: - Ground-level fall on 08/07; no LOC; Left femur x-ray revealed comminuted fracture of the proximal femur - OR with Dr. Sarmiento on 08/08 left long trochanteric fixation nail - Multimodal pain regimen: -Acetaminophen PO scheduled, Toradol IV for short time - Continue rivaroxaban - PT / OT recs rehab - CM working on getting pt to [facility], but this requires [id number] call on Monday08/14/23 (Peer-peer #: [phone] option 5.) #Postop acute blood loss anemia - Ortho recs restarting xarelto - monitor Hgb closely #Hyperactive Delirium -Acute encephalopathy most likely secondary to hyperactive delirium In the setting of recent hip surgery -Much improved today, patient is now alert send awake alert oriented following discontinuation of narcotics - Head CT without acute findings, MRI brain also within normal limits no acute pathology only chronic ischemic changes -Will continue to hold opioids and narcotics - required Seroquel 25 at bedtime - Currently on Seroquel 25mg nightly standing along with seroquel 12.5mg daily prn -IM olanzapine 5 mg for acute agitation only -Added melatonin p.o. to help sleep at night #Chronic heart failure with preserved ejection fraction (HFpEF): -Appears currently compensated - Last echo on 07/27/2023 revealed LVEF at 60 to 65%; moderate tricuspid regurgitation -Lasix was held prior to surgery. 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 Physical Exam Physical Exam: The patient is awake,Alert HEENT--PERRL, EOMI, mucous membranes and oropharynx mildly dry Neck--supple. No JVD. No bruits. Thyroid normal, trachea midline, no adeno srinivas. Heart--normal S1 and S2. No murmurs, rubs or gallops. Lungs--clear bilaterally, no respiratory distress, no accessory muscle use. Abdomen--normal bowel sounds and soft. Extremities--no cyanosis or clubbing. No edema. Dermatologic--normal skin turgor, normal color, no abnormal lymph nodes, no rash. Neurologic--cranial nerves II through XII grossly intact. Rheumatologic--normal range of motion. Psychiatric--Unable to fully assess Results & Data Results & Data Vital Signs (Past 12 Hours) Vital Signs Temp Pulse Resp BP Pulse Ox O2 Del Method 08/16/23 11:00 98.1 F 101 H 16 103/69 96 Room Air 08/16/23 07:03 Room Air 08/16/23 07:00 97.9 F 94 H 18 106/80 95 Room Air 08/16/23 03:40 98.2 F 96 H 20 119/82 93 Room Air PG Care Time/CCT Total # of Minutes Spent Total Time Spent with Patient: Total time spent is greater than 50% in coordination of care (as documented) at patient's floor/unit and/or counseling patient: Coding Level of Care Code 44456 SUB INP/OBS CARE 2/35MIN Diagnoses Closed displaced intertrochanteric fracture of left femur, initial encounter S72.142A Encounter type: initial encounter Fracture alignment: displaced Altered mental status R41.82 Chronic heart failure with preserved ejection fraction (HFpEF) I50.32 Atrial fibrillation with RVR I48.91 History of MRSA infection Z86.14 Postoperative anemia due to acute blood loss D62 Vitamin D deficiency E55.9 Time Spent (min) 35 (1) Closed intertrochanteric fracture of left femur Encounter type: initial encounter Fracture alignment: displaced Qualified Code(s): S72.142A - Displaced intertrochanteric fracture of left femur, initial encounter for closed fracture
[2023-08-17] MEDS: FUROSEMIDE 20 MG TAB PO SCH (08:08)
[2023-08-17 08:37] LABS: Hematocrit (blood only) 28.4 % (42.0-52.0); Hemoglobin 8.8 g/dl (14.0-18.0); Mean Corpuscular Volume 93.7 fL (80.0-100.0); Mean Platelet Volume 11.8 fL (9.4-12.4); Nucleated RBC # (auto) 0.03 K/uL (0.00-0.12); Nucleated RBC % (auto) 0.3 %; Platelet Count 343 K/uL (130-400); RDW Coefficient of Variation 14.6 % (11.5-14.5); RDW Standard Deviation 50.4 fL (36.4-46.3); Red Blood Count 3.03 M/uL (4.70-6.10); White Blood Count 11.74 K/ul (4.8-10.8)
[2023-08-17 09:00] LABS: BUN Creatinine Ratio 24.2 (10-20); Calcium 8.2 mg/dl (8.6-10.3); Creatinine Clr Calc Pharmacy 75.8 ml/min; Est GFR (African American) 92.6 ml/min; Est GFR (Non-African American) 79.9 ml/min
--- NOTE | 2023-08-17 12:03 | Hospitalist Progress Note ---
Date of Service August 17, 2023 Assessment & Plan (1) Closed intertrochanteric fracture of left femur: (2) Altered mental status: (3) Chronic heart failure with preserved ejection fraction (HFpEF): (4) Atrial fibrillation with RVR: (5) History of MRSA infection: (6) Postoperative anemia due to acute blood loss: (7) Vitamin D deficiency: Plan #UTI: -Urinalysis shows evidence of UTI -Urine cultures growing gram-negative's, full characterization pending -Continue empiric IV ceftriaxone #Closed intertrochanteric fracture of left femur: - Ground-level fall on 08/07; no LOC; Left femur x-ray revealed comminuted fracture of the proximal femur - OR with Dr. Sarmiento on 08/08 left long trochanteric fixation nail - Multimodal pain regimen: -Acetaminophen PO scheduled, Toradol IV for short time - Continue rivaroxaban - PT / OT recs rehab - CM working on getting pt to [facility], but this requires [id number] call on Monday08/14/23 (Peer-peer #: [phone] option 5.) #Postop acute blood loss anemia - Ortho recs restarting xarelto - monitor Hgb closely #Hyperactive Delirium -Acute encephalopathy most likely secondary to hyperactive delirium In the setting of recent hip surgery -Much improved today, patient is now alert send awake alert oriented following discontinuation of narcotics - Head CT without acute findings, MRI brain also within normal limits no acute pathology only chronic ischemic changes -Will continue to hold opioids and narcotics - required Seroquel 25 at bedtime - Currently on Seroquel 25mg nightly standing along with seroquel 12.5mg daily prn -IM olanzapine 5 mg for acute agitation only -Added melatonin p.o. to help sleep at night #Chronic heart failure with preserved ejection fraction (HFpEF): -Appears currently compensated - Last echo on 07/27/2023 revealed LVEF at 60 to 65%; moderate tricuspid regurgitation -Lasix was held prior to surgery. 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 - Continue dicloxacillin 500mg BID for chronic suppression therapy #Vitamin D deficiency - start PO supplementation #Code status: Full code VTE PPx: Resume Xarelto 20 on 08/11/2023 Dispo: pending clinical improvement, CM on board for placement , Acute rehab was denied, probably when patient is more stable he may qualify for SNF Admission and Anticipated Discharge Date Admission Date: August 08, 2023 Subjective Patient seen and examined, He is now more awake alert and oriented Review of Systems Review of Systems: All systems reviewed are negative, apart from the ones contained in the history. Physical Exam Physical Exam: The patient is awake,Alert HEENT--PERRL, EOMI, mucous membranes and oropharynx mildly dry Neck--supple. No JVD. No bruits. Thyroid normal, trachea midline, no adenopathy. Heart--normal S1 and S2. No murmurs, rubs or gallops. Lungs--clear bilaterally, no respiratory distress, no accessory muscle use. Abdomen--normal bowel sounds and soft. Extremities--no cyanosis or clubbing. No edema. Dermatologic--normal skin turgor, normal color, no abnormal lymph nodes, no rash. Neurologic--cranial nerves II through XII grossly intact. Rheumatologic--normal range of motion. Psychiatric--Unable to fully assess Results & Data Results & Data Vital Signs (Past 12 Hours) Vital Signs Temp Pulse Resp BP BP Pulse Ox O2 Del Method 08/17/23 11:18 98.2 F 99 H 19 117/76 94 Room Air 08/17/23 08:08 97.7 F 101 H 18 123/81 95 Room Air 08/17/23 07:56 Room Air 08/17/23 03:20 99.0 F 88 22 122/87 95 Room Air PG Care Time/CCT Total # of Minutes Spent Total Time Spent with Patient: Total time spent is greater than 50% in coordination of care (as documented) at patient's floor/unit and/or counseling patient: Coding Level of Care Code 00758 SUB INP/OBS CARE 2/35MIN Diagnoses Closed displaced intertrochanteric fracture of left femur, initial encounter S72.142A Encounter type: initial encounter Fracture alignment: displaced Altered mental status R41.82 Chronic heart failure with preserved ejection fraction (HFpEF) I50.32 Atrial fibrillation with RVR I48.91 History of MRSA infection Z86.14 Postoperative anemia due to acute blood loss D62 Vitamin D deficiency E55.9 Time Spent (min) 35 (1) Closed intertrochanteric fracture of left femur Encounter type: initial encounter Fracture alignment: displaced Qualified Code(s): S72.142A - Displaced intertrochanteric fracture of left femur, initial encounter for closed fracture
[2023-08-17] MEDS ORDERED: Nursing to Pharmacy Communication SCH (17:15)
[2023-08-17] MEDS: ALBUTEROL HFA 8 GM INHALER INH PRN (19:46)
[2023-08-18] MEDS: METOPROLOL TARTRATE 1 MG/ML VIAL IV PRN (07:36)
--- NOTE | 2023-08-18 10:43 | Orthopedic Progress Note ---
Date of Service August 18, 2023 Assessment & Plan (1) Closed intertrochanteric fracture of left femur: POD #9 from left hip TFN. Remains inpatient for encephalopathy and mental status changes. No change in orthopedic POC. Continue attempts at mobilization DVT prophylaxis: loly's, scd's and xarelto Krystal could be removed no earlier than 2 weeks postop. Please contact me by Art text if there are any issues with his postsurgical wounds. Dispo: per primary team. Please tigertext me with any ortho questions. Will follow peripherally Subjective Spoke with nursing about his status. Patient was unable to communicate due to agitation. No real progress on mobilization because of his encephalopathy. Review of Systems All systems reviewed & are unremarkable except as noted in HPI & below. Physical Exam LLE: The wounds are well-approximated, clean and dry. Krystal are intact. Evolving bruising is settling out. Thigh compartments are soft. Not able to cooperate otherwise for exam. Constitutional WD/WN, vitals as above no acute distress and not intoxicated appearing Respiratory normal respiratory effort; no labored breathing Cardiovascular Extremities: normal capillary refill Results & Data Results & Data Laboratory Results H & H 08/08/23 08/09/23 08/10/23 Range/Units 14:55 05:47 06:47 Hgb 13.3 L 12.3 L 11.1 L (14.0-18.0) g/dl Hct 42.3 39.0 L 35.1 L (42.0-52.0) % 08/11/23 08/12/23 08/13/23 Range/Units 05:45 06:24 08:09 Hgb 9.7 L 10.0 L 9.3 L (14.0-18.0) g/dl Hct 30.4 L 31.9 L 29.4 L (42.0-52.0) % 08/14/23 08/17/23 Range/Units 07:08 08:00 Hgb 9.3 L 8.8 L (14.0-18.0) g/dl Hct 29.1 L 28.4 L (42.0-52.0) % Coagulation 08/08/23 08/09/23 Range/Units 14:55 05:47 INR 1.3 H 1.2 H (0.9-1.1) Diagnostic Findings . PG Care Time/CCT Total # of Minutes Spent Total Time Spent with Patient: Total time spent is greater than 50% in coordination of care (as documented) at patient's floor/unit and/or counseling patient: Coding Level of Care Code 22479 Post Operative Follow-Up Diagnoses Closed displaced intertrochanteric fracture of left femur, initial encounter S72.142A Encounter type: initial encounter Fracture alignment: displaced (1) Closed intertrochanteric fracture of left femur Encounter type: initial encounter Fracture alignment: displaced Qualified Code(s): S72.142A - Displaced intertrochanteric fracture of left femur, initial encounter for closed fracture
--- NOTE | 2023-08-18 11:21 | Hospitalist Progress Note ---
Date of Service August 18, 2023 Assessment & Plan (1) Closed intertrochanteric fracture of left femur: (2) Altered mental status: (3) Chronic heart failure with preserved ejection fraction (HFpEF): (4) Atrial fibrillation with RVR: (5) History of MRSA infection: (6) Postoperative anemia due to acute blood loss: (7) Vitamin D deficiency: Plan #UTI: -Urinalysis shows evidence of UTI -Urine cultures growing gram-negative's, full characterization pending -Continue empiric IV ceftriaxone #Closed intertrochanteric fracture of left femur: - Ground-level fall on 08/07; no LOC; Left femur x-ray revealed comminuted fracture of the proximal femur - OR with Dr. Sarmiento on 08/08 left long trochanteric fixation nail - Multimodal pain regimen: -Acetaminophen PO scheduled, Toradol IV for short time - Continue rivaroxaban - PT / OT recs rehab - Placement pending clinical improvement #Postop acute blood loss anemia - Ortho recs restarting xarelto - monitor Hgb closely #Hyperactive Delirium -Acute encephalopathy most likely secondary to hyperactive delirium In the setting of recent hip surgery -His mentation waxes and wanes, he needed some soft restraints with mitts. - Head CT without acute findings, MRI brain also within normal limits no acute pathology only chronic ischemic changes -Will continue to hold opioids and narcotics - required Seroquel 25 at bedtime - Currently on Seroquel 25mg nightly standing along with seroquel 12.5mg daily prn -IM olanzapine 5 mg for acute agitation only -Added melatonin p.o. to help sleep at night #Chronic heart failure with preserved ejection fraction (HFpEF): -Appears currently compensated - Last echo on 07/27/2023 revealed LVEF at 60 to 65%; moderate tricuspid regurgitation -Lasix was held prior to surgery. 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 - Continue dicloxacillin 500mg BID for chronic suppression therapy #Vitamin D deficiency - start PO supplementation #Code status: Full code VTE PPx: Resume Xarelto 20 on 08/11/2023 Dispo: pending clinical improvement, CM on board for placement , Acute rehab was denied, probably when patient is more stable he may qualify for SNF Admission and Anticipated Discharge Date Admission Date: August 08, 2023 Subjective Patient seen and examined, He still gets agitated and confused, per RN he spat out all his metoprolol today Review of Systems Review of Systems: Unreliable due to confusion Physical Exam Physical Exam: The patient is awake,Alert HEENT--PERRL, EOMI, mucous membranes and oropharynx mildly dry Neck--supple. No JVD. No bruits. Thyroid normal, trachea midline, no adenopathy. Heart--normal S1 and S2. No murmurs, rubs or gallops. Lungs--clear bilaterally, no respiratory distress, no accessory muscle use. Abdomen--normal bowel sounds and soft. Extremities--no cyanosis or clubbing. No edema. Dermatologic--normal skin turgor, normal color, no abnormal lymph nodes, no rash. Neurologic--cranial nerves II through XII grossly intact. Rheumatologic--normal range of motion. Psychiatric--Unable to fully assess Results & Data Results & Data Vital Signs (Past 12 Hours) Vital Signs Temp Pulse Pulse Resp BP BP Pulse Ox 08/18/23 08:08 99.0 F 102 H 20 113/75 94 08/18/23 07:50 08/18/23 07:36 130 H 123/88 08/18/23 03:23 98.6 F 75 18 117/76 96 08/17/23 23:26 99.0 F 95 H 20 123/84 98 O2 Del Method 08/18/23 08:08 Room Air 08/18/23 07:50 Room Air 08/18/23 07:36 08/18/23 03:23 Room Air 08/17/23 23:26 Room Air PG Care Time/CCT Total # of Minutes Spent Total Time Spent with Patient: Total time spent is greater than 50% in coordination of care (as documented) at patient's floor/unit and/or counseling patient: Coding Level of Care Code 10348 SUB INP/OBS CARE 2/35MIN Diagnoses Closed displaced intertrochanteric fracture of left femur, initial encounter S72.142A Encounter type: initial encounter Fracture alignment: displaced Altered mental status R41.82 Chronic heart failure with preserved ejection fraction (HFpEF) I50.32 Atrial fibrillation with RVR I48.91 History of MRSA infection Z86.14 Postoperative anemia due to acute blood loss D62 Vitamin D deficiency E55.9 Time Spent (min) 35 (1) Closed intertrochanteric fracture of left femur Encounter type: initial encounter Fracture alignment: displaced Qualified Code(s): S72.142A - Displaced intertrochanteric fracture of left femur, initial encounter for closed fracture
[2023-08-18 14:22] LABS: BUN Creatinine Ratio 20.9 (10-20); Calcium 8.4 mg/dl (8.6-10.3); Creatinine Clr Calc Pharmacy 75.1 ml/min; Est GFR (African American) 92.6 ml/min; Est GFR (Non-African American) 79.9 ml/min; Potassium 4.1 mmol/L (3.5-5.1)
[2023-08-18] MEDS: bisacodyL 10 MG SUPP PR STA (17:11)
[2023-08-19 07:12] LABS: Hematocrit (blood only) 27.3 % (42.0-52.0); Hemoglobin 8.5 g/dl (14.0-18.0); Mean Corpuscular Hemoglobin 29.3 pg (25.0-34.0); Mean Corpuscular Hgb Conc 31.1 g/dL (32.0-36.0); Mean Corpuscular Volume 94.1 fL (80.0-100.0); Mean Platelet Volume 11.5 fL (9.4-12.4); Platelet Count 403 K/uL (130-400); RDW Coefficient of Variation 14.6 % (11.5-14.5); RDW Standard Deviation 49.7 fL (36.4-46.3); White Blood Count 11.35 K/ul (4.8-10.8)
[2023-08-19 07:37] LABS: Calcium 8.1 mg/dl (8.6-10.3); Creatinine Clr Calc Pharmacy 82.3 ml/min; Est GFR (Non-African American) 84.5 ml/min; Potassium 3.7 mmol/L (3.5-5.1)
--- NOTE | 2023-08-19 11:38 | Hospitalist Progress Note ---
Date of Service August 19, 2023 Assessment & Plan (1) Closed intertrochanteric fracture of left femur: (2) Altered mental status: (3) Chronic heart failure with preserved ejection fraction (HFpEF): (4) Atrial fibrillation with RVR: (5) History of MRSA infection: (6) Postoperative anemia due to acute blood loss: (7) Vitamin D deficiency: Plan #UTI: -Urinalysis shows evidence of UTI -Urine cultures growing Proteus mirabilis pansensitive -Continue IV ceftriaxone -Transition to p.o. antibiotics when able to consistently take by mouth #Closed intertrochanteric fracture of left femur: - Ground-level fall on 08/07; no LOC; Left femur x-ray revealed comminuted fracture of the proximal femur - OR with Dr. Sarmiento on 08/08 left long trochanteric fixation nail - Multimodal pain regimen: -Acetaminophen PO scheduled, Toradol IV for short time - Continue rivaroxaban - PT / OT recs rehab - Placement pending clinical improvement #Postop acute blood loss anemia - Ortho recs restarting xarelto - monitor Hgb closely #Hyperactive Delirium -Acute encephalopathy most likely secondary to hyperactive delirium In the setting of recent hip surgery -His mentation waxes and wanes, he needed some soft restraints with mitts. - Head CT without acute findings, MRI brain also within normal limits no acute pathology only chronic ischemic changes -Will continue to hold opioids and narcotics - required Seroquel 25 at bedtime - Currently on Seroquel 25mg nightly standing along with seroquel 12.5mg daily prn -IM olanzapine 5 mg for acute agitation only -Added melatonin p.o. to help sleep at night #Chronic heart failure with preserved ejection fraction (HFpEF): -Appears currently compensated - Last echo on 07/27/2023 revealed LVEF at 60 to 65%; moderate tricuspid regurgitation -Lasix was held prior to surgery. 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 - Continue dicloxacillin 500mg BID for chronic suppression therapy #Vitamin D deficiency - start PO supplementation #Code status: Full code VTE PPx: Nandini Hansen 20 on 08/11/2023 Dispo: pending clinical improvement, CM on board for placement , Acute rehab was denied, probably when patient is more stable he may qualify for SNF Admission and Anticipated Discharge Date Admission Date: August 08, 2023 Subjective Patient seen and examined, She still has mittens for soft restraint, but is awake and alert Review of Systems Review of Systems: Unreliable due to confusion Physical Exam Physical Exam: The patient is awake,Alert HEENT--PERRL, EOMI, mucous membranes and oropharynx mildly dry Neck--supple. No JVD. No bruits. Thyroid normal, trachea midline, no adenopathy. Heart--normal S1 and S2. No murmurs, rubs or gallops. Lungs--clear bilaterally, no respiratory distress, no accessory muscle use. Abdomen--normal bowel sounds and soft. Extremities--no cyanosis or clubbing. No edema. Dermatologic--normal skin turgor, normal color, no abnormal lymph nodes, no rash. Neurologic--cranial nerves II through XII grossly intact. Rheumatologic--normal range of motion. Psychiatric--Unable to fully assess Results & Data Results & Data Vital Signs (Past 12 Hours) Vital Signs Temp Pulse Resp BP BP Pulse Ox O2 Del Method 08/19/23 10:27 98.4 F 99 H 21 123/84 99 Nasal Cannula 08/19/23 08:03 97.9 F 98 H 20 119/76 100 Nasal Cannula 08/19/23 04:07 97.9 F 65 19 118/83 98 Nasal Cannula 08/18/23 23:38 98.1 F 116 H 18 113/79 98 Nasal Cannula O2 Flow Rate 08/19/23 10:27 2 08/19/23 08:03 2 08/19/23 04:07 2 08/18/23 23:38 2 PG Care Time/CCT Total # of Minutes Spent Total Time Spent with Patient: Total time spent is greater than 50% in coordination of care (as documented) at patient's floor/unit and/or counseling patient: Coding Level of Care Code 35201 SUB INP/OBS CARE 2/35MIN Diagnoses Closed displaced intertrochanteric fracture of left femur, initial encounter S72.142A Encounter type: initial encounter Fracture alignment: displaced Altered mental status R41.82 Chronic heart failure with preserved ejection fraction (HFpEF) I50.32 Atrial fibrillation with RVR I48.91 History of MRSA infection Z86.14 Postoperative anemia due to acute blood loss D62 Vitamin D deficiency E55.9 Time Spent (min) 35 (1) Closed intertrochanteric fracture of left femur Encounter type: initial encounter Fracture alignment: displaced Qualified Code(s): S72.142A - Displaced intertrochanteric fracture of left femur, initial encounter for closed fracture
[2023-08-20 07:14] LABS: Hematocrit (blood only) 28.9 % (42.0-52.0); Hemoglobin 8.9 g/dl (14.0-18.0); Mean Corpuscular Hemoglobin 29.2 pg (25.0-34.0); Mean Corpuscular Hgb Conc 30.8 g/dL (32.0-36.0); Mean Corpuscular Volume 94.8 fL (80.0-100.0); Mean Platelet Volume 11.7 fL (9.4-12.4); Platelet Count 425 K/uL (130-400); RDW Standard Deviation 52.4 fL (36.4-46.3); Red Blood Count 3.05 M/uL (4.70-6.10); White Blood Count 12.01 K/ul (4.8-10.8)
[2023-08-20 07:54] LABS: BUN Creatinine Ratio 19.2 (10-20); Calcium 7.8 mg/dl (8.6-10.3); Creatinine Clr Calc Pharmacy 89.7 ml/min; Est GFR (African American) 99.5 ml/min; Est GFR (Non-African American) 85.9 ml/min; Potassium 3.5 mmol/L (3.5-5.1)
--- NOTE | 2023-08-20 11:54 | Hospitalist Progress Note ---
Date of Service August 20, 2023 Assessment & Plan (1) Closed intertrochanteric fracture of left femur: (2) Altered mental status: (3) Chronic heart failure with preserved ejection fraction (HFpEF): (4) Atrial fibrillation with RVR: (5) History of MRSA infection: (6) Postoperative anemia due to acute blood loss: (7) Vitamin D deficiency: Plan #UTI: -Urinalysis shows evidence of UTI -Urine cultures growing Proteus mirabilis pansensitive -Continue IV ceftriaxone -Transition to p.o. antibiotics when able to consistently take by mouth #Closed intertrochanteric fracture of left femur: - Ground-level fall on 08/07; no LOC; Left femur x-ray revealed comminuted fracture of the proximal femur - OR with Dr. Sarmiento on 08/08 left long trochanteric fixation nail - Multimodal pain regimen: -Acetaminophen PO scheduled, If need be can utilize IV Tylenol as well. We should minimize narcotics - Continue rivaroxaban - PT / OT recs rehab - Placement pending clinical improvement #Postop acute blood loss anemia - Ortho recs restarting xarelto - monitor Hgb closely #Hyperactive Delirium -Acute encephalopathy most likely secondary to hyperactive delirium In the setting of recent hip surgery -His mentation waxes and wanes, he needed some soft restraints with mitts. - Head CT without acute findings, MRI brain also within normal limits no acute pathology only chronic ischemic changes -Will continue to hold opioids and narcotics - required Seroquel 25 at bedtime - Currently on Seroquel 25mg nightly standing along with seroquel 12.5mg daily prn -IM olanzapine 5 mg for acute agitation only -Added melatonin p.o. to help sleep at night #Chronic heart failure with preserved ejection fraction (HFpEF): -Appears currently compensated - Last echo on 07/27/2023 revealed LVEF at 60 to 65%; moderate tricuspid regurgitation -Lasix was held prior to surgery. 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 - Continue dicloxacillin 500mg BID for chronic suppression therapy (Currently on hold because of ceftriaxone) #Vitamin D deficiency - start PO supplementation #Code status: Full code VTE PPx: Resume Xarelto 20 on 08/11/2023 Dispo: pending clinical improvement, CM on board for placement , Acute rehab was denied, probably when patient is more stable he may qualify for SNF Admission and Anticipated Discharge Date Admission Date: August 08, 2023 Subjective Patient seen and examined,Has been off soft restraints since last night Review of Systems Review of Systems: Unreliable due to confusion Physical Exam Physical Exam: The patient is awake,Alert HEENT--PERRL, EOMI, mucous membranes and oropharynx mildly dry Neck--supple. No JVD. No bruits. Thyroid normal, trachea midline, no adenopa thy. Heart--normal S1 and S2. No murmurs, rubs or gallops. Lungs--clear bilaterally, no respiratory distress, no accessory muscle use. Abdomen--normal bowel sounds and soft. Extremities--no cyanosis or clubbing. No edema. Dermatologic--normal skin turgor, normal color, no abnormal lymph nodes, no rash. Neurologic--cranial nerves II through XII grossly intact. Rheumatologic--normal range of motion. Psychiatric--Unable to fully assess Results & Data Results & Data Vital Signs (Past 12 Hours) Vital Signs Temp Pulse Pulse Resp BP Pulse Ox O2 Del Method 08/20/23 10:31 98.1 F 108 H 21 137/92 95 Room Air 08/20/23 08:01 98.4 F 104 H 20 108/73 93 Nasal Cannula 08/20/23 08:00 Room Air 08/20/23 04:09 98.2 F 106 H 19 131/82 94 Room Air 08/20/23 00:17 98.2 F 96 H 18 121/74 96 Nasal Cannula 08/20/23 00:00 102 H O2 Flow Rate 08/20/23 10:31 08/20/23 08:01 2 08/20/23 08:00 08/20/23 04:09 08/20/23 00:17 2 08/20/23 00:00 PG Care Time/CCT Total # of Minutes Spent Total Time Spent with Patient: Total time spent is greater than 50% in coordination of care (as documented) at patient's floor/unit and/or counseling patient: Coding Level of Care Code 03706 SUB INP/OBS CARE MIN Diagnoses Closed displaced intertrochanteric fracture of left femur, initial encounter S72.142A Encounter type: initial encounter Fracture alignment: displaced Altered mental status R41.82 Chronic heart failure with preserved ejection fraction (HFpEF) I50.32 Atrial fibrillation with RVR I48.91 History of MRSA infection Z86.14 Postoperative anemia due to acute blood loss D62 Vitamin D deficiency E55.9 Time Spent (min) 35 (1) Closed intertrochanteric fracture of left femur Encounter type: initial encounter Fracture alignment: displaced Qualified Code(s): S72.142A - Displaced intertrochanteric fracture of left femur, initial encounter for closed fracture
[2023-08-21 06:50] LABS: Hematocrit (blood only) 30.5 % (42.0-52.0); Hemoglobin 9.6 g/dl (14.0-18.0); Mean Corpuscular Hemoglobin 29.4 pg (25.0-34.0); Mean Corpuscular Hgb Conc 31.5 g/dL (32.0-36.0); Mean Corpuscular Volume 93.3 fL (80.0-100.0); Mean Platelet Volume 11.1 fL (9.4-12.4); Nucleated RBC # (auto) 0.02 K/uL (0.00-0.12); Nucleated RBC % (auto) 0.1 %; Platelet Count 464 K/uL (130-400); RDW Coefficient of Variation 15.1 % (11.5-14.5); RDW Standard Deviation 51.5 fL (36.4-46.3); Red Blood Count 3.27 M/uL (4.70-6.10); White Blood Count 14.66 K/ul (4.8-10.8)
[2023-08-21 07:15] LABS: BUN Creatinine Ratio 17.9 (10-20); Calcium 8.2 mg/dl (8.6-10.3); Creatinine Clr Calc Pharmacy 89.7 ml/min; Est GFR (African American) 99.5 ml/min; Est GFR (Non-African American) 85.9 ml/min; Potassium 3.6 mmol/L (3.5-5.1)
--- NOTE | 2023-08-21 12:22 | Hospitalist Progress Note ---
Date of Service August 21, 2023 Assessment & Plan (1) Closed intertrochanteric fracture of left femur: (2) Altered mental status: (3) Chronic heart failure with preserved ejection fraction (HFpEF): (4) Atrial fibrillation with RVR: (5) History of MRSA infection: (6) Postoperative anemia due to acute blood loss: (7) Vitamin D deficiency: Plan #UTI: -Urinalysis shows evidence of UTI -Urine cultures growing Proteus mirabilis pansensitive -Completed the course of IV antibiotics #Closed intertrochanteric fracture of left femur: - Ground-level fall on 08/07; no LOC; Left femur x-ray revealed comminuted fracture of the proximal femur - OR with Dr. Sarmiento on 08/08 left long trochanteric fixation nail - Multimodal pain regimen: -Acetaminophen PO scheduled, If need be can utilize IV Tylenol as well. We should minimize narcotics - Continue rivaroxaban - PT / OT recs rehab - Placement pending clinical improvement #Postop acute blood loss anemia - Ortho recs restarting xarelto - monitor Hgb closely #Hyperactive Delirium -Acute encephalopathy most likely secondary to hyperactive delirium In the setting of recent hip surgery -His mentation waxes and wanes, he needed some soft restraints with mitts. - Head CT without acute findings, MRI brain also within normal limits no acute pathology only chronic ischemic changes -Will continue to hold opioids and narcotics - required Seroquel 25 at bedtime - Currently on Seroquel 25mg nightly standing along with seroquel 12.5mg daily prn -IM olanzapine 5 mg for acute agitation only -Added melatonin p.o. to help sleep at night #Chronic heart failure with preserved ejection fraction (HFpEF): -Appears currently compensated - Last echo on 07/27/2023 revealed LVEF at 60 to 65%; moderate tricuspid regurgitation -Lasix was held prior to surgery. 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 - Continue dicloxacillin 500mg BID for chronic suppression therapy #Vitamin D deficiency - start PO supplementation #Code status: Full code VTE PPx: Resume Xarelto 20 on 08/11/2023 Dispo: pending clinical improvement, CM on board for placement , Acute rehab was denied, probably when patient is more stable he may qualify for SNF Admission and Anticipated Discharge Date Admission Date: August 08, 2023 Subjective Patient seen and examined,Has been off soft restraints since last night Review of Systems Review of Systems: Unreliable due to confusion Physical Exam Physical Exam: The patient is awake,Alert HEENT--PERRL, EOMI, mucous membranes and oropharynx mildly dry Neck--supple. No JVD. No bruits. Thyroid normal, trachea midline, no adenopathy. Heart--normal S1 and S2. No murmurs, rubs or gallops. Lungs--clear bilaterally, no respiratory distress, no accessory muscle use. Abdomen--normal bowel sounds and soft. Extremities--no cyanosis or clubbing. No edema. Dermatologic--normal skin turgor, normal color, no abnormal lymph nodes, no rash. Neurologic--cranial nerves II through XII grossly intact. Rheumatologic--normal range of motion. Psychiatric--Unable to fully assess Results & Data Results & Data Vital Signs (Past 12 Hours) Vital Signs Temp Pulse Pulse Resp BP BP Pulse Ox 08/21/23 10:40 97.3 F L 88 21 107/71 95 08/21/23 10:07 08/21/23 10:01 103 H 08/21/23 07:58 97.7 F 99 H 20 117/78 93 08/21/23 04:15 98.6 F 107 H 18 131/83 94 O2 Del Method 08/21/23 10:40 Room Air 08/21/23 10:07 Room Air 08/21/23 10:01 08/21/23 07:58 Room Air 08/21/23 04:15 Room Air PG Care Time/CCT Total # of Minutes Spent Total Time Spent with Patient: Total time spent is greater than 50% in coordination of care (as documented) at patient's floor/unit and/or counseling patient: Coding Level of Care Code 73170 SUB INP/OBS CARE 2/35MIN Diagnoses Closed displaced intertrochanteric fracture of left femur, initial encounter S72.142A Encounter type: initial encounter Fracture alignment: displaced Altered mental status R41.82 Chronic heart failure with preserved ejection fraction (HFpEF) I50.32 Atrial fibrillation with RVR I48.91 History of MRSA infection Z86.14 Postoperative anemia due to acute blood loss D62 Vitamin D deficiency E55.9 Time Spent (min) 35 (1) Closed intertrochanteric fracture of left femur Encounter type: initial encounter Fracture alignment: displaced Qualified Code(s): S72.142A - Displaced intertrochanteric fracture of left femur, initial encounter for closed fracture
--- NOTE | 2023-08-21 17:57 | XRay Report ---
XR chest 1V portable CLINICAL HISTORY: Shortness of breath. COMPARISON STUDY: Chest radiograph August 14, 2023. FINDINGS: There is no pneumothorax or pleural effusion. Pulmonary vascular congestion is similar to p rior exam. Cardiomegaly is again noted. No definite consolidation is identified. IMPRESSION: Cardiomegaly with pulmonary vascular congestion, similar to prior exam. ACT 112: Negative or not required by law. Electronically signed by: Jersey Puri M.D. 08/21/2023 5:56 PM
[2023-08-22 06:37] LABS: Hematocrit (blood only) 29.4 % (42.0-52.0); Hemoglobin 9.2 g/dl (14.0-18.0); Mean Corpuscular Hemoglobin 28.9 pg (25.0-34.0); Mean Corpuscular Hgb Conc 31.3 g/dL (32.0-36.0); Mean Corpuscular Volume 92.5 fL (80.0-100.0); Platelet Count 478 K/uL (130-400); RDW Coefficient of Variation 15.4 % (11.5-14.5); RDW Standard Deviation 51.6 fL (36.4-46.3); Red Blood Count 3.18 M/uL (4.70-6.10); White Blood Count 11.83 K/ul (4.8-10.8)
[2023-08-22 07:09] LABS: BUN Creatinine Ratio 17.1 (10-20); Calcium 8.3 mg/dl (8.6-10.3); Creatinine Clr Calc Pharmacy 85.3 ml/min; Est GFR (African American) 97.5 ml/min; Est GFR (Non-African American) 84.1 ml/min; Potassium 3.3 mmol/L (3.5-5.1)
--- NOTE | 2023-08-22 12:13 | Hospitalist Progress Note ---
Date of Service August 22, 2023 Assessment & Plan (1) Closed intertrochanteric fracture of left femur: (2) Altered mental status: (3) Chronic heart failure with preserved ejection fraction (HFpEF): (4) Atrial fibrillation with RVR: (5) History of MRSA infection: (6) Postoperative anemia due to acute blood loss: (7) Vitamin D deficiency: Plan #UTI: -Urinalysis shows evidence of UTI -Urine cultures growing Proteus mirabilis pansensitive -Completed the course of IV antibiotics #Closed intertrochanteric fracture of left femur: - Ground-level fall on 08/07; no LOC; Left femur x-ray revealed comminuted fracture of the proximal femur - OR with Dr. Sarmiento on 08/08 left long trochanteric fixation nail - Multimodal pain regimen: -Acetaminophen PO scheduled, If need be can utilize IV Tylenol as well. We should minimize narcotics - Continue rivaroxaban - PT / OT recs rehab - Awaiting placement #Postop acute blood loss anemia - Ortho recs restarting xarelto - monitor Hgb closely #Hyperactive Delirium -Acute encephalopathy most likely secondary to hyperactive delirium In the setting of recent hip surgery -His mentation waxes and wanes, he needed some soft restraints with mitts. - Head CT without acute findings, MRI brain also within normal limits no acute pathology only chronic ischemic changes -Will continue to hold opioids and narcotics - required Seroquel 25 at bedtime - Currently on Seroquel 25mg nightly standing along with seroquel 12.5mg daily prn -IM olanzapine 5 mg for acute agitation only -Added melatonin p.o. to help sleep at night #Chronic heart failure with preserved ejection fraction (HFpEF): -Appears currently compensated - Last echo on 07/27/2023 revealed LVEF at 60 to 65%; moderate tricuspid regurgitation -Lasix was held prior to surgery. 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 - Continue dicloxacillin 500mg BID for chronic suppression therapy #Vitamin D deficiency - start PO supplementation #Code status: Full code VTE PPx:On Xarelto Dispo: Patient is clinically stable for SNF awaiting placement Admission and Anticipated Discharge Date Admission Date: August 08, 2023 Subjective Patient seen and examined,Lying quietly in bed, no new complaints Review of Systems Review of Systems: Unreliable due to confusion Physical Exam Physical Exam: The patient is awake,Alert HEENT--PERRL, EOMI, mucous membranes and oropharynx mildly dry Neck--supple. No JVD. No bruits. Thyroid normal, trachea midline, no adenopathy. Heart--normal S1 and S2. No murmurs, rubs or gallops. Lungs--clear bilaterally, no respiratory distress, no accessory muscle use. Abdomen--normal bowel sounds and soft. Extremities--no cyanosis or clubbing. No edema. Dermatologic--normal skin turgor, normal color, no abnormal lymph nodes, no rash. Neurologic--cranial nerves II through XII grossly intact. Rheumatologic--normal range of motion. Psychiatric--Unable to fully assess Results & Data Results & Data Vital Signs (Past 12 Hours) Vital Signs Temp Pulse Resp BP Pulse Ox O2 Del Method 08/22/23 07:30 Room Air 08/22/23 07:11 98.2 F 87 18 116/78 94 Room Air 08/22/23 05:50 62 18 94 Room Air PG Care Time/CCT Total # of Minutes Spent Total Time Spent with Patient: Total time spent is greater than 50% in coordination of care (as documented) at patient's floor/unit and/or counseling patient: Coding Level of Care Code 44735 SUB INP/OBS CARE 2/35MIN Diagnoses Closed displaced intertrochanteric fracture of left femur, initial encounter S72.142A Encounter type: initial encounter Fracture alignment: displaced Altered mental status R41.82 Chronic heart failure with preserved ejection fraction (HFpEF) I50.32 Atrial fibrillation with RVR I48.91 History of MRSA infection Z86.14 Postoperative anemia due to acute blood loss D62 Vitamin D deficiency E55.9 Time Spent (min) 35 (1) Closed intertrochanteric fracture of left femur Encounter type: initial encounter Fracture alignment: displaced Qualified Code(s): S72.142A - Displaced intertrochanteric fracture of left femur, initial encounter for closed fracture
[2023-08-23 06:45] LABS: Hemoglobin 9.4 g/dl (14.0-18.0); Mean Corpuscular Hgb Conc 31.3 g/dL (32.0-36.0); Mean Corpuscular Volume 92.6 fL (80.0-100.0); Mean Platelet Volume 11.3 fL (9.4-12.4); Platelet Count 530 K/uL (130-400); RDW Coefficient of Variation 15.3 % (11.5-14.5); RDW Standard Deviation 51.2 fL (36.4-46.3); Red Blood Count 3.24 M/uL (4.70-6.10); White Blood Count 10.52 K/ul (4.8-10.8)
[2023-08-23 07:08] LABS: BUN Creatinine Ratio 19.5 (10-20); Calcium 8.3 mg/dl (8.6-10.3); Creatinine Clr Calc Pharmacy 93.1 ml/min; Est GFR (Non-African American) 86.3 ml/min; Potassium 3.4 mmol/L (3.5-5.1)
[2023-08-23] MEDS: POTASSIUM CHLORIDE CRTAB 20 MEQ TABCR PO STA (08:17)
[2023-08-23] MEDS: ALBUT/IPRATROP 3MG/0.5MG NEB 3 ML VIAL NEB STA (10:05)
--- NOTE | 2023-08-23 10:09 | Hospitalist Progress Note ---
Date of Service August 23, 2023 Assessment & Plan (1) Closed intertrochanteric fracture of left femur: (2) Altered mental status: (3) Chronic heart failure with preserved ejection fraction (HFpEF): (4) Atrial fibrillation with RVR: (5) History of MRSA infection: (6) Postoperative anemia due to acute blood loss: (7) Vitamin D deficiency: Plan #UTI: -Urinalysis shows evidence of UTI -Urine cultures growing Proteus mirabilis pansensitive -Completed the course of IV antibiotics #Closed intertrochanteric fracture of left femur: - Ground-level fall on 08/07; no LOC; Left femur x-ray revealed comminuted fracture of the proximal femur - OR with Dr. Sarmiento on 08/08 left long trochanteric fixation nail - Multimodal pain regimen: -Acetaminophen PO scheduled, If need be can utilize IV Tylenol as well. We should minimize narcotics - Continue rivaroxaban - PT / OT recs rehab - Awaiting placement #Postop acute blood loss anemia - Ortho recs restarting xarelto - monitor Hgb closely #Hyperactive Delirium -Acute encephalopathy most likely secondary to hyperactive delirium In the setting of recent hip surgery -His mentation waxes and wanes, he needed some soft restraints with mitts. - Head CT without acute findings, MRI brain also within normal limits no acute pathology only chronic ischemic changes -Will continue to hold opioids and narcotics - required Seroquel 25 at bedtime - Currently on Seroquel 25mg nightly standing along with seroquel 12.5mg daily prn -IM olanzapine 5 mg for acute agitation only -Added melatonin p.o. to help sleep at night #Chronic heart failure with preserved ejection fraction (HFpEF): -Appears currently compensated - Last echo on 07/27/2023 revealed LVEF at 60 to 65%; moderate tricuspid regurgitation -Repeat x-ray showed some pulmonary congestion and also has some crackles on exam. Will give a dose of IV Lasix 40 mg today and continue his home 20 mg p.o. -Monitor input and output, daily weights. #Atrial fibrillation with RVR: - HR increases during agitation - A-fib with RVR on arrival, typically on metoprolol succinate 25mg daily - Lopressor 5mg IV q6h as needed for HR>140bpm- with good results #History of MRSA infection: - 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 - Continue dicloxacillin 500mg BID for chronic suppression therapy #Vitamin D deficiency - start PO supplementation #Expiratory wheeze on exam: No history of COPD could be from pulmonary congestion. Diuresis as above and also DuoNebs. #Code status: Full code VTE PPx:On Xarelto Dispo: Patient is clinically stable for SNF awaiting placement Admission and Anticipated Discharge Date Admission Date: August 08, 2023 Subjective Patient seen and examined,Lying quietly in bed, no new complaints, He is now more awake alert and oriented Review of Systems Review of Systems: Unreliable due to confusion Physical Exam Physical Exam: The patient is awake,Alert HEENT--PERRL, EOMI, mucous membranes and oropharynx mildly dry Neck--supple. No JVD. No bruits. Thyroid normal, trachea midline, no adenopathy. Heart--normal S1 and S2. No murmurs, rubs or gallops. Lungs--clear bilaterally, no respiratory distress, no accessory muscle use. Abdomen--normal bowel sounds and soft. Extremities--no cyanosis or clubbing. No edema. Dermatologic--normal skin turgor, normal color, no abnormal lymph nodes, no rash. Neurologic--cranial nerves II through XII grossly intact. Rheumatologic--normal range of motion. Psychiatric--Unable to fully assess Results & Data Results & Data Vital Signs (Past 12 Hours) Vital Signs Temp Pulse Resp BP Pulse Ox O2 Del Method 08/23/23 10:06 102 H 18 94 Room Air 08/23/23 08:00 Room Air 08/23/23 07:22 98.1 F 102 H 15 122/82 95 Room Air PG Care Time/CCT Total # of Minutes Spent Total Time Spent with Patient: Total time spent is greater than 50% in coordination of care (as documented) at patient's floor/unit and/or counseling patient: Coding Level of Care Code 94438 SUB INP/OBS CARE 2/35MIN Diagnoses Closed displaced intertrochanteric fracture of left femur, initial encounter S72.142A Encounter type: initial encounter Fracture alignment: displaced Altered mental status R41.82 Chronic heart failure with preserved ejection fraction (HFpEF) I50.32 Atrial fibrillation with RVR I48.91 History of MRSA infection Z86.14 Postoperative anemia due to acute blood loss D62 Vitamin D deficiency E55.9 Time Spent (min) 35 (1) Closed intertrochanteric fracture of left femur Encounter type: initial encounter Fracture alignment: displaced Qualified Code(s): S72.142A - Displaced intertrochanteric fracture of left femur, initial encounter for closed fracture
[2023-08-23] MEDS: FUROSEMIDE 40 MG/4 ML VIAL IV ONE (10:41)
--- NOTE | 2023-08-24 08:13 | Orthopedic Progress Note ---
Date of Service August 24, 2023 Assessment & Plan (1) Closed intertrochanteric fracture of left femur: - Patient is postop day 15 from a left long intertrochanteric nailing. This is due to an intertrochanteric hip fracture. -Wound check was satisfactory today. Hansen were removed and Steri-Strips were placed. Routine wound care. -He may remain weightbearing as tolerated and range of motion as tolerated left lower extremity. I am aware that his mental status is altered and that he has not been ambulating with therapy due to medical comorbidities. -Should continue to work with therapy as tolerated -Patient waiting placement for [facility] facility. -He is already 2 weeks out from his surgery, therefore I have ordered x-rays of the left femur and left hip to see how the implant is sitting. -Once he is discharged, please call our office to help make a postop appointment. -Xarelto for DVT prophylaxis Subjective Operation Date: 08/09/23 07:00 Actual Procedures p Left Intertrochanteric Femur fracture closed reduction and internal fixation with Long Trochanteric Fixation Nail (Left) - Baldemar Sarmiento MD Kvng is postop day 15 from the surgery above. He is still in the hospital as they are currently awaiting placement for a rehab/[facility] facility center. At today's visit, he is alert, however is in and out with his orientation. This is known altered mental status since his admission. He is not in any acute distress. Hansen were removed at today's visit as he is over 2 weeks out from his surgery. The wounds were then covered with Steri-Strips. Wound check satisfactory. I will place order for x-ray so we can keep an eye on this. He is able to be weightbearing as tolerated and range of motion as tolerated in the left lower extremity. Review of Systems All systems reviewed & are unremarkable except as noted in HPI & below. Physical Exam General: Alert, however cognition is in and out. He is pleasant at today's visit. Left hip: Wound check satisfactory. No erythema, edema, drainage or dehiscence with any of the wounds. Hansen were removed at today's check. Steri-Strips were placed over the surgical wounds. Sensation intact. Distal pulses palpated. Cap refill less than 3 seconds in the left lower extremity. He does have limited range of motion of the hip. Nursing staff states that this is his baseline and he has not been up and walking very much. Results & Data Results & Data Laboratory Results . Diagnostic Findings . PG Care Time/CCT Total # of Minutes Spent Total Time Spent with Patient: Total time spent is greater than 50% in coordination of care (as documented) at patient's floor/unit and/or counseling patient: Coding Level of Care Code 06972 Post Operative Follow-Up Diagnoses Closed displaced intertrochanteric fracture of left femur, initial encounter S72.142A Encounter type: initial encounter Fracture alignment: displaced (1) Closed intertrochanteric fracture of left femur Encounter type: initial encounter Fracture alignment: displaced Qualified C ode(s): S72.142A - Displaced intertrochanteric fracture of left femur, initial encounter for closed fracture
[2023-08-24 08:58] LABS: Hematocrit (blood only) 32.4 % (42.0-52.0); Hemoglobin 10.2 g/dl (14.0-18.0); Mean Corpuscular Hemoglobin 29.2 pg (25.0-34.0); Mean Corpuscular Hgb Conc 31.5 g/dL (32.0-36.0); Mean Corpuscular Volume 92.8 fL (80.0-100.0); Mean Platelet Volume 10.9 fL (9.4-12.4); Platelet Count 589 K/uL (130-400); RDW Coefficient of Variation 15.8 % (11.5-14.5); RDW Standard Deviation 53.1 fL (36.4-46.3); Red Blood Count 3.49 M/uL (4.70-6.10); White Blood Count 10.66 K/ul (4.8-10.8)
--- NOTE | 2023-08-24 09:09 | Hospitalist Progress Note ---
Date of Service August 24, 2023 Assessment & Plan (1) Closed intertrochanteric fracture of left femur: Plan: Closed intertrochanteric fracture of left femur: - Ground-level fall on 08/07; no LOC; Left femur x-ray revealed comminuted fracture of the proximal femur - OR with Dr. Sarmiento on 08/08 left long trochanteric fixation nail - Multimodal pain regimen: -Acetaminophen PO scheduled, If need be can utilize IV Tylenol as well. We should minimize narcotics - Continue rivaroxaban cautiously with acute blood loss anemia post op - PT / OT recs rehab Vitamin D deficiency - start PO supplementation - Awaiting placement (2) Altered mental status: Plan: Acute encephalopathy most likely secondary to hyperactive delirium In the setting of recent hip surgery -His mentation waxes and wanes, patient has had good improvement we will try some thiamine therapy started on 08/24/2023 - Head CT without acute findings, MRI brain also within normal limits no acute pathology only chronic ischemic changes -Will continue to hold opioids and narcotics - required Seroquel 25 at bedtime - Currently on Seroquel 25mg nightly standing along with seroquel 12.5mg daily prn -IM olanzapine 5 mg for acute agitation only -Added melatonin p.o. to help sleep at night (3) Chronic heart failure with preserved ejection fraction (HFpEF): Plan: Chronic heart failure with preserved ejection fraction (HFpEF): -Appears currently compensated - Last echo on 07/27/2023 revealed LVEF at 60 to 65%; moderate tricuspid regurgitation -Repeat x-ray showed some pulmonary congestion and also has some crackles on exam. Lasix 20 mg p.o. 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 I did see him postoperatively and he was confused me about that time it was relative to the recent anesthesia and pain medications. I do not see a miming on his chart he was given dose of thiamine having level checked. Evaluation of his surgical scar is clean dry and intact orthopedics has seen and ordered repeat x-rays to evaluate surgical hardware Physical Exam Physical Exam: Oriented x 2 did provide some historical information about himself. Offers no focal complaints or problems. Card exam today is regular with a systolic murmur lungs are clear abdomen NABS Results & Data Results & Data Vital Signs (Past 12 Hours) Vital Signs Temp Pulse Resp BP Pulse Ox O2 Del Method 08/24/23 07:27 97.5 F L 97 H 18 115/83 96 Room Air Laboratory Results Reviewed CBC reviewed chemistry PG Care Time/CCT Total # of Minutes Spent Total Time Spent with Patient: Total time spent is greater than 50% in coordination of care (as documented) at patient's floor/unit and/or counseling patient: Coding Level of Care Code 42844 SUB INP/OBS CARE 2/35MIN Diagnoses Closed displaced intertrochanteric fracture of left femur, initial encounter S72.142A Encounter type: initial encounter Fracture alignment: displaced Altered mental status R41.82 Chronic heart failure with preserved ejection fraction (HFpEF) I50.32 History of MRSA infection Z86.14 (1) Closed intertrochanteric fracture of left femur Encounter type: initial encounter Fracture alignment: displaced Qualified Code(s): S72.142A - Displaced intertrochanteric fracture of left femur, initial encounter for closed fracture
[2023-08-24 09:15] LABS: Calcium 8.7 mg/dl (8.6-10.3); Creatinine Clr Calc Pharmacy 95.6 ml/min; Est GFR (African American) 101.1 ml/min; Est GFR (Non-African American) 87.2 ml/min; Potassium 3.5 mmol/L (3.5-5.1)
[2023-08-24] MEDS: THIAMINE HCL 500 MG in SODIUM CHLORIDE 0.9% 50 ML IV STA (10:37)
--- NOTE | 2023-08-24 17:19 | XRay Report ---
XR femur LT 2V routine CLINICAL HISTORY: s/p left long troch nail 08/09/23 COMPARISON: Left femur radiographs August 09, 2023. FINDINGS: There are stable postoperative findings following internal fixation of the intertrochanter ic fracture of the left femur with long trochanteric nail. No new fractures are identified. Displacem ent of the lesser trochanter was shown on prior exam. The hardware is intact. IMPRESSION: Stable postoperative findings following internal fixation of the intertrochanteric fractu re of the left femur. ACT 112: Negative or not required by law. Electronically signed by: Jersey Puri M.D. 08/24/2023 5:18 PM
--- NOTE | 2023-08-25 17:14 | Hospitalist Progress Note ---
Date of Service August 25, 2023 Assessment & Plan (1) Closed intertrochanteric fracture of left femur: Plan: Closed intertrochanteric fracture of left femur: - Ground-level fall on 08/07; no LOC; Left femur x-ray revealed comminuted fracture of the proximal femur - OR with Dr. Sarmiento on 08/08 left long trochanteric fixation nail - Multimodal pain regimen: -Acetaminophen PO scheduled, If need be can utilize IV Tylenol as well. We should minimize narcotics - Continue rivaroxaban cautiously with acute blood loss anemia post op - PT / OT recs rehab Vitamin D deficiency - start PO supplementation - Awaiting placement (2) Altered mental status: Plan: Acute encephalopathy most likely secondary to hyperactive delirium In the setting of recent hip surgery -His mentation waxes and wanes, patient has had good improvement we will try some thiamine therapy started on 08/24/2023 - Head CT without acute findings, MRI brain also within normal limits no acute pathology only chronic ischemic changes -Will continue to hold opioids and narcotics - required Seroquel 25 at bedtime - Currently on Seroquel 25mg nightly standing along with seroquel 12.5mg daily prn -IM olanzapine 5 mg for acute agitation only -Added melatonin p.o. to help sleep at night (3) Chronic heart failure with preserved ejection fraction (HFpEF): Plan: Chronic heart failure with preserved ejection fraction (HFpEF): -Appears currently compensated - Last echo on 07/27/2023 revealed LVEF at 60 to 65%; moderate tricuspid regurgitation -Repeat x-ray showed some pulmonary congestion and also has some crackles on exam. Lasix 20 mg p.o. 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 Evaluation of his surgical scar is clean dry and intact orthopedics has seen and ordered repeat x-rays to evaluate surgical hardware PG Care Time/CCT Total # of Minutes Spent Total Time Spent with Patient: Total time spent is greater than 50% in coordination of care (as documented) at patient's floor/unit and/or counseling patient: Coding Diagnoses Closed displaced intertrochanteric fracture of left femur, initial encounter S72.142A Encounter type: initial encounter Fracture alignment: displaced Altered mental status R41.82 Chronic heart failure with preserved ejection fraction (HFpEF) I50.32 History of MRSA infection Z86.14 (1) Closed intertrochanteric fracture of left femur Encounter type: initial encounter Fracture alignment: displaced Qualified Code(s): S72.142A - Displaced intertrochanteric fracture of left femur, initial encounter for closed fracture
--- NOTE | 2023-08-25 17:17 | Discharge Summary ---
Discharge Summary Date of Service August 25, 2023 Principal Dx & Hospital Course #1 = Principal Diagnosis (1) Closed intertrochanteric fracture of left femur: Closed intertrochanteric fracture of left femur: - Ground-level fall on 08/07; no LOC; Left femur x-ray revealed comminuted fracture of the proximal femur - OR with Dr. Sarmiento on 08/08 left long trochanteric fixation nail - Multimodal pain regimen: -Acetaminophen PO scheduled, - Continue rivaroxaban cautiously with acute blood loss anemia post op transfer to rehab 08/25/23 Vitamin D deficiency - start PO supplementation (2) Altered mental status: Acute encephalopathy most likely secondary to hyperactive delirium In the setting of recent hip surgery -His mentation waxes and wanes, patient has had good improvement we will try some thiamine therapy started on 08/24/2023 - Head CT without acute findings, MRI brain also within normal limits no acute pathology only chronic ischemic changes -Will continue to hold opioids and narcotics - required Seroquel 25 at bedtime - Currently on Seroquel 25mg nightly standing along with seroquel 12.5mg daily prn -added thiamine po -Added melatonin p.o. to help sleep at night (3) Chronic heart failure with preserved ejection fraction (HFpEF): Chronic heart failure with preserved ejection fraction (HFpEF): -Appears currently compensated - Last echo on 07/27/2023 revealed LVEF at 60 to 65%; moderate tricuspid regurgitation -Repeat x-ray showed some pulmonary congestion and also has some crackles on exam. Lasix 20 mg p.o. 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 He presented via EMS after sustaining a ground-level fall from standing on 08/07. Patient exhibits some confusion at time of admission, and responds with slow, paused speech. Patient reports that he tripped while stepping out of his doorway around 1330 today. No LOC. No head strike. On Xar elto. Patient was unable to put weight on his left leg after the incident. He lives with his son. He denies any prior falls, but notes he was not using his walker at the time of the fall. He denies pain after receiving morphine in the ED, but does note intermittent, sharp pain that radiates down the left thigh into the foot with movements. He rates it 10/10 whenever it comes on, but reports that it is not frequent as long as he keeps his leg still. He did not take any pain medicine prior to coming to the hospital. He reports that he did take his regular morning medications today, including his Xarelto for atrial fibrillation. In terms of cardiac history, he denies history of stroke, MD, diabetes, or heart stents. He denies smoking, tobacco use, and recent alcohol use. It should be noted that the patient is not alert and oriented to month or season, and reports that it is "March" when asked what month it is. He is alert and oriented to name//location. Patient is tachycardic at 111 BPM at time of admission; SpO2 92% on RA. ED course: Morphine sulfate 4 mg IV x 2 Zofran 4 mg IV ROS: Patient endorses intermittent/sharp pain radiating down the left leg with movements. Patient denies fever, chills, night-sweats, dizziness, lightheadedness, MAIER, chest pain, chest palpitations, SOB, cough, abdominal pain, N/V/D, change in urinary/bowel habits, burning with urination, blood in the urine/stool, or numbness/tingling in the left leg. Spoke on the phone with patient's daughter (Judy) regarding admission and possible surgery. Daughter reports that the patient lives with his son, and was not using a walker at the time of the fall. She reports that he did take all of his regular morning medications, and takes dicloxacillin for chronic suppression therapy of a MRSA infection in his left knee since 2010. She confirms that he has no history of stroke, MD, heart stents, or DM. When asked if he has had any recent changes in cognitive baseline, she reports that sometimes he has difficulty hearing when he does not have his hearing aids in. Patient reports that she is his power of lcsw, along with his 2 other sons (Vince and Chava). She confirms that he wishes to be a full code in the event of an emergency. Discharge Exam Awake alert and appropriate. Card exam is regular Lungs are clear anteriorly and laterally Left leg with good intact sensation and capillary refill Updated Medication List Medication Instructions Recorded Confirmed Type multivitamin-ferrous 1 tab PO QAM 06/04/18 08/08/23 History fumarate-folic acid 18 mg-400 mcg tablet (Centrum) metoprolol succinate 25 mg 25 mg PO QAM #90 tabs 10/31/22 08/08/23 Rx tablet,extended release 24 hr rivaroxaban 20 mg tablet (Xarelto) 20 mg PO QAM #90 tabs 10/31/22 08/08/23 Rx dicloxacillin 500 mg capsule 500 mg PO BID Pyogenic bacterial 03/24/23 08/08/23 Rx arthritis of knee #180 caps albuterol sulfate 90 mcg/actuation 2 puff inhalation Q6H PRN 06/29/23 08/08/23 Rx aerosol inhaler shortness of breath or wheezing #8.5 grams furosemide 20 mg tablet 20 mg PO DAILY #90 tabs 07/07/23 08/08/23 Rx potassium chloride 20 mEq 20 meq PO QAM 08/08/23 08/08/23 History tablet,extended release Hospital Stay Data Consultations 08/08/23 17:30 ED Decision to Admit Stat 08/08/23 17:42 Consult Cardiology Routine 08/08/23 20:48 Consult Orthopedic Surgery Routine 08/13/23 17:15 Consult Psychiatry Routine Procedures Performed Operation Date: 08/09/23 07:00 Actual Procedures p Left Long Trochanteric Fixation Nail (Left) - Baldemar Sarmiento MD Diagnostic Imagining Performed 08/08/23 17:47 CT hip LT wo con Stat 08/08/23 18:[address] [CT head/brain wo con] Stat 08/09/23 15:00 FL femur LT 2V Routine 08/15/23 13:55 MRI Brain [MR brain wo con] Routine Discharge Instructions Given to Patient (Per Discharging Provider) Orthopaedic Instructions after Hip Fracture Surgery: Please keep your wound clean and dry. Do not remove any of the flavia. [place] were removed at your follow-up appointment with orthopedic surgery. Please continue daily dressing changes until your follow-up appointment. If there is no drainage onto the dressing for total of 24 hours, you may shower after 5 days from surgery. Allow soap and water to run over the incision, no scrubbing, and pat dry. Do not submerse (sitting in bathtub, hot tub, jacuzzi, pool, etc) the wound for at least 3 weeks. You may bear weight on your lower extremities as tolerated. Please use the walker or as instructed by physical therapy. For pain control please use Tylenol as needed. You may also have a stronger pain medication prescribed to you at discharge. You can also apply ice to the surgical site. To reduce the risk of dangerous blood clots please continue your previous Xarelto. Orthopedic clinic follow-up should be in 2-3 weeks after surgery for wound check and staple removal. We will repeat x-rays. [place] will be removed at the orthopedic follow-up. If necessary, flavia can be removed by a nurse at home or at a nursing facility upon our order. Please contact the clinic. Repeat x- ray should be performed no later than 6 weeks after surgery. Total Time Total Time Spent Total Time Spent (In Minutes): It required greater than 30 minutes to prepare this patient for discharge. Coding Level of Care Code 21117 INP/OBS DISCH >30 MIN Diagnoses Closed displaced intertrochanteric fracture of left femur, initial encounter S72.142A Encounter type: initial encounter Fracture alignment: displaced Altered mental status R41.82 Chronic heart failure with preserved ejection fraction (HFpEF) I50.32 History of MRSA infection Z86.14
== END 2023-08-25 14:00 | DRG 481 ==
LOC: ED 14:23 → SUATTDRO 17:54 → 2E 17:54 → 3N 08-21 15:25